=== PATIENT | male | born 1955 | race Caucasian/White ===

== ENCOUNTER 2016-11-27 21:54 | Inpatient (IN) | payer BC, MEDICARE ==
[~2016-11-27] VITALS: Ht 182.9 cm; Wt 96.3 kg
--- NOTE | 2016-11-27 21:45 | NUR ---
ADMIT DIRECT ADMIT TO SURGICAL RM 132 FROM [facility]IA [facility].
[~2016-11-27 21:54] MED LIST: ALBU2.5V7 AEROSOL; ATOR40TA64 PO; BENZ200C36 PO; BUME1TAB17 PO; GLYB5TAB8 PO; INSU100I3 SQ; INSU100V8 SQ; LEVO750T20 PO; METF500T4 PO; METO25TA6 PO; MULT-933 PO; POTA20TA10 PO; PRED10TA PO; SPIR25TA4 PO; TIOT18CA3 ORAL INH; WARF5TAB76 PO
[2016-11-27 21:55] VITALS: RESP 28
--- OUTSIDE RECORDS SUMMARY | 2016-11-27 22:01 | XMS REPORT ---
Author Author Lynne Lanier Organization [employer] Address Unknown Phone Unavailable Care Team Providers Care Memorial Designer Name Role Phone Lynne Lanier CP Unavailable Allergies No Known Allergies Problems Problem Type Condition ICD-9 Code Onset Dates Condition Status Problem Acute venous embolism and thrombosis of unspecified deep vessels of lower extremity 453.40 Active Problem Tobacco abuse V15.82 Active Problem Impotence of organic origin 607.84 Active Problem Coronary atherosclerosis of unspecified type of vessel, [place] or graft 414.00 Active Problem Coronary atherosclerosis of [place] coronary artery 414.01 Active Problem Personal history of venous thrombosis and embolism V12.51 Active Problem Anticoagulation therapy V58.61 Active Problem Congestive heart failure, unspecified 428.0 Active Problem Coronary atherosclerosis of [place] coronary artery 414.01 Active Problem Diabetes Mellitus Type 2, not stated as uncontrolled 250.00 Active Assessment Anticoagulation therapy V58.61 Active Problem Mixed hyperlipidemia 272.2 Active Problem COPD 496 Active Problem Diabetes mellitus without mention of complication, type II or unspecified type, uncontrolled 250.02 Active Medications Medication Code System Code Instructions Start Date End Date Status Dosage Warfarin Sodium [facility] [address]-63 5MG Orally as directed take 1 tablet every day exept Wed take 1.5 tablets for a dose of 7.5mg Results No Known Results Summary Purpose eClinicalWorks Submission
--- OUTSIDE RECORDS SUMMARY | 2016-11-27 22:01 | XMS REPORT ---
Author Lynne Modi [facility] e[employer] Address Unknown Phone Unavailable Care Team Providers Care Pharmacy Grad Intern Name Role Phone Lynne Lanier CP Unavailable Allergies, Adverse Reactions, Alerts Substance Reaction Event Type Penicillin fever Drug Allergy Problems Problem Type Condition ICD-9 Code Onset Dates Condition Status Problem Tobacco abuse V15.82 Active Problem Impotence of organic origin 607.84 Active Problem Congestive heart failure, unspecified 428.0 Active Assessment Cough 786.2 Active Problem Acute venous embolism and thrombosis of unspecified deep vessels of lower extremity 453.40 Active Problem Diabetes mellitus without mention of complication, type II or unspecified type, uncontrolled 250.02 Active Medications Medication Code System Code Instructions Start Date End Date Status Dosage Lasix [facility] [address]-10 20 MG Orally Once a day Oct 11, 2014 1 tablet Ventolin HFA [facility] 2] [address]-52 108 (90 Base) MCG/ACT Inhalation every 4 hrs Oct 23, 2013 2 puffs as needed doxycycline NDC 0 100 mg Orally BID Nov 29, 2014 Dec 06, 2014 1 capsule GlyBURIDE [facility] 2] [address]-91 5MG Orally Once a day TAKE ONE TABLET BY MOUTH ONCE DAILY Viagra [facility] 2] [address]-27 100 MG Orally Once a day Oct 08, 2013 1 tablet as needed Benadryl [facility] [place] 2] [address]-06 25 MG Orally takesp in am 4 ca 1 capsule as needed Lantus SoloStar [facility] [place]NOTE 2] [address]-59 100 UNIT/ML Subcutaneous QHS Nov 19, 2014 20 units Albuterol Sulfate [facility] [place]NOTE 2] [address]-70 1.25 MG/3ML Inhalation qid Oct 12, 2014 3 ml as needed Metformin HCl [facility] [place]NOTE 2] [address]-80 500 MG Orally Twice a day February 18, 2014 1 tablet with meals Warfarin Sodium [facility] [place]NOTE 2] [address]-96 5MG TAKE ONE & ONE-HALF TABLETS BY MOUTH ONCE DAILY Procedures Procedure Coding System Code Date OFFICE VISIT, EST-LOW COMPLEXITY (15 MIN.) CPT-4 94016 Nov 29, 2014 RAPID INFLUENZA, IN HOUSE CPT-4 15341 Nov 29, 2014 Vital Signs Date/Time: Nov 29, 2014 Height 71.5 inches Weight 215.8 lbs Temperature 97.8 F Oximetry 96 % Blood Pressure Diastolic 82 mm Hg Blood Pressure Systolic 112 mm Hg Cardiac Monitoring Heart Rate 80 Beats per Minute Results No Known Results Summary Purpose eClinicalWorks Submission
--- OUTSIDE RECORDS SUMMARY | 2016-11-27 22:01 | XMS REPORT ---
Author Author Lynne Lanier Organization [employer] Address Unknown Phone Unavailable Care Team Providers Care Financial Reporting Manager Name Role Phone Lynne Lanier CP Unavailable Allergies No Known Allergies Problems Problem Type Condition ICD-9 Code Onset Dates Condition Status Problem Tobacco abuse V15.82 Active Problem Impotence of organic origin 607.84 Active Problem Congestive heart failure, unspecified 428.0 Active Problem COPD 496 Active Problem Mixed hyperlipidemia 272.2 Active Problem Acute venous embolism and thrombosis of unspecified deep vessels of lower extremity 453.40 Active Problem Diabetes mellitus without mention of complication, type II or unspecified type, uncontrolled 250.02 Active Medications No Known Medications Results No Known Results Summary Purpose eClinicalWorks Submission
--- OUTSIDE RECORDS SUMMARY | 2016-11-27 22:01 | XMS REPORT ---
Author Author Lynne Lanier Organization [employer] Address Unknown Phone Unavailable Care Team Providers Care Memorial Adviser Name Role Phone Lynne Lanier CP Unavailable Allergies No Known Allergies Problems Problem Type Condition ICD-9 Code Onset Dates Condition Status Problem Tobacco abuse V15.82 Active Problem Impotence of organic origin 607.84 Active Problem Congestive heart failure, unspecified 428.0 Active Problem Acute venous embolism and thrombosis of unspecified deep vessels of lower extremity 453.40 Active Problem Diabetes mellitus without mention of complication, type II or unspecified type, uncontrolled 250.02 Active Medications Medication Code System Code Instructions Start Date End Date Status Dosage Lantus SoloStar [facility] [address]-79 100 UNIT/ML Subcutaneous QHS Nov 19, 2014 Active 20 units Vital Signs Date/Time: Nov 17, 2014 Height 71.5 inches Weight 208.4 lbs Temperature 98.6 F Blood Pressure Diastolic 88 mm Hg Blood Pressure Systolic 118 mm Hg Cardiac Monitoring Heart Rate 90 Beats per Minute BMI 28.66 Index Oximetry 95 % Results No Known Results Summary Purpose eClinicalWorks Submission
--- OUTSIDE RECORDS SUMMARY | 2016-11-27 22:01 | XMS REPORT ---
Author Author Carisa Pastor Organization [employer] Address Unknown Phone Unavailable Care Team Providers Care Farmworker [employer] Name Role Phone Carisa Pastor CP Unavailable Allergies No Known Allergies Problems Problem Type Condition Code Onset Dates Condition Status Problem Tobacco abuse V15.82 Active Problem Anticoagulation therapy V58.61 Active Problem Congestive heart failure, unspecified 428.0 Active Problem Type 2 diabetes mellitus with hyperglycemia E11.65 Active Problem Personal history of venous thrombosis and embolism V12.51 Active Problem Chronic obstructive pulmonary disease with (acute) exacerbation J44.1 Active Problem Coronary atherosclerosis of [place] coronary artery 414.01 Active Problem Diabetes Mellitus Type 2, not stated as uncontrolled 250.00 Active Problem Coronary atherosclerosis of unspecified type of vessel, [place] or graft 414.00 Active Problem Coronary atherosclerosis of [place] coronary artery 414.01 Active Problem COPD 496 Active Problem Diabetes mellitus without mention of complication, type II or unspecified type, uncontrolled 250.02 Active Problem Acute thromboembolism of deep veins of lower extremity I82.409 Active Problem Mixed hyperlipidemia E78.2 Active Problem Impotence of organic origin 607.84 Active Medications Medication Code System Code Instructions Start Date End Date Status Dosage Metoprolol Tartrate [facility] [address]-84 50 MG Orally Twice a day Aug 08, 2016 1 tablet Results No Known Results Summary Purpose eClinicalWorks Submission
--- OUTSIDE RECORDS SUMMARY | 2016-11-27 22:01 | XMS REPORT ---
Author Author Lynne Lanier Organization [employer] Address Unknown Phone Unavailable Care Team Providers Care Business Continuity Management Director Name Role Phone Lynne Lanier CP Unavailable Allergies No Known Allergies Problems Problem Type Condition ICD-9 Code Onset Dates Condition Status Problem Diabetes mellitus without mention of complication, type II or unspecified type, uncontrolled 250.02 Active Problem Impotence of organic origin 607.84 Active Problem Acute venous embolism and thrombosis of unspecified deep vessels of lower extremity 453.40 Active Problem Mixed hyperlipidemia 272.2 Active Problem COPD 496 Active Problem Coronary atherosclerosis of unspecified type of vessel, [place] or graft 414.00 Active Problem Coronary atherosclerosis of [place] coronary artery 414.01 Active Problem Personal history of venous thrombosis and embolism V12.51 Active Problem Congestive heart failure, unspecified 428.0 Active Problem Tobacco abuse V15.82 Active Problem Diabetes Mellitus Type 2, not stated as uncontrolled 250.00 Active Problem Anticoagulation therapy V58.61 Active Medications Medication Code System Code Instructions Start Date End Date Status Dosage Metformin HCl [facility] [address]-70 500 MG Orally Twice a day February 18, 2014 1 tablet with meals Results No Known Results Summary Purpose eClinicalWorks Submission
--- OUTSIDE RECORDS SUMMARY | 2016-11-27 22:02 | XMS REPORT ---
Author Moreno Dugan Organization [employer] Address Unknown Phone Unavailable Care Team Providers Care Integrated Logistics Programs Director Name Role Phone Moreno León CP Unavailable Allergies, Adverse Reactions, Alerts Substance Reaction Event Type Penicillin fever Drug Allergy Percocet vomiting Drug Allergy Problems Problem Type Condition Code Onset Dates Condition Status Problem Acute venous embolism and thrombosis of unspecified deep vessels of lower extremity 453.40 Active Problem Tobacco abuse V15.82 Active Problem Impotence of organic origin 607.84 Active Problem Coronary atherosclerosis of unspecified type of vessel, [place] or graft 414.00 Active Problem Coronary atherosclerosis of [place] coronary artery 414.01 Active Problem Personal history of venous thrombosis and embolism V12.51 Active Problem Anticoagulation therapy V58.61 Active Problem Congestive heart failure, unspecified 428.0 Active Problem Coronary atherosclerosis of [place] coronary artery 414.01 Active Problem Diabetes Mellitus Type 2, not stated as uncontrolled 250.00 Active Assessment halfway (current) use of anticoagulants Z79.01 Active Assessment Other specified diabetes mellitus without complications E13.9 Active Problem Mixed hyperlipidemia 272.2 Active Assessment Acute kidney failure, unspecified N17.9 Active Problem COPD 496 Active Assessment Abnormal results of liver function studies R94.5 Active Problem Diabetes mellitus without mention of complication, type II or unspecified type, uncontrolled 250.02 Active Medications Medication Code System Code Instructions Start Date End Date Status Dosage Potassium Bicarb-Citric Acid [facility] [place] [address]-87 20 MEQ Orally Once a day 1 tablet ProAir HFA [facility] [place]NOTE 2] [address]-73 108 (90 Base) MCG/ACT Inhalation every 4 hrs February 11, 2015 2 puffs as needed Albuterol Sulfate [facility] [place] 2[facility] [address]-87 1.25 MG/3ML Inhalation qid Oct 12, 2014 3 ml as needed Warfarin Sodium [facility] [place] 2[place] [address]-37 5MG Orally as directed take 1 tablet daily except saturday, saturday, saturday take 1.5 tablets Budesonide [facility] [place] 2] [address]-13 Inhalation Twice a day not defined Metformin HCl [facility] [place] 2] [address]-70 500 MG Orally Twice a day February 18, 2014 1 tablet with meals Lantus SoloStar [facility] [place] 2] [address]-09 100 UNIT/ML Subcutaneous Once a day Nov 19, 2014 15 units Ventolin HFA [facility] [place]NOTE 2] [address]-21 108 (90 Base) MCG/ACT Inhalation every 4 hrs Oct 23, 2013 2 puffs as needed Atorvastatin Calcium [facility] [place] 2] [address]-80 40 MG Orally Once a day 1 tablet Metoprolol Tartrate [facility] [place] 2] [address]-24 25 MG Orally Twice a day 1 tablet GlyBURIDE [facility] [place] 2] [address]-81 10 mg Orally Once a day TAKE ONE TABLET BY MOUTH ONCE DAILY Procedures Procedure Coding System Code Date COMPREHENSIVE METABOLIC PANEL CPT-4 10842 Aug 18, 2015 PROTIME INR, IN HOUSE CPT-4 10642 Aug 18, 2015 OFFICE VISIT, EST-MOD. COMPLEXITY (25 MIN) CPT-4 69812 Aug 18, 2015 Vital Signs Date/Time: Aug 18, 2015 Height 71.5 in Weight 209.0 lbs Temperature 98.0 F Blood Pressure Diastolic 62 mm Hg Blood Pressure Systolic 124 mm Hg Cardiac Monitoring Heart Rate 67 /min BMI 28.74 Index Respiratory Rate 18 /min Results No Known Results Summary Purpose eClinicalWorks Submission
--- OUTSIDE RECORDS SUMMARY | 2016-11-27 22:02 | XMS REPORT ---
Author Author Moreno León Organization e[employer]Works Address Unknown Phone Unavailable Care Team Providers Care Aerophysics Engineer Name Role Phone Moreno León CP Unavailable Allergies, Adverse Reactions, Alerts Substance Reaction Event Type Penicillin fever Drug Allergy Percocet vomiting Drug Allergy Problems Problem Type Condition ICD-9 Code Onset Dates Condition Status Problem Acute venous embolism and thrombosis of unspecified deep vessels of lower extremity 453.40 Active Problem Tobacco abuse V15.82 Active Problem Impotence of organic origin 607.84 Active Problem Coronary atherosclerosis of unspecified type of vessel, [place] or graft 414.00 Active Problem Coronary atherosclerosis of [place] coronary artery 414.01 Active Problem Personal history of venous thrombosis and embolism V12.51 Active Problem Anticoagulation therapy V58.61 Active Problem Congestive heart failure, unspecified 428.0 Active Problem Coronary atherosclerosis of [place] coronary artery 414.01 Active Problem Diabetes Mellitus Type 2, not stated as uncontrolled 250.00 Active Assessment Anticoagulation therapy V58.61 Active Assessment Personal history of venous thrombosis and embolism V12.51 Active Assessment Congestive heart failure, unspecified 428.0 Active Problem Mixed hyperlipidemia 272.2 Active Assessment Coronary atherosclerosis of [place] coronary artery 414.01 Active Problem COPD 496 Active Assessment Sinoatrial node dysfunction 427.81 Active Problem Diabetes mellitus without mention of complication, type II or unspecified type, uncontrolled 250.02 Active Medications Medication Code System Code Instructions Start Date End Date Status Dosage Metoprolol Tartrate [facility] [address]-42 25 MG Orally Twice a day 1 tablet Atorvastatin Calcium [facility] [address]-77 40 MG Orally Once a day 1 tablet GlyBURIDE [facility] [address]-81 10 mg Orally Once a day TAKE ONE TABLET BY MOUTH ONCE DAILY ProAir HFA [facility] [address]-11 108 (90 Base) MCG/ACT Inhalation every 4 hrs February 11, 2015 2 puffs as needed Lantus SoloStar [facility] [address]-36 100 UNIT/ML Subcutaneous Once a day Nov 19, 2014 15 units Potassium Bicarb-Citric Acid [facility] [address]-27 20 MEQ Orally Once a day 1 tablet Warfarin Sodium [facility] [address]-80 5MG Orally as directed take 1 tablet every day exept Wed take 1.5 tablets for a dose of 7.5mg [place] [facility] [address]-19 5-325 MG Orally every 6 hrs as needed for pain. take no other tylenol products or pain medicines while on this. May 12, 2015 May 26, 2015 1 tablet as needed Ventolin HFA [facility] [address]-82 108 (90 Base) MCG/ACT Inhalation every 4 hrs Oct 23, 2013 2 puffs as needed Albuterol Sulfate [facility] [address]-08 1.25 MG/3ML Inhalation qid Oct 12, 2014 3 ml as needed Budesonide [facility] [address]-91 Inhalation Twice a day not defined Metformin HCl [facility] [address]-69 500 MG Orally Twice a day February 18, 2014 1 tablet with meals Procedures Procedure Coding System Code Date PROTIME INR, IN HOUSE CPT-4 57868 May 12, 2015 OFFICE VISIT, EST-MOD. COMPLEXITY (25 MIN) CPT-4 45173 May 12, 2015 COMPLETE CBC W/AUTO DIFF WBC CPT-4 48919 May 12, 2015 IH CMP CPT-4 77547 May 12, 2015 Vital Signs Date/Time: May 12, 2015 Height 71.5 in Weight 207.4 lbs Temperature 98.5 F Blood Pressure Diastolic 62 mm Hg Blood Pressure Systolic 98 mm Hg Cardiac Monitoring Heart Rate 81 /min BMI 28.52 Index Oximetry 96 % Respiratory Rate 18 /min Results Name Result Date Reference Range Unit Abnormality Flag In House Protime INR Summary Purpose eClinicalWorks Submission
--- OUTSIDE RECORDS SUMMARY | 2016-11-27 22:02 | XMS REPORT | Continuity of Care Document ---
Author Author [facility] Organization [facility] Address Unknown Phone Unavailable Support Name Relationship Address Phone JESUАЛЕКСАНДР Carver Salma HUDSON Caregiver [facility] Unknown [phone] KEN SIFUENTES MD Caregiver [address] [place] [address] [place] [phone] TAQUERIASTEPHEN NEAL Next Of Kin [address] [place] [address] CP Insurance Providers Payer Name Policy Number Subscriber Name Relationship Self Pay Young Silva 17 Self Advance Directives Directive Response Recorded Date/Time Advanced Directives Type None 11/30/14 11:57pm Problems Medical Problems Problem Onset Date Status Deep venous thrombosis of lower extremity Unknown Active Acute Bronchitis Unknown Active COPD EXacerbation Unknown Active Elevated troponin Unknown Active COPD exacerbation Unknown Active Acute CHF (congestive heart failure) Unknown Active Pleural effusion due to CHF (congestive heart failure) Unknown Active Diabetes Unknown Active Hypertension Unknown Active Hypercholesterolemia Unknown Active Tobacco dependence Unknown Active History of pulmonary embolus (PE) Unknown Active Elevated troponin Unknown Active Lung consolidation Unknown Active Hemoptysis Unknown Active CHF (congestive heart failure) Unknown Active COPD exacerbation Unknown Active Elevated INR (international normalized ratio) due to prior anticoagulant medication ingestion Unknown Active Elevated INR (international normalized ratio) due to prior anticoagulant medication ingestion Unknown Active VTE (venous thromboembolism) 11/25/2014 Active Medications Medication Dose Route Sig Days/Qty Instructions Order Date Discontinued Date Status Insulin Lispro 7 U SQ BEFORE MEALS 09/19/13 08/30/14 Discontinued Warfarin Sodium 7.5 Mg PO DAILY 09/20/13 Active [Insulin] 20 Unit BEDTIME 12/04/13 08/30/14 Discontinued [Metformin] 500 Mg TWICE A DAY 08/30/14 Active [Glyburide] 25 DAILY 08/30/14 Active Furosemide 20 Mg PO DAILY 30 Qty 09/01/14 10/09/14 Discontinued Albuterol Sulfate 2.5 Mg AEROSOL FOUR TIMES DAILY For COPD 1 Qty 10/09/14 Discontinued Multivitamin DAILY 09/15/14 Active Albuterol Sulfate 1 Puff INH EVERY 4 HOURS PRN DYSPNEA 09/15/1404/17 Discontinued Furosemide 20 Mg PO DAILY 30 Qty 10/09/14 Active Albuterol Sulfate 2.5 Mg AEROSOL FOUR TIMES DAILY For COPD 1 Qty Active Albuterol Sulfate 1 Puff INH EVERY 4 HOURS PRN DYSPNEA 1 Qty 10/09/14 Active Prednisone 20 Mg PO DIRECTED 18 Qty Take 3 pills for 3 days THEN, Active Social History Social History Problem Response Recorded Date/Time Hx Substance Use No 12/01/2014 12:11am Hx Alcohol Use No 12/01/2014 12:11am Has the pt used tobacco in the last 12 months Yes 08/30/2014 10:36am Tobacco Usage none 08/30/2014 9:49am Query Response Start Date Stop Date Smoking Status Former smoker Hospital Discharge Instructions No hospital discharge instructions. Plan of Care No plan of care. Functional Status Query Response Date Recorded Physical Hygiene Self December 01, 2014 12:11am Disabilities Visual December 01, 2014 12:11am Devices Used Dentures Glasses December 01, 2014 12:11am Dressing Self December 01, 2014 12:11am Ambulation Self December 01, 2014 12:11am Diet Self December 01, 2014 12:11am Mental Status Alert Oriented December 01, 2014 12:11am Disabilities Visual December 01, 2014 12:11am Devices Used Dentures Glasses December 01, 2014 12:11am Physical Hygiene Self December 01, 2014 12:11am Dressing Self December 01, 2014 12:11am Ambulation Self December 01, 2014 12:11am Diet Self December 01, 2014 12:11am Allergies, Adverse Reactions, Alerts Allergen Type Severity Reaction Status Last Updated Penicillin Adverse Reaction Unknown GET SICK Active 11/30/14 "MYCINS" Allergy Unknown Active 09/19/13 Immunizations Name Given Type Hx Influenza Vaccination Y AUG 2014 Historical Hx Pneumococcal Vaccination Y 09/2014 Historical Hx Tetanus, Diptheria, Pertussis Yes Historical Hx Influenza Vaccination Y AUG 2014 Historical Hx Tetanus, Diptheria, Pertussis Yes Historical Vital Signs Acute Vital Signs Vital Response Date/Time Temperature (Fahrenheit) 98.2 deg F (96.8 - 99.1) Temperature (Calculated Celsius) 36.46439 degrees C (36.0 - 37.3) Pulse Rate (adult) 88 bpm (60 - 100) Respiratory Rate 22 breaths/min (10 - 20) O2 Sat by Pulse Oximetry 95 % (90 - 100) Blood Pressure 133/89 mm Hg Height 6 ft 0 in Weight 216 lb Body Mass Index 29.0 kg/m^2 Results Test Source Date Result Interp. Ref. Range Comments Activated Partial Thromboplast Time October 09, 2014 8:47pm 39.8 SEC H 24-36 Ordering r/o VTE Yes Alanine Aminotransferase (ALT/SGPT) December 01, 2014 12:13am 50 U/L N 21 -72 Albumin December 01, 2014 12:13am 3.7 G/DL N 3.5-5.0 Albumin/Globulin Ratio December 01, 2014 12:13am 1.3 RATIO N 1.1-2.2 Alkaline Phosphatase December 01, 2014 12:13am 47 U/L N 38-126 Anion Gap December 01, 2014 12:13am 10 MEQ/L N 5-15 Aspartate Amino Transf (AST/SGOT) December 01, 2014 12:13am 31 U/L N 17- 59 BUN/Creatinine Ratio December 01, 2014 12:13am 20 RATIO N 6-26 Band Neutrophils # August 31, 2014 4:56am 0.1 T/MM3 - Band Neutrophils % August 31, 2014 4:56am 1.0 % N 0-6 Basophils # (Auto) December 01, 2014 12:13am 0.0 T/MM3 N 0-0.2 Basophils (%) (Auto) December 01, 2014 12:13am 0.3 % N 0-2 Blood Urea Nitrogen December 01, 2014 12:13am 16.0 MG/DL N 9-20 Calcium Level December 01, 2014 12:13am 9.0 MG/DL N 8.4-10.2 Calculated Osmolality December 01, 2014 12:13am 269 MOSM/KG N 261-280 Carbon Dioxide Level December 01, 2014 12:13am 27 MEQ/L N 22-30 Chemistry Specimen Hemolysis December 01, 2014 12:13am < 15 0-25 0-25 : No Hemolysis.26-70: Slight Hemolysis - can falsely elevate K and Urine Protein. 71-285: Moderate Hemolysis - can falsely elevate K, Troponin I, CA 19-9, PTH, CSF GLucose, and Urine Protein, and can falsely decrease Phenytoin. 286-999: Gross Hemolysis - can falsely elevate K, Troponin I, CA 19-9, PTH, CSF Glucose, and Urine Protine, and can falsely decrease Phenytoin. Recommend specimen recollection. Chloride Level December 01, 2014 12:13am 101 MEQ/L N 98-107 Cholesterol Level December 31, 2011 1:45pm 260 MG/DL H 132-199 Cholesterol/HDL Ratio December 31, 2011 1:45pm 7.0 RATIO H 0-5.0 Creatinine December 01, 2014 12:13am 0.8 MG/DL N 0.8-1.5 D-Dimer October 09, 2014 8:47pm 186 NG/ML N 0-230 <230 NG/ML D-DU= PRESUMPTIVE NEGATIVE FOR PE OR DVT>230 NG/ML D-DU=ADDITIONAL EVAL FOR PE OR DVT RECOMMENDED Eosinophils # (Auto) December 01, 2014 12:13am 0.1 T/MM3 N 0-0.5 Eosinophils (%) (Auto) December 01, 2014 12:13am 0.9 % N 0-4 Globulin December 01, 2014 12:13am 2.9 G/DL N 2.4-3.6 Glomerular Filtration Rate Calc December 01, 2014 12:13am 99 - Glucometer September 01, 2014 10:08am 350 mg/dL H 75-110 Glucose Level December 01, 2014 12:13am 137 MG/DL H 75-110 HDL Cholesterol Direct December 31, 2011 1:45pm 37 MG/DL L 40-60 Hematocrit December 01, 2014 12:13am 40.7 % L 41-53 Hemoglobin December 01, 2014 12:13am 13.6 GM/DL N 13.5-17.5 Hemoglobin A1c August 31, 2014 4:56am 7.7 % H 6-7 <6.0 NON-DIABETIC RANGE6.0-7.0 ADA THERAPEUTIC RANGE >7.0 ACTION SUGGESTED Icterus Index December 01, 2014 12:13am < 2 0-7 Immature Granulocyte # (Auto) December 01, 2014 12:13am 0.01 T/MM3 N 0.00 -0.03 Immature Granulocyte % (Auto) December 01, 2014 12:13am 0.2 % N 0.0-0.5 Influenza Type A Antigen December 01, 2014 12:13am Negative - Negative for Flu A protein antigen. Assay sensitivity is90%. Influenza Type B Antigen December 01, 2014 12:13am Negative - Negative for Flu B protein antigen. Assay sensitivity is90%. LDL Cholesterol, Calculated December 31, 2011 1:45pm 179.4 H 66-159 Lab Scanned Report January 02, 2012 8:27am REFERENCE LAB [id number] - Lymphocytes # (Auto) December 01, 2014 12:13am 1.3 T/MM3 N 1-4.8 Lymphocytes # (Manual) September 01, 2014 5:13am 1.2 T/MM3 N 1-4.8 Lymphocytes % (Manual) September 01, 2014 5:13am 12.0 % L 23-45 Lymphocytes (%) (Auto) December 01, 2014 12:13am 21.9 % L 23-45 Mean Corpuscular Hemoglobin December 01, 2014 12:13am 30.0 UUG N 26-34 Mean Corpuscular Hemoglobin Concent December 01, 2014 12:13am 33.4 GM/DL N 31-37 Mean Corpuscular Volume December 01, 2014 12:13am 89.6 UM3 N 80-100 Mean Platelet Volume December 01, 2014 12:13am 9.9 UM3 N 9.4-12.4 Monocytes # (Auto) December 01, 2014 12:13am 0.7 T/MM3 N 0-0.8 Monocytes # (Manual) September 01, 2014 5:13am 0.1 T/MM3 N 0-0.8 Monocytes % (Manual) September 01, 2014 5:13am 1.0 % N 0-9.0 Monocytes (%) (Auto) December 01, 2014 12:13am 11.4 % H 0-9.0 GH-Foa-Z-Type Natriuretic Peptide December 01, 2014 12:13am 06178 PG/ML H 0-175 Rule in cut points: <50 years old=450; 50-75 years old=900; >75 years old=1800; When utilizing ProBNP rule-in cut points, adjustment for impaired renal function is typically not required. Neutrophils # (Auto) December 01, 2014 12:13am 3.8 T/MM3 N 1.8-7.7 Neutrophils # (Manual) September 01, 2014 5:13am 9.0 T/MM3 H 1.8-7.7 Neutrophils % (Manual) September 01, 2014 5:13am 87.0 % H 33-66 Neutrophils (%) (Auto) December 01, 2014 12:13am 65.3 % N 33-66 Platelet Count December 01, 2014 12:13am 147 T/MM3 N 130-400 Potassium Level December 01, 2014 12:13am 4.5 MEQ/L N 3.6-5 Prealbumin August 30, 2014 6:30am 18.5 MG/DL N 17.6-36.0 COMMENT blood in lab Prostate Specific Antigen Screen August 15, 2009 9:15am 0.53 NG/ML N 0- 4.0 Prothromb Time International Ratio October 09, 2014 8:47pm 3.78 H 0.81- 1.09 THERAPUTIC RANGE=2.00-3.00 FOR ANTI-THROMBOSIS THERAPUTIC RANGE=2.50- 3.50 FOR IMPLANTED VALVE RDW Standard Deviation December 01, 2014 12:13am 46.0 FL N 36.9-50.2 Red Blood Count December 01, 2014 12:13am 4.54 M/MM3 N 4.50-5.90 Sodium Level December 01, 2014 12:13am 138 MEQ/L N 134-144 Tests Not Done March 09, 2009 8:42pm Not done - Has specimen been collected/obtained? Y Thyroid Stimulating Hormone (TSH) August 30, 2014 6:30am 2.09 MIU/L N 0.47-4.68 COMMENT blood in lab Total Bilirubin December 01, 2014 12:13am 0.70 MG/DL N 0.20-1.30 Total Protein December 01, 2014 12:13am 6.6 G/DL N 6.3-8.2 Triglycerides Level December 31, 2011 1:45pm 218 MG/DL H 40-160 Troponin I December 01, 2014 12:13am 0.088 ng/ml N 0-0.12 Turbidity December 01, 2014 12:13am < 20 0-20 Urinalysis Comment August 30, 2014 11:00am Microscopic not ind. - Has specimen been collected/obtained? Y Urine Bilirubin August 30, 2014 11:00am Negative - Has specimen been collected/obtained? Y Urine Blood August 30, 2014 11:00am Trace-lysed H - Has specimen been collected/obtained? Y Urine Collection Type August 30, 2014 11:00am Voided-not cc-midstr - Has specimen been collected/obtained? Y Urine Color August 30, 2014 11:00am Yellow - Has specimen been collected/obtained? Y Urine Glucose (UA) August 30, 2014 11:00am Negative - Has specimen been collected/obtained? Y Urine Ketones August 30, 2014 11:00am Negative - Has specimen been collected/obtained? Y Urine Leukocyte Esterase August 30, 2014 11:00am Negative - Has specimen been collected/obtained? Y Urine Microalbumin April 24, 2010 3:10pm 83.0 MG/L H 0-17 Urine Nitrite August 30, 2014 11:00am Negative - Has specimen been collected/obtained? Y Urine Protein August 30, 2014 11:00am Negative - Has specimen been collected/obtained? Y Urine Random Microalbumin December 31, 2011 1:45pm Ref lab rpt scanned - --- 01/02/12 0824 ---UMALBR previously reported as: SEND OUT Urine Specific [place] August 30, 2014 11:00am 1.010 L - Has specimen been collected/obtained? Y Urine Turbidity August 30, 2014 11:00am Clear - Has specimen been collected/obtained? Y Urine Urobilinogen August 30, 2014 11:00am 0.2 EU/DL - Has specimen been collected/obtained? Y Urine pH August 30, 2014 11:00am 5.5 - Has specimen been collected/ obtained? Y VLDL Cholesterol December 31, 2011 1:45pm 43.6 MG/DL H 0-28 Venous Blood Lactate August 30, 2014 7:14am 0.9 MMOL/L N 0.6-2.2 Vitamin B12 Level August 30, 2014 6:30am 563 PG/ML N 239-931 COMMENT blood in lab White Blood Count December 01, 2014 12:13am 5.8 T/MM3 N 4.5-11.0 Blood Culture Blood August 30, 2014 7:14am NO GROWTH AFTER 5 DAYS Gram Stain Sputum-Induced Sputum March 08, 2008 3:14pm Name: YOUNG SILVA Unit #: [id number] : 1955 Sex: M Loc / Sv: [facility] DOS: 10/14/14 Signed Report #: [id number] DIAGNOSTIC IMAGING REPORT TYPE OF EXAM: US VENOUS DUPLEX, LOWER EXT LT Dictated By: VIRAJ STILES MD INDICATION: ITS.REASON: 453.40 ACUTE VENOUS EMBOLISM US VENOUS DUPLEX, LOWER EXT LT: Comparison: September 19, 2013 Findings: Note that the images on PACS are mislabeled right instead of the left lower extremity which was actually scanned. Grayscale and color Doppler duplex imaging of the lower extremity shows a small amount of peripheral nonocclusive deep vein thrombosis seen primarily within the superficial femoral vein through the popliteal vein. The overall amount of clot is significantly decreased from the comparison study. Clot also extends into the posterior tibial vein, and greater saphenous vein. There is a trace amount in the common femoral vein as well. Impression: Interval decrease in the deep vein thrombosis within the left lower extremity with a small amount of chronic appearing residual clot as above. These results were called to the ordering clinical service by the electroencephalogram technologist at the time of the exam. . Procedures Procedure Status Date Provider(s) CHEST X-RAY 2VW FRONTAL&LATL completed 10/09/14 COMPREHEN METABOLIC PANEL completed 10/09/14 ASSAY OF NATRIURETIC PEPTIDE completed 10/09/14 ASSAY OF TROPONIN QUANT completed 10/09/14 COMPLETE CBC W/AUTO DIFF WBC completed 10/09/14 FIBRIN DEGRADATION QUANT completed 10/09/14 PROTHROMBIN TIME completed 10/09/14 THROMBOPLASTIN TIME PARTIAL completed 10/09/14 ELECTROCARDIOGRAM TRACING completed 10/09/14 AIRWAY INHALATION TREATMENT completed 10/09/14 AIRWAY INHALATION TREATMENT completed 10/09/14 EVALUATE PT USE OF INHALER completed 10/09/14 THER/PROPH/DIAG INJ IV PUSH completed 10/09/14 EMERGENCY DEPT VISIT completed 10/09/14 [id number]"INJECTION, FUROSEMIDE, UP TO 20 MG" completed 10/09/14 EXTREMITY STUDY completed 10/14/14 Encounters Encounter Location Date/Time Departed Emergency Room [facility] 11/30/14 10:47pm Registered Clinic [facility] 10/14/14 1:39pm Departed Emergency Room [facility] 10/09/14 8:16pm Departed Emergency Room [facility] 09/15/14 6:00pm Recent Diagnosis
--- OUTSIDE RECORDS SUMMARY | 2016-11-27 22:02 | XMS REPORT ---
Author Author Moreno León Organization [employer] Address Unknown Phone Unavailable Care Team Providers Care Heel Builder Name Role Phone Moreno León CP Unavailable Allergies No Known Allergies Problems Problem Type Condition Code Onset Dates Condition Status Problem Acute venous embolism and thrombosis of unspecified deep vessels of lower extremity 453.40 Active Problem Tobacco abuse V15.82 Active Problem Impotence of organic origin 607.84 Active Problem Coronary atherosclerosis of unspecified type of vessel, [place] or graft 414.00 Active Problem Coronary atherosclerosis of [place] coronary artery 414.01 Active Problem Personal history of venous thrombosis and embolism V12.51 Active Problem Anticoagulation therapy V58.61 Active Problem Congestive heart failure, unspecified 428.0 Active Problem Coronary atherosclerosis of [place] coronary artery 414.01 Active Problem Diabetes Mellitus Type 2, not stated as uncontrolled 250.00 Active Problem Mixed hyperlipidemia 272.2 Active Problem COPD 496 Active Problem Diabetes mellitus without mention of complication, type II or unspecified type, uncontrolled 250.02 Active Medications Medication Code System Code Instructions Start Date End Date Status Dosage GlyBURIDE [facility] [address]-99 5 MG Orally Once a day TAKE 2 TABLET BY MOUTH ONCE DAILY Results No Known Results Summary Purpose [employer] Submission
--- OUTSIDE RECORDS SUMMARY | 2016-11-27 22:02 | XMS REPORT ---
Author Author Moreno León Organization [employer] Address Unknown Phone Unavailable Care Team Providers Care Contracts Intern Name Role Phone Moreno León CP Unavailable Allergies No Known Allergies Problems Problem Type Condition Code Onset Dates Condition Status Problem Acute venous embolism and thrombosis of unspecified deep vessels of lower extremity 453.40 Active Problem Tobacco abuse V15.82 Active Problem Impotence of organic origin 607.84 Active Problem Coronary atherosclerosis of unspecified type of vessel, [place] or graft 414.00 Active Problem Coronary atherosclerosis of [place] coronary artery 414.01 Active Problem Personal history of venous thrombosis and embolism V12.51 Active Problem Anticoagulation therapy V58.61 Active Problem Congestive heart failure, unspecified 428.0 Active Problem Coronary atherosclerosis of [place] coronary artery 414.01 Active Problem Diabetes Mellitus Type 2, not stated as uncontrolled 250.00 Active Problem Mixed hyperlipidemia 272.2 Active Problem COPD 496 Active Problem Diabetes mellitus without mention of complication, type II or unspecified type, uncontrolled 250.02 Active Medications No Known Medications Results No Known Results Summary Purpose [employer] Submission
--- OUTSIDE RECORDS SUMMARY | 2016-11-27 22:02 | XMS REPORT ---
Author Author Lynne Lanier Organization [employer] Address Unknown Phone Unavailable Care Team Providers Care County Surveyor Name Role Phone Lynne Lanier CP Unavailable [...] Start Date End Date Status Dosage Lasix [facility] [address]-33 20 MG Orally Once a day Oct 11, 2014 Active 1 tablet Vital Signs Date/Time: Oct 14, 2014 Height 71.5 inches Weight 220.5 lbs Temperature 97.8 F Blood Pressure Diastolic 90 mm Hg Blood Pressure Systolic 130 mm Hg Cardiac Monitoring Heart Rate 80 Beats per Minute BMI 30.32 Index Respiratory Rate 18 per Minute Results No Known Results Summary Purpose [employer] Submission
--- OUTSIDE RECORDS SUMMARY | 2016-11-27 22:02 | XMS REPORT | Continuity of Care Document ---
Author Author [facility] Organization [facility] Address Unknown Phone Unavailable Support Name Relationship Address Phone KRISTY WOOD MD Caregiver [address] [place] [address] [place] [phone] PORFIRIO GEORGE MD Caregiver [address] [place] [address] [place] [id number] HELGA KITCHEN MD Caregiver [address] [place] [address] STEPHEN MENG Next Of Kin [address] [place], [place] [address] CP Insurance Providers Payer Name Policy Number Subscriber Name Relationship Self Pay Young Silva 17 Self Advance Directives Directive Response Recorded Date/Time Advanced Directives Type Unable to Obtain 08/30/14 8:16am Ordered Resuscitation Status Full Code 08/31/14 5:28pm Resuscitation Documents on File No 08/30/14 10:35am Chief Complaint and Reason for Visit Chief Complaint CHF, COPD EXACERBATION Reason for Visit COPD EXacerbation Elevated troponin COPD exacerbation Acute CHF (congestive heart failure) Pleural effusion due to CHF (congestive heart failure) Diabetes Hypertension Hypercholesterolemia Tobacco dependence History of pulmonary embolus (PE) Elevated troponin Problems Medical Problems Problem Onset Date Status [...] (PE) Unknown Active Elevated troponin Unknown Active Medications Medication Dose Route Sig Days/Qty Instructions Order Date Discontinued Date Status Insulin Lispro 7 U SQ BEFORE MEALS 09/19/13 08/30/14 Discontinued Warfarin Sodium 7.5 Mg PO DAILY 09/20/13 Active [Insulin] 20 Unit BEDTIME 12/04/13 08/30/14 Discontinued [Metformin] 08/30/14 Active [Glyburide] 10/27/14 Active Furosemide 20 Mg PO DAILY 30 Qty 09/01/14 Active Guaifenesin/Dextromethorphan 1 Tab PO EVERY 12 HOURS 30 Days 09/01/14 Active Lisinopril 5 Mg PO BEDTIME For HYPERTENSION 30 Qty 09/01/14 Active Ciprofloxacin/Ciprofloxa HCl 1 Tab PO TWICE A DAY For COPD 10 Qty 09/01 Active Albuterol Sulfate 2.5 Mg AEROSOL FOUR TIMES DAILY For COPD 1 Qty Active Prednisone 20 Mg PO GIVE WITH BREAKFAST For COPD 5 Qty Take 1 tablet, by mouth, daily with breakfast. 09/01/14 Active Social History Social History Problem Response Recorded Date/Time Smoking Status Former smoker 08/30/2014 10:36am Hx Substance Use No 08/30/2014 7:06am Hx Alcohol Use No 08/30/2014 7:06am Has the pt used tobacco in the last 12 months Yes 08/30/2014 10:36am Query Response Start Date Stop Date Smoking Status Current some day smoker Hospital Discharge Instructions Instructions: Care Instructions: Reason for Hospitalization: COPD exastebation I was in the hospital because (patient own words): Short of Breath Discharge Diet: 2000 KCAL ADA, low sodium Discharge Activity: As tolerated, return to work on 09/02/14 Follow Up Appointments: [facility] week [phone] 09/08 8:45 Recommend check BMP due to MICHAEL use Dr Hassan in 2-3 weeks for cardiac evaluation [phone] 09/15 1:00 Patient Instructions: Please avoid Tobacco products Condition at time of discharge: Good 1.Take your anticoagulant (Aspirin, Coumadin, Lovenox,etc) as directed Driving 1.May drive in 4 weeks if you had your LEFT extremity operated on. 2.May drive in 6 weeks if you had your RIGHT extremity operated on. Wound/Incision Care: Tegaderm 1.Clear dressing is to remain in place for 2 weeks. 2.Do not pick at it or scrub it while showering. 3.If the dressing begins to pull up, secure it with 4x4 gauze pad and tape. 4.You may shower; however, do not submerge yourself in water until the incision is completely healed. Mepilex 1.Dressing to remain in place until your follow up appointment. 2.If this dressing starts peeling up slightly, it may be reinforced, if it peels excessively, notify your surgeon's office. 3.You may shower with the dressing in place, but do not submerge in water 4.Do not allow water to seep under the dressing, if it should seep under, remove the dressing and notify your surgeon. Notify Physician If: Call your Surgeon if you have: 1.Chest pain, difficulty breathing, fever>100.5 degrees, chills, heart rate >100, confusion, or persistent nausea/vomitting. 2.Severe pain, swelling, redness, or warmth in either of your legs. 3.During office hours, call [phone] 4. After hours, please call [facility] at [phone], and have the draw bench operator page your Surgeon IN THE EVENT OF AN EMERGENCY, seek medical care at the nearest Emergency Room Condition at time of discharge: Good Plan of Care Discharge Date 09/01/14 12:50pm Disposition 01 DISCHARGED HOME, SELF-CARE Instructions/[place] [facility] [place] Prescriptions See Medications Section Functional Status Query Response Date Recorded Physical Hygiene Self September 01, 2014 11:56am Disabilities Visual September 01, 2014 11:56am Devices Used Glasses September 01, 2014 11:56am Dressing Self September 01, 2014 11:56am Ambulation Self September 01, 2014 11:56am Diet Self September 01, 2014 11:56am Mental Status Alert Oriented September 01, 2014 11:56am Disabilities Visual September 01, 2014 11:56am Devices Used Glasses September 01, 2014 11:56am Physical Hygiene Self September 01, 2014 11:56am Dressing Self September 01, 2014 11:56am Ambulation Self September 01, 2014 11:56am Diet Self September 01, 2014 11:56am Allergies, Adverse Reactions, Alerts Allergen Type Severity Reaction Status Last Updated Penicillin Adverse Reaction Unknown GET SICK Active 08/30/14 "MYCINS" Allergy Unknown Active 09/19/13 Immunizations Name Given Type Hx Influenza Vaccination Y AUG 2014 Historical Hx Pneumococcal Vaccination Y 09/10 Historical Hx Influenza Vaccination Y AUG 2014 Historical Vital Signs Acute Vital Signs Vital Response Date/Time Temperature (Fahrenheit) 96.3 deg F (96.8 - 99.1) Temperature (Calculated Celsius) 35.64642 degrees C (36.0 - 37.3) Temperature Source Oral Pulse Rate (adult) 85 bpm (60 - 100) Respiratory Rate 16 breaths/min (10 - 20) O2 Sat by Pulse Oximetry 96 % (90 - 100) Height 6 ft 0 in Weight 213 lb Body Mass Index 28.0 kg/m^2 Results Test Source Date Result Interp. Ref. Range Comments Activated Partial Thromboplast Time December 04, 2013 6:30pm 42.9 SEC H 24-36 Alanine Aminotransferase (ALT/SGPT) August 30, 2014 6:30am 43 U/L N 21- 72 Albumin August 30, 2014 6:30am 3.8 G/DL N 3.5-5.0 Albumin/Globulin Ratio August 30, 2014 6:30am 1.2 RATIO N 1.1-2.2 Alkaline Phosphatase August 30, 2014 6:30am 48 U/L N 38-126 Anion Gap September 01, 2014 5:13am 9 MEQ/L N 5-15 Aspartate Amino Transf (AST/SGOT) August 30, 2014 6:30am 28 U/L N 17- 59 BUN/Creatinine Ratio September 01, 2014 5:13am 28 RATIO H 6-26 Band Neutrophils # August 31, 2014 4:56am 0.1 T/MM3 - Band Neutrophils % August 31, 2014 4:56am 1.0 % N 0-6 Basophils # (Auto) August 30, 2014 6:30am 0.1 T/MM3 N 0-0.2 Basophils (%) (Auto) August 30, 2014 6:30am 0.9 % N 0-2 Blood Urea Nitrogen September 01, 2014 5:13am 25.0 MG/DL H 9-20 Calcium Level September 01, 2014 5:13am 9.1 MG/DL N 8.4-10.2 Calculated Osmolality September 01, 2014 5:13am 280 MOSM/KG N 261-280 Carbon Dioxide Level September 01, 2014 5:13am 31 MEQ/L H 22-30 Chemistry Specimen Hemolysis September 01, 2014 5:13am < 15 0-25 0-25: No Hemolysis.26-70: Slight Hemolysis - can falsely elevate K and Urine Protein. 71-285: Moderate Hemolysis - can falsely elevate K, Troponin I, CA 19-9, PTH, CSF GLucose, and Urine Protein, and can falsely decrease Phenytoin. 286-999: Gross Hemolysis - can falsely elevate K, Troponin I, CA 19-9, PTH, CSF Glucose, and Urine Protine, and can falsely decrease Phenytoin. Recommend specimen recollection. Chloride Level September 01, 2014 5:13am 99 MEQ/L N 98-107 Cholesterol Level December 31, 2011 1:45pm 260 MG/DL H 132-199 Cholesterol/HDL Ratio December 31, 2011 1:45pm 7.0 RATIO H 0-5.0 Creatinine September 01, 2014 5:13am 0.9 MG/DL N 0.8-1.5 Eosinophils # (Auto) August 30, 2014 6:30am 0.1 T/MM3 N 0-0.5 Eosinophils (%) (Auto) August 30, 2014 6:30am 1.3 % N 0-4 Globulin August 30, 2014 6:30am 3.1 G/DL N 2.4-3.6 Glomerular Filtration Rate Calc September 01, 2014 5:13am 86 - Glucometer September 01, 2014 10:08am 350 mg/dL H 75-110 Glucose Level September 01, 2014 5:13am 251 MG/DL H 75-110 HDL Cholesterol Direct December 31, 2011 1:45pm 37 MG/DL L 40-60 Hematocrit September 01, 2014 5:13am 40.5 % L 41-53 Hemoglobin September 01, 2014 5:13am 13.3 GM/DL L 13.5-17.5 Hemoglobin A1c August 31, 2014 4:56am 7.7 % H 6-7 <6.0 NON-DIABETIC RANGE6.0-7.0 ADA THERAPEUTIC RANGE >7.0 ACTION SUGGESTED Icterus Index September 01, 2014 5:13am < 2 0-7 Immature Granulocyte # (Auto) August 30, 2014 6:30am 0.00 T/MM3 N 0.00- 0.03 Immature Granulocyte % (Auto) August 30, 2014 6:30am 0.0 % N 0.0-0.5 Influenza Type A Antigen August 30, 2014 8:20am Negative - Negative for Flu A protein antigen. Assay sensitivity is90%. Influenza Type B Antigen August 30, 2014 8:20am Negative - Negative for Flu B protein antigen. Assay sensitivity is90%. LDL Cholesterol, Calculated December 31, 2011 1:45pm 179.4 H 66-159 Lab Scanned Report January 02, 2012 8:27am REFERENCE LAB [id number] - Lymphocytes # (Auto) August 30, 2014 6:30am 2.0 T/MM3 N 1-4.8 Lymphocytes # (Manual) September 01, 2014 5:13am 1.2 T/MM3 N 1-4.8 Lymphocytes % (Manual) September 01, 2014 5:13am 12.0 % L 23-45 Lymphocytes (%) (Auto) August 30, 2014 6:30am 36.3 % N 23-45 Mean Corpuscular Hemoglobin September 01, 2014 5:13am 30.4 UUG N 26-34 Mean Corpuscular Hemoglobin Concent September 01, 2014 5:13am 32.8 GM/DL N 31-37 Mean Corpuscular Volume September 01, 2014 5:13am 92.5 UM3 N 80-100 Mean Platelet Volume September 01, 2014 5:13am 9.9 UM3 N 9.4-12.4 Monocytes # (Auto) August 30, 2014 6:30am 0.6 T/MM3 N 0-0.8 Monocytes # (Manual) September 01, 2014 5:13am 0.1 T/MM3 N 0-0.8 Monocytes % (Manual) September 01, 2014 5:13am 1.0 % N 0-9.0 Monocytes (%) (Auto) August 30, 2014 6:30am 11.3 % H 0-9.0 SX-Rgw-P-Type Natriuretic Peptide August 30, 2014 6:30am 81008 PG/ML H 0-175 Rule in cut points: <50 years old=450; 50-75 years old=900; >75 years old=1800; When utilizing ProBNP rule-in cut points, adjustment for impaired renal function is typically not required. Neutrophils # (Auto) August 30, 2014 6:30am 2.7 T/MM3 N 1.8-7.7 Neutrophils # (Manual) September 01, 2014 5:13am 9.0 T/MM3 H 1.8-7.7 Neutrophils % (Manual) September 01, 2014 5:13am 87.0 % H 33-66 Neutrophils (%) (Auto) August 30, 2014 6:30am 50.2 % N 33-66 Platelet Count September 01, 2014 5:13am 215 T/MM3 N 130-400 Potassium Level September 01, 2014 5:13am 4.7 MEQ/L N 3.6-5 Prealbumin August 30, 2014 6:30am 18.5 MG/DL N 17.6-36.0 COMMENT blood in lab Prostate Specific Antigen Screen August 15, 2009 9:15am 0.53 NG/ML N 0- 4.0 Prothromb Time International Ratio September 01, 2014 5:13am 2.57 H 0.81- 1.09 THERAPUTIC RANGE=2.00-3.00 FOR ANTI-THROMBOSIS THERAPUTIC RANGE=2.50- 3.50 FOR IMPLANTED VALVE RDW Standard Deviation September 01, 2014 5:13am 48.4 FL N 36.9-50.2 Red Blood Count September 01, 2014 5:13am 4.38 M/MM3 L 4.50-5.90 Sodium Level September 01, 2014 5:13am 139 MEQ/L N 134-144 Tests Not Done March 09, 2009 8:42pm Not done - Has specimen been collected/obtained? Y Thyroid Stimulating Hormone (TSH) August 30, 2014 6:30am 2.09 MIU/L N 0.47-4.68 COMMENT blood in lab Total Bilirubin August 30, 2014 6:30am 0.40 MG/DL N 0.20-1.30 Total Protein August 30, 2014 6:30am 6.9 G/DL N 6.3-8.2 Triglycerides Level December 31, 2011 1:45pm 218 MG/DL H 40-160 Troponin I August 30, 2014 7:07pm 0.154 ng/ml PH 0-0.12 Turbidity September 01, 2014 5:13am < 20 0-20 Urinalysis Comment August 30, [...] lab rpt scanned - --- 01/02/12 0824 ---UMAL previously reported as: SEND OUT Urine Specific [place] August 30, 2014 11:00am 1.010 L - [...] COMMENT blood in lab White Blood Count September 01, 2014 5:13am 10.3 T/MM3 N 4.5-11.0 Blood Culture Blood August 30, 2014 7:14am NO GROWTH AFTER 48 HOURS Gram Stain Sputum-Induced Sputum March 08, 2008 3:14pm Name: YOUNG SILVA Unit #: [id number] : [id number] Sex: M Loc / Svc: ED DOS: 08/30/14 Signed Report #: [id number] DIAGNOSTIC IMAGING REPORT TYPE OF EXAM: CHEST, PA & LATERAL Dictated By: VIRAJ STILES MD INDICATION: ITS.REASON: dyspnea CHEST 2-VIEWS UPRIGHT (PA & LAT): COMPARISON: December 04, 2013 FINDINGS: Patchy air space disease in both lungs. No pneumothorax. Some areas of scarring and pleural thickening from prior bilateral old rib fractures. Small bilateral effusions Cardiac silhouette is mildly enlarged. Mediastinal contours are stable. Impression: Probable mild pulmonary edema. Some underlying atypical pneumonia or viral illness cannot be entirely excluded. . Procedures No known history of procedures. Encounters Encounter Location Date/Time Admitted Inpatient [facility] 08/30/14 8:13am Recent Diagnosis COPD EXacerbation Elevated troponin COPD exacerbation Acute CHF (congestive heart failure) Pleural effusion due to CHF (congestive heart failure) Diabetes Hypertension Hypercholesterolemia Tobacco dependence History of pulmonary embolus (PE) Elevated troponin
--- OUTSIDE RECORDS SUMMARY | 2016-11-27 22:03 | XMS REPORT ---
Author Author Carisa Pastor Organization [employer] Address Unknown Phone Unavailable Care Team Providers Care Fine Hairer Name Role Phone Carisa Pastor CP Unavailable [...] exacerbation J44.1 Active Problem Coronary atherosclerosis of [place] coronary artery 414.01 Active Problem Diabetes Mellitus Type 2, not stated as uncontrolled 250.00 Active Problem Coronary atherosclerosis of unspecified type of vessel, [place] or graft 414.00 Active Problem Coronary atherosclerosis of [place] coronary artery 414.01 Active Problem COPD 496 Active Problem Diabetes mellitus without mention of complication, type II or unspecified type, uncontrolled 250.02 Active Problem Acute venous embolism and thrombosis of unspecified deep vessels of lower extremity 453.40 Active Problem Mixed hyperlipidemia 272.2 Active Problem Impotence of organic origin 607.84 Active Medications No Known Medications Results No Known Results Summary Purpose [employer] Submission
--- OUTSIDE RECORDS SUMMARY | 2016-11-27 22:03 | XMS REPORT ---
Author Author Lynne Lanier Organization [employer] Address Unknown Phone Unavailable Care Team Providers Care Back Maker Name Role Phone Lynne Lanier CP Unavailable [...] Date End Date Status Dosage Metformin HCl [facility] [address]-75 500 MG Orally Twice a day February 18, 2014 Active 1 tablet with meals GlyBURIDE [facility] [address]-86 5MG Orally Once a day Active TAKE ONE TABLET BY MOUTH ONCE DAILY Vital Signs Date/Time: Nov 17, 2014 Height 71.5 inches Weight 208.4 lbs Temperature 98.6 F Blood Pressure Diastolic 88 mm Hg Blood Pressure Systolic 118 mm Hg Cardiac Monitoring Heart Rate 90 Beats per Minute BMI 28.66 Index Oximetry 95 % Results No Known Results Summary Purpose [employer] Submission
--- OUTSIDE RECORDS SUMMARY | 2016-11-27 22:03 | XMS REPORT ---
Author Angelica Mitchell [facility] [employer] Address Unknown Phone Unavailable Care Team Providers Care Hand Splitter Name Role Phone Angelica Ledesma CP Unavailable Allergies, Adverse Reactions, Alerts Substance Reaction Event Type Penicillin Info Not Available Drug Allergy Problems Problem Type Condition ICD-9 Code Onset Dates Condition Status Problem Impotence of organic origin 607.84 Active Problem Acute venous embolism and thrombosis of unspecified deep vessels of lower extremity 453.40 Active Problem Tobacco abuse V15.82 Active Assessment Acute venous embolism and thrombosis of unspecified deep vessels of lower extremity 453.40 Active Problem Diabetes mellitus without mention of complication, type II or unspecified type, uncontrolled 250.02 Active Assessment Acute upper respiratory infections of unspecified site 465.9 Active Medications Medication Code System Code Instructions Start Date End Date Status Dosage Benadryl [facility] [address]-93 25 MG Orally takesp in am 4 ca Active 1 capsule as needed Advair Diskus [facility] [address]-16 250-50 MCG/DOSE Inhalation Twice a day May 25, 2014 Active 1 puff Warfarin Sodium [facility] [address]-24 10mg/7.5mg Orally every day Active Take 10 M-W-F/7.5 all other days Viagra [facility] [address]-69 100 MG Orally Once a day Oct 08, 2013 Active 1 tablet as needed Metformin HCl [facility] [address]-70 500 MG Orally Twice a day February 18, 2014 Active 1 tablet with meals Ventolin HFA [facility] [address]-72 108 (90 Base) MCG/ACT Inhalation every 4 hrs Oct 23, 2013 Active 2 puffs as needed Warfarin Sodium [facility] [address]-85 7.5 MG Orally every day Active take 10 m-w-f/7.5 all other days Azithromycin [facility] [address]-70 250 MG Orally Once a day Sep 17, 2014 Sep 22, 2014 Active 2 tablet on the first day, then 1 tablet daily for 4 days GlyBURIDE [facility] [address]-81 5MG Orally Once a day Active TAKE ONE TABLET BY MOUTH ONCE DAILY Procedures Procedure Coding System Code Date OFFICE VISIT, EST-LOW COMPLEXITY (15 MIN.) CPT-4 88693 Sep 17, 2014 PROTIME INR, IN HOUSE CPT-4 83925 Sep 17, 2014 Vital Signs Date/Time: Sep 17, 2014 Height 71.5 inches Weight 215.8 lbs Temperature 97.6 F Blood Pressure Diastolic 78 mm Hg Blood Pressure Systolic 128 mm Hg Cardiac Monitoring Heart Rate 96 Beats per Minute BMI 29.68 Index Respiratory Rate 20 per Minute Results Name Result Date Reference Range Unit In House Protime INR Summary Purpose [employer] Submission
--- OUTSIDE RECORDS SUMMARY | 2016-11-27 22:03 | XMS REPORT ---
Author Author Moreno León Organization [employer] Address Unknown Phone Unavailable Care Team Providers Care Tissue Technologist Name Role Phone Moreno León CP Unavailable Allergies No Known Allergies Problems Problem Type Condition Code Onset Dates Condition Status Problem Diabetes [...] Active Problem Anticoagulation therapy V58.61 Active Medications No Known Medications Results No Known Results Summary Purpose [employer] Submission
--- OUTSIDE RECORDS SUMMARY | 2016-11-27 22:03 | XMS REPORT ---
Author Author Lynne Lanier Organization [employer] Address Unknown Phone Unavailable Care Team Providers Care Equipment Cleaner Name Role Phone Lynne Lanier CP Unavailable Allergies No Known Allergies Problems Problem Type Condition Code Onset Dates Condition Status Problem Acute venous embolism and thrombosis of unspecified deep vessels of lower extremity 453.40 Active Problem Tobacco abuse V15.82 Active Problem Impotence of organic origin 607.84 Active Problem Coronary atherosclerosis of unspecified type of vessel, [place] or graft 414.00 Active Problem Coronary atherosclerosis of [place] coronary artery 414.01 Active Problem Personal history of venous thrombosis and embolism V12.51 Active Problem Anticoagulation therapy V58.61 Active Problem Congestive heart failure, unspecified 428.0 Active Problem Coronary atherosclerosis of [place] coronary artery 414.01 Active Problem Diabetes Mellitus Type 2, not stated as uncontrolled 250.00 Active Problem Mixed hyperlipidemia 272.2 Active Problem COPD 496 Active Problem Diabetes mellitus without mention of complication, type II or unspecified type, uncontrolled 250.02 Active Medications No Known Medications Results No Known Results Summary Purpose [employer] Submission
--- OUTSIDE RECORDS SUMMARY | 2016-11-27 22:03 | XMS REPORT ---
Author Author Lynne Lanier Organization [employer] Address Unknown Phone Unavailable Care Team Providers Care Cashier Checker Name Role Phone Lynne Lanier CP Unavailable Allergies No Known Allergies Problems Problem Type Condition Code Onset Dates Condition Status Problem Acute venous embolism and thrombosis of unspecified deep vessels of lower extremity 453.40 Active Problem Tobacco abuse V15.82 Active Problem Impotence of organic origin 607.84 Active Problem Coronary atherosclerosis of unspecified type of vessel, [place] or graft 414.00 Active Problem Coronary atherosclerosis of [place] coronary artery 414.01 Active Problem Personal history of venous thrombosis and embolism V12.51 Active Problem Anticoagulation therapy V58.61 Active Problem Congestive heart failure, unspecified 428.0 Active Problem Coronary atherosclerosis of [place] coronary artery 414.01 Active Problem Diabetes Mellitus Type 2, not stated as uncontrolled 250.00 Active Assessment COPD 496 Active Problem Mixed hyperlipidemia 272.2 Active Problem COPD 496 Active Problem Diabetes mellitus without mention of complication, type II or unspecified type, uncontrolled 250.02 Active Medications Medication Code System Code Instructions Start Date End Date Status Dosage Bumetanide [facility] [address]-15 1 MG Orally Twice every day Aug 23, 2015 1 tablet Results No Known Results Summary Purpose [employer] Submission
--- OUTSIDE RECORDS SUMMARY | 2016-11-27 22:03 | XMS REPORT ---
Author Author Carisa Pastor Organization [employer] Address Unknown Phone Unavailable Care Team Providers Care Oil Well Pumper Name Role Phone Carisa Pastor CP Unavailable [...] exacerbation J44.1 Active Problem Coronary atherosclerosis of [place] coronary artery 414.01 Active Problem Diabetes Mellitus Type 2, not stated as uncontrolled 250.00 Active Problem Coronary atherosclerosis of unspecified type of vessel, [place] or graft 414.00 Active Problem Coronary atherosclerosis of [place] coronary artery 414.01 Active Problem COPD 496 Active Problem Diabetes mellitus without mention of complication, type II or unspecified type, uncontrolled 250.02 Active Assessment COPD 496 Active Problem Acute thromboembolism of deep veins of lower extremity I82.409 Active Problem Mixed hyperlipidemia E78.2 Active Problem Impotence of organic origin 607.84 Active Medications Medication Code System Code Instructions Start Date End Date Status Dosage [facility] [address]-69 5 MG Orally Once a day May 22, 2016 1 tablet Results No Known Results Summary Purpose [employer] Submission
--- OUTSIDE RECORDS SUMMARY | 2016-11-27 22:03 | XMS REPORT | Continuity of Care Document ---
Author Author [facility] Organization [facility] Address Unknown Phone Unavailable Support Name Relationship Address Phone АЛЕКСАНДР MORAN APRN Caregiver [facility] Unknown [phone] KWESI WILSON DO Caregiver [address] [place] [phone] FADIA MORRIS MD Caregiver [address] [place] [address] [place] [phone] STEPHEN MENG Next Of Kin Unknown [phone] CP Insurance Providers Payer Name Policy Number Subscriber Name Relationship [facility] [id number] Young Silva 17 Self Advance Directives Directive Response Recorded Date/Time Advanced Directives Type None 01/09/15 10:35pm Ordered Resuscitation Status Full Code 01/10/15 12:47am Resuscitation Documents on File No 01/09/15 11:03pm Chief Complaint and Reason for Visit Chief Complaint EXACERBATION OF CHFCOPD,ELEVATED TROPONIN Reason for Visit Diabetes Hypertension Hypercholesterolemia Dyspnea Elevated troponin COPD exacerbation CHF exacerbation Pneumonia Problems Medical Problems Problem Onset Date Status [...] Unknown Active VTE (venous thromboembolism) 11/25/2014 Active COPD exacerbation Unknown Active Dyspnea Unknown Active Elevated troponin Unknown Active COPD exacerbation Unknown Active CHF exacerbation Unknown Active Pneumonia Unknown Active Medications Medication Dose Route Sig Days/Qty Instructions Order Date Discontinued Date Status Insulin Lispro 7 U SQ BEFORE MEALS 09/19/13 08/30/14 Discontinued [Insulin] 20 Unit BEDTIME 12/04/13 08/30/14 Discontinued [...] HOURS PRN DYSPNEA 1 Qty 10/09/14 Active Furosemide 1 Tab PO TWICE A DAY 01/09/15 Active Warfarin Sodium 5 Mg PO m s Take 1 tablet, by mouth, 1 time a day (at 5 pm). 01/09/15 Active Warfarin Sodium 10 Mg PO sat. only 01/09/15 Active Social History Social History Problem Response Recorded Date/Time Chewing Tobacco Status Yes 01/09/2015 7:50pm Hx Substance Use No 01/09/2015 7:50pm Hx Alcohol Use No 01/09/2015 7:50pm Has the pt used tobacco in the last 12 months Yes 01/09/2015 11:06pm Tobacco Usage none 01/10/2015 12:05pm Query Response Start Date Stop Date Smoking Status Former smoker Hospital Discharge Instructions Instructions: Care Instructions: Reason for Hospitalization: Exacerbation of COPD and CHF I was in the hospital because (patient own words): "my enzymes for my heart are a little high." Discharge Diet: Cardiac Diet no caffeine General Information: Patient is being transferred to acute care [facility] Condition at time of discharge: Good 7-[address] Dyer. FOLLOW UP APPOINTMENT WITH IS ON Saturday01-07-15 AT 10:45AM. IF NEED TO RESCHEDULE PLEASE CALL THE OFFICE AT [phone]. Patient Instructions: n/a Wound/Incision Care: n/a Durable Medical Equipment: n/a Notify Physician If: fever > 101, worsening SOA or hemoptysis General Information: n/a Condition at time of discharge: Fair Plan of Care Discharge Date 01/10/15 11:10pm Disposition 02 TO [facility] Instructions/Education Provided [facility] Congestive Heart Failure DI for Chronic Obstructive Pulmonary Disease Prescriptions See Medications Section Functional Status Query Response Date Recorded Physical Hygiene Self January 10, 2015 11:41pm Disabilities Visual January 10, 2015 11:41pm Devices Used Dentures Glasses January 10, 2015 11:41pm Dressing Self January 10, 2015 11:41pm Ambulation Self January 10, 2015 11:41pm Diet Self January 10, 2015 11:41pm Mental Status Alert Oriented January 10, 2015 11:41pm Disabilities Visual January 10, 2015 11:41pm Devices Used Dentures Glasses January 10, 2015 11:41pm Physical Hygiene Self January 10, 2015 11:41pm Dressing Self January 10, 2015 11:41pm Ambulation Self January 10, 2015 11:41pm Diet Self January 10, 2015 11:41pm Allergies, Adverse Reactions, Alerts Allergen Type Severity Reaction Status Last Updated Penicillin Adverse Reaction Unknown GET SICK Active 01/09/15 "MYCINS" Allergy Unknown Active 09/19/13 Immunizations Name Given Type Hx Influenza Vaccination Y AUG 2014 Historical Hx Pneumococcal Vaccination Y AUG 2014 Historical Hx Tetanus, Diptheria, Pertussis Yes Historical Hx Influenza Vaccination Y AUG 2014 Historical Hx Tetanus, Diptheria, Pertussis Yes Historical Vital Signs Acute Vital Signs Vital Response Date/Time Temperature (Fahrenheit) 97.0 deg F (96.8 - 99.1) Temperature (Calculated Celsius) 36.14374 degrees C (36.0 - 37.3) Temperature Source Oral Pulse Rate (adult) 92 bpm (60 - 100) Respiratory Rate 18 breaths/min (10 - 20) O2 Sat by Pulse Oximetry 93 % (90 - 100) Oxygen Delivery Method Nasal Cannula Oxygen Flow Rate 2.00 L/min Height 6 ft 0 in Weight 234 lb Body Mass Index 31.0 kg/m^2 Results Test Source Date Result Interp. Ref. Range Comments Activated Partial Thromboplast Time January 10, 2015 5:54am 33.1 SEC N 24- 36 Alanine Aminotransferase (ALT/SGPT) January 10, 2015 5:54am 59 U/L N 21- 72 Albumin January 10, 2015 5:54am 3.6 G/DL N 3.5-5.0 Albumin/Globulin Ratio January 10, 2015 5:54am 1.3 RATIO N 1.1-2.2 Alkaline Phosphatase January 10, 2015 5:54am 49 U/L N 38-126 Anion Gap January 10, 2015 5:54am 14 MEQ/L N 5-15 Anisocytosis January 10, 2015 5:54am 1+ - Aspartate Amino Transf (AST/SGOT) January 10, 2015 5:54am 38 U/L N 17-59 BUN/Creatinine Ratio January 10, 2015 5:54am 22 RATIO N 6-26 Band Neutrophils # January 10, 2015 5:54am 0.3 T/MM3 - Band Neutrophils % January 10, 2015 5:54am 4.0 % N 0-6 Basophils # (Auto) January 09, 2015 8:03pm 0.0 T/MM3 N 0-0.2 Basophils (%) (Auto) January 09, 2015 8:03pm 0.2 % N 0-2 Blood Urea Nitrogen January 10, 2015 5:54am 22.0 MG/DL H 9-20 Calcium Level January 10, 2015 5:54am 8.5 MG/DL N 8.4-10.2 Calculated Osmolality January 10, 2015 5:54am 288 MOSM/KG H 261-280 Carbon Dioxide Level January 10, 2015 5:54am 29 MEQ/L N 22-30 Chemistry Specimen Hemolysis January 10, 2015 4:51pm < 15 0-25 0-25: No Hemolysis.26-70: Slight [...] decrease Phenytoin. Recommend specimen recollection. Chloride Level January 10, 2015 5:54am 96 MEQ/L L 98-107 Cholesterol Level January 10, 2015 5:54am 131 MG/DL L 132-199 COMMENT FASTING Cholesterol/HDL Ratio January 10, 2015 5:54am 3.9 RATIO N 0-5.0 COMMENT FASTING Creatinine January 10, 2015 5:54am 1.0 MG/DL N 0.8-1.5 D-Dimer October 09, 2014 8:47pm 186 NG/ML N 0-230 <230 NG/ML D-DU= PRESUMPTIVE NEGATIVE FOR PE OR DVT>230 NG/ML D-DU=ADDITIONAL EVAL FOR PE OR DVT RECOMMENDED Eosinophils # (Auto) January 09, 2015 8:03pm 0.0 T/MM3 N 0-0.5 Eosinophils (%) (Auto) January 09, 2015 8:03pm 0.2 % N 0-4 Globulin January 10, 2015 5:54am 2.8 G/DL N 2.4-3.6 Glomerular Filtration Rate Calc January 10, 2015 5:54am 76 - Glucometer January 10, 2015 9:12pm 351 mg/dL H 75-110 Glucose Level January 10, 2015 5:54am 408 MG/DL H 75-110 HDL Cholesterol Direct January 10, 2015 5:54am 34 MG/DL L 40-60 COMMENT FASTING Hematocrit January 10, 2015 5:54am 43.3 % N 41-53 Hemoglobin January 10, 2015 5:54am 13.7 GM/DL N 13.5-17.5 Hemoglobin A1c January 10, 2015 5:54am 10.5 % DH 6-7 <6.0 NON-DIABETIC RANGE6.0-7.0 ADA THERAPEUTIC RANGE >7.0 ACTION SUGGESTED Icterus Index January 10, 2015 5:54am < 2 0-7 Immature Granulocyte # (Auto) January 09, 2015 8:03pm 0.02 T/MM3 N 0.00- 0.03 Immature Granulocyte % (Auto) January 09, 2015 8:03pm 0.2 % N 0.0-0.5 Influenza Type A Antigen January 10, 2015 2:40am Negative - Negative for Flu A protein antigen. Assay sensitivity is90%. Influenza Type B Antigen January 10, 2015 2:40am Negative - Negative for Flu B protein antigen. Assay sensitivity is90%. LDL Cholesterol, Calculated January 10, 2015 5:54am 90.4 N 66-159 COMMENT FASTING Lab Scanned Report January 02, 2012 8:27am REFERENCE LAB [id number] - Lymphocytes # (Auto) January 09, 2015 8:03pm 1.1 T/MM3 N 1-4.8 Lymphocytes # (Manual) January 10, 2015 5:54am 0.1 T/MM3 L 1-4.8 Lymphocytes % (Manual) January 10, 2015 5:54am 1.0 % L 23-45 Lymphocytes (%) (Auto) January 09, 2015 8:03pm 11.1 % L 23-45 Magnesium Level January 10, 2015 5:54am 1.9 MG/DL N 1.6-2.3 Mean Corpuscular Hemoglobin January 10, 2015 5:54am 29.4 UUG N 26-34 Mean Corpuscular Hemoglobin Concent January 10, 2015 5:54am 31.6 GM/DL N 31-37 Mean Corpuscular Volume January 10, 2015 5:54am 92.9 UM3 N 80-100 Mean Platelet Volume January 10, 2015 5:54am 10.5 UM3 N 9.4-12.4 Monocytes # (Auto) January 09, 2015 8:03pm 0.9 T/MM3 H 0-0.8 Monocytes # (Manual) January 10, 2015 5:54am 0.3 T/MM3 N 0-0.8 Monocytes % (Manual) January 10, 2015 5:54am 4.0 % N 0-9.0 Monocytes (%) (Auto) January 09, 2015 8:03pm 8.9 % N 0-9.0 RQ-Kce-A-Type Natriuretic Peptide January 09, 2015 8:03pm 65384 PG/ML H 0- 175 Rule in cut points: <50 years old=450; 50-75 years old=900; >75 years old=1800; When utilizing ProBNP rule-in cut points, adjustment for impaired renal function is typically not required. Neutrophils # (Auto) January 09, 2015 8:03pm 7.9 T/MM3 H 1.8-7.7 Neutrophils # (Manual) January 10, 2015 5:54am 7.0 T/MM3 N 1.8-7.7 Neutrophils % (Manual) January 10, 2015 5:54am 91.0 % H 33-66 Neutrophils (%) (Auto) January 09, 2015 8:03pm 79.4 % H 33-66 Ovalocytes January 10, 2015 5:54am 1+ - Phosphorus Level January 10, 2015 5:54am 4.3 MG/DL N 2.5-4.5 Platelet Count January 10, 2015 5:54am 135 T/MM3 N 130-400 Potassium Level January 10, 2015 5:54am 4.5 MEQ/L N 3.6-5 Prealbumin August 30, 2014 6:30am 18.5 MG/DL N 17.6-36.0 COMMENT blood in lab Procalcitonin December 27, 2014 9:42am < 0.05 NG/ML - PCT </=0.5 ng/ mL - sepsis not likely;PCT >0.5 and </=2 ng/mL - sepsis possible; PCT >2 ng/mL - sepsis likely; PCT >/=10 ng/mL - systemic inflammatory response - sepsis or septic shock highly indicated. Prostate Specific Antigen Screen August 15, 2009 9:15am 0.53 NG/ML N 0- 4.0 Prothromb Time International Ratio January 10, 2015 5:54am 2.23 H 0.81- 1.09 THERAPUTIC RANGE=2.00-3.00 FOR ANTI-THROMBOSIS THERAPUTIC RANGE=2.50- 3.50 FOR IMPLANTED VALVE RDW Standard Deviation January 10, 2015 5:54am 54.7 FL H 36.9-50.2 Red Blood Count January 10, 2015 5:54am 4.66 M/MM3 N 4.50-5.90 Red Cell Morphology Comment January 10, 2015 5:54am Abnormal - Sodium Level January 10, 2015 5:54am 139 MEQ/L N 134-144 Tear Drop Cells January 10, 2015 5:54am 1+ - Tests Not Done March 09, 2009 8:42pm Not done - Has specimen been collected/obtained? Y Thyroid Stimulating Hormone (TSH) January 10, 2015 5:54am 0.36 MIU/L DL 0.47-4.68 Total Bilirubin January 10, 2015 5:54am 1.20 MG/DL N 0.20-1.30 Total Protein January 10, 2015 5:54am 6.4 G/DL N 6.3-8.2 Triglycerides Level January 10, 2015 5:54am 33 MG/DL L 40-160 COMMENT FASTING Troponin I January 10, 2015 4:51pm 0.308 ng/ml PH 0-0.12 COMMENT Q6H. CALL MD IF TROPONIN TRENDS UP AT ALL. [phone] Turbidity January 10, 2015 5:54am < 20 0-20 Urinalysis Comment January 09, 2015 9:55pm Microscopic not ind. - Has specimen been collected/obtained? Y Urine Bilirubin January 09, 2015 9:55pm Negative - Has specimen been collected/obtained? Y Urine Blood January 09, 2015 9:55pm Negative - Has specimen been collected/obtained? Y Urine Collection Type January 09, 2015 9:55pm Cleancatch-midstream - Has specimen been collected/obtained? Y Urine Color January 09, 2015 9:55pm Yellow - Has specimen been collected/obtained? Y Urine Glucose (UA) January 09, 2015 9:55pm 2+ H - Has specimen been collected/obtained? Y Urine Ketones January 09, 2015 9:55pm Negative - Has specimen been collected/obtained? Y Urine Leukocyte Esterase January 09, 2015 9:55pm Negative - Has specimen been collected/obtained? Y Urine Microalbumin April 24, 2010 3:10pm 83.0 MG/L H 0-17 Urine Nitrite January 09, 2015 9:55pm Negative - Has specimen been collected/obtained? Y Urine Protein January 09, 2015 9:55pm Trace H - Has specimen been collected/obtained? Y Urine Random Microalbumin December 31, 2011 1:45pm Ref lab rpt scanned - --- 01/02/12 0824 ---UMALBR previously reported as: SEND OUT Urine Specific [place] January 09, 2015 9:55pm 1.015 - Has specimen been collected/obtained? Y Urine Turbidity January 09, 2015 9:55pm Clear - Has specimen been collected/obtained? Y Urine Urobilinogen January 09, 2015 9:55pm 1.0 EU/DL - Has specimen been collected/obtained? Y Urine pH January 09, 2015 9:55pm 7.0 - Has specimen been collected/ obtained? Y VLDL Cholesterol January 10, 2015 5:54am 6.6 MG/DL N 0-28 COMMENT FASTING Venous Blood Lactate January 09, 2015 8:03pm 1.4 MMOL/L N 0.6-2.2 Vitamin B12 Level August 30, 2014 6:30am 563 PG/ML N 239-931 COMMENT blood in lab White Blood Count January 10, 2015 5:54am 7.7 T/MM3 N 4.5-11.0 Blood Culture Peripheral Blood January 09, 2015 8:03pm NO GROWTH AFTER 24 HOURS Gram Stain Sputum-Induced Sputum March 08, 2008 3:14pm Name: YOUNG SILVA Unit #: [id number] : [id number] Sex: M Loc / Svc: MED DOS: 01/09/15 Signed Report #: [id number] DIAGNOSTIC IMAGING REPORT TYPE OF EXAM: US ARTERIAL EXTREMITY LOWER BI Dictated By: VIRAJ STILES MD Indication: Technique: Grayscale color and duplex Doppler imaging was performed of the arterial tree of both legs. Findings: RIGHT LEG (cm/sec) Common Femoral 104 Superficial Femoral Proximal 284 Mid 85.9 Distal 65.3 Popliteal 74.8 ELSIE-dist 39.2 METHODS STUDY ANALYST-dist 58.4 LEFT LEG (cm/sec) Common Femoral 109 Superficial Femoral Proximal 101 Mid 92.8 Distal 78.9 Popliteal 87.4 ELSIE-prox 70.9 METHODS STUDY ANALYST-prox 68.2 ELSIE-dist 46.9 METHODS STUDY ANALYST-dist 66.6 Scattered atherosclerotic plaque in the right common femoral artery. Elevated velocities in the right profunda femoris and proximal superficial femoral artery. Dampened waveforms in the mid to distal superficial femoral artery and popliteal artery. There are also dampened waveforms throughout the more distal right calf vasculature. No evidence of vascular occlusion. The dorsalis pedis arteries are patent with flow. Left lower extremity also shows increased velocities in the proximal profunda femoris artery, however there are no elevated velocities in the common or superficial femoral arteries. Slightly dampened waveforms in the left calf arteries but no occlusions. IMPRESSION:50-75% stenosis in the right proximal superficial femoral artery and right profunda femoris artery. . Procedures Procedure Status Date Provider(s) EXTREMITY STUDY completed 10/14/14 ROUTINE VENIPUNCTURE completed 11/30/14 CHEST X-RAY 2VW FRONTAL&LATL completed 11/30/14 COMPREHEN METABOLIC PANEL completed 11/30/14 ASSAY OF NATRIURETIC PEPTIDE completed 11/30/14 ASSAY OF TROPONIN QUANT completed 11/30/14 COMPLETE CBC W/AUTO DIFF WBC completed 11/30/14 INFLUENZA A/B AG EIA completed 11/30/14 AIRWAY INHALATION TREATMENT completed 11/30/14 AIRWAY INHALATION TREATMENT completed 11/30/14 AIRWAY INHALATION TREATMENT completed 11/30/14 THER/PROPH/DIAG INJ IV PUSH completed 11/30/14 EMERGENCY DEPT VISIT completed 11/30/14 [id number]"INJECTION, METHYLPREDNISOLONE SODIUM SUCCINATE, UP TO completed CHEST X-RAY 2VW FRONTAL&LATL completed 12/27/14 COMPREHEN METABOLIC PANEL completed 12/27/14 ASSAY OF LACTIC ACID completed 12/27/14 ASSAY OF NATRIURETIC PEPTIDE completed 12/27/14 PROCALCITONIN (PCT) completed 12/27/14 ASSAY OF TROPONIN QUANT completed 12/27/14 COMPLETE CBC W/AUTO DIFF WBC completed 12/27/14 PROTHROMBIN TIME completed 12/27/14 BLOOD CULTURE FOR BACTERIA completed 12/27/14 BLOOD CULTURE FOR BACTERIA completed 12/27/14 INFLUENZA A/B AG EIA completed 12/27/14 ELECTROCARDIOGRAM TRACING completed 12/27/14 AIRWAY INHALATION TREATMENT completed 12/27/14 CBT 1ST HOUR completed 12/27/14 HYDRATE IV INFUSION ADD-ON completed 12/27/14 HYDRATE IV INFUSION ADD-ON completed 12/27/14 HYDRATE IV INFUSION ADD-ON completed 12/27/14 THER/PROPH/DIAG INJ IV PUSH completed 12/27/14 EMERGENCY DEPT VISIT completed 12/27/14 [id number]"INJECTION, METHYLPREDNISOLONE SODIUM SUCCINATE, UP TO completed [id number]"INFUSION, NORMAL SALINE SOLUTION , 1000 CC" completed 12/27/14 EXTREMITY STUDY completed 12/31/14 Encounters Encounter Location Date/Time Discharged Inpatient [facility] 01/09/15 10:30pm Registered [facility] 12/31/14 11:23am Departed Emergency Room [facility] 12/27/14 9:15am Departed Emergency Room [facility] 11/30/14 10:47pm Registered [facility] 10/14/14 1:39pm Recent Diagnosis Diabetes Hypertension Hypercholesterolemia Dyspnea Elevated troponin COPD exacerbation CHF exacerbation Pneumonia
--- OUTSIDE RECORDS SUMMARY | 2016-11-27 22:03 | XMS REPORT | Continuity of Care Document ---
Author Author [facility] Organization [facility] Address Unknown Phone Unavailable Support Name Relationship Address Phone YOLANDA MATHEWS MD Caregiver [facility] [address] [place] [address] Unavailable HELGA KITCHEN [place] [address] TAQUERIA STEPHEN Next Of Kin [address] [place], [place] [id number] CP Insurance Providers Payer Name Policy Number Subscriber Name Relationship Self Pay Young Silva 17 Self Advance Directives Directive Response Recorded Date/Time Advanced Directives Type None 09/15/14 6:23pm Chief Complaint and Reason for Visit Chief Complaint Dyspnea/Respdistress Reason for Visit [id number] Problems Medical Problems Problem Onset Date Status [...] Lung consolidation Unknown Active Hemoptysis Unknown Active Medications Medication Dose Route Sig Days/Qty Instructions Order Date Discontinued Date Status Insulin Lispro 7 U SQ BEFORE MEALS 09/19/13 08/30/14 Discontinued Warfarin Sodium 7.5 Mg PO DAILY 09/20/13 Active [Insulin] 20 Unit BEDTIME 12/04/13 08/30/14 Discontinued [Metformin] 500 Mg TWICE A DAY 08/30/14 Active [Glyburide] 25 DAILY 08/30/14 Active Furosemide 20 Mg PO DAILY 30 Qty 09/01/14 Active Lisinopril 5 Mg PO BEDTIME For HYPERTENSION 30 Qty 09/01/14 Active Albuterol Sulfate 2.5 Mg AEROSOL FOUR TIMES DAILY For COPD 1 Qty Active Multivitamin DAILY 09/15/14 Active Albuterol Sulfate 1 Puff INH EVERY 4 HOURS PRN DYSPNEA 09/15/14 Active Social History Social History Problem Response Recorded Date/Time Smoking Status Former smoker 09/15/2014 6:23pm When did patient STOP smoking? APPROX ONE MONTH AGO 09/15/2014 6:23pm Hx Substance Use No 09/15/2014 6:23pm Hx Alcohol Use No 09/15/2014 6:23pm Has the pt used tobacco in the [...] Up [facility] [phone] 09/08 8:45 Recommend check BMP due to MICHAEL use Dr Hassan in 2-3 weeks for cardiac evaluation [phone] 09/15 1:00 Patient Instructions: Please avoid Tobacco products Condition at time of discharge: Good Good Worsening fatigue, shortness of breath General Information: n/a Condition at time of discharge: Good Plan of Care Discharge Date 09/01/14 12:50pm Disposition 02 [facility] Condition at Discharge Stable Instructions/Education Provided [facility]est[facility] Prescriptions See Medications Section Referrals HELGA KITCHEN MD Functional Status Query Response Date Recorded Physical Hygiene Self September 15, 2014 6:23pm Disabilities None September 15, 2014 6:23pm Devices Used Glasses September 15, 2014 6:23pm Dressing Self September 15, 2014 6:23pm Ambulation Self September 15, 2014 6:23pm Diet Self September 15, 2014 6:23pm Mental Status Alert September 15, 2014 7:15pm Disabilities None September 15, 2014 6:23pm Devices Used Glasses September 15, 2014 6:23pm Physical Hygiene Self September 15, 2014 6:23pm Dressing Self September 15, 2014 6:23pm Ambulation Self September 15, 2014 6:23pm Diet Self September 15, 2014 6:23pm Allergies, Adverse Reactions, Alerts Allergen Type Severity Reaction Status Last Updated Penicillin Adverse Reaction Unknown GET SICK Active 08/30/14 "MYCINS" Allergy Unknown Active 09/19/13 Immunizations Name Given Type Hx Influenza Vaccination Y AUG 2014 Historical Hx Pneumococcal Vaccination Y 09/10 Historical Hx Influenza Vaccination Y AUG 2014 Historical Vital Signs Acute Vital Signs Vital Response Date/Time Temperature (Fahrenheit) 98.4 deg F (96.8 - 99.1) Temperature (Calculated Celsius) 36.60599 degrees C (36.0 - 37.3) Pulse Rate (adult) 100 bpm (60 - 100) Respiratory Rate 20 breaths/min (10 - 20) O2 Sat by Pulse Oximetry 91 % (90 - 100) Oxygen Flow Rate 0.5 L/min Blood Pressure 148/96 mm Hg Height 6 ft 0 in Weight 213 [...] 01, 2014 5:13am 31 MEQ/L H 22-30 Chloride Level September 01, 2014 5:13am 99 [...] 30, 2014 6:30am 3.1 G/DL N 2.4-3.6 Glucose Level September 01, 2014 5:13am 251 MG/DL H 75-110 Hematocrit September 01, 2014 5:13am 40.5 % L 41-53 Hemoglobin September 01, 2014 5:13am 13.3 GM/DL L 13.5-17.5 Hemoglobin A1c August 31, 2014 4:56am 7.7 % H 6-7 <6.0 NON-DIABETIC RANGE6.0-7.0 ADA THERAPEUTIC RANGE >7.0 ACTION SUGGESTED Influenza Type A Antigen August 30, 2014 8:20am Negative - Negative for Flu A protein antigen. Assay sensitivity is90%. Influenza Type B Antigen August 30, 2014 8:20am Negative - Negative for Flu B protein antigen. Assay sensitivity is90%. LDL Cholesterol, Calculated December 31, 2011 1:45pm 179.4 H 66-159 Lymphocytes # (Auto) August 30, 2014 6:30am [...] 30, 2014 6:30am 11.3 % H 0-9.0 Neutrophils # (Auto) August 30, 2014 6:30am [...] 0- 4.0 Prothromb Time International Ratio September 15, 2014 6:43pm 3.36 H 0.81- 1.09 THERAPUTIC RANGE=2.00-3.00 FOR ANTI-THROMBOSIS [...] 30, 2014 7:07pm 0.154 ng/ml PH 0-0.12 Urine Bilirubin August 30, 2014 11:00am Negative [...] lab rpt scanned - --- 01/02/12 0824 ---AL previously reported as: SEND OUT Urine Specific [place] August 30, 2014 11:00am 1.010 L - Has specimen been collected/obtained? Y Urine Turbidity August 30, 2014 11:00am Clear - Has specimen been collected/obtained? Y Urine Urobilinogen August 30, 2014 11:00am 0.2 EU/DL - Has specimen been collected/obtained? Y Urine pH August 30, 2014 11:00am 5.5 - Has specimen been collected/ obtained? Y VLDL Cholesterol December 31, 2011 1:45pm 43.6 MG/DL H 0-28 Vitamin B12 Level August 30, 2014 6:30am 563 PG/ML N 239-931 COMMENT blood in lab White Blood Count September 01, 2014 5:13am 10.3 T/MM3 N 4.5-11.0 Chemistry Specimen Hemolysis September 01, 2014 5:13am [...] can falsely decrease Phenytoin. Recommend specimen recollection. Urinalysis Comment August 30, 2014 11:00am Microscopic not ind. - Has specimen been collected/obtained? Y Glucometer September 01, 2014 10:08am 350 mg/dL H 75-110 Lab Scanned Report January 02, 2012 8:27am REFERENCE LAB [id number] - HDL Cholesterol Direct December 31, 2011 1:45pm 37 MG/DL L 40-60 Turbidity September 01, 2014 5:13am < 20 0-20 Glomerular Filtration Rate Calc September 01, 2014 5:13am 86 - Immature Granulocyte # (Auto) August 30, 2014 6:30am 0.00 T/MM3 N 0.00- 0.03 Immature Granulocyte % (Auto) August 30, 2014 6:30am 0.0 % N 0.0-0.5 Venous Blood Lactate August 30, 2014 7:14am 0.9 MMOL/L N 0.6-2.2 Icterus Index September 01, 2014 5:13am < 2 0-7 DV-Csw-S-Type Natriuretic Peptide August 30, 2014 6:30am 52099 PG/ML H 0-175 Rule in cut points: <50 years old=450; 50-75 years old=900; >75 years old=1800; When utilizing ProBNP rule-in cut points, adjustment for impaired renal function is typically not required. Blood Culture Blood August 30, 2014 7:14am NO GROWTH AFTER 5 DAYS Gram Stain Sputum-Induced Sputum March 08, 2008 3:14pm Name: YOUNG SILVA Unit #: [id number] : 1955 Sex: M Loc / Svc: ED DOS: 08/30/14 Signed Report #: [id number] DIAGNOSTIC IMAGING REPORT TYPE OF EXAM: CHEST, [...] history of procedures. Encounters Encounter Location Date/Time Departed Emergency Room [facility] 09/15/14 6:00pm Discharged Inpatient [facility] 08/30/14 8:13am Recent Diagnosis
--- OUTSIDE RECORDS SUMMARY | 2016-11-27 22:03 | XMS REPORT ---
Author Author Lynne Lanier Organization [employer] Address Unknown Phone Unavailable Care Team Providers Care Formulation Technician Name Role Phone Lynne Lanier CP Unavailable [...] uncontrolled 250.02 Active Medications No Known Medications Vital Signs Date/Time: Oct 14, 2014 Height 71.5 inches Weight 220.5 lbs Temperature 97.8 F Blood Pressure Diastolic 90 mm Hg Blood Pressure Systolic 130 mm Hg Cardiac Monitoring Heart Rate 80 Beats per Minute BMI 30.32 Index Respiratory Rate 18 per Minute Results No Known Results Summary Purpose [employer]ClinicalWorks Submission
--- OUTSIDE RECORDS SUMMARY | 2016-11-27 22:03 | XMS REPORT ---
Author Author Moreno León Organization [employer] Address Unknown Phone Unavailable Care Team Providers Care Store Lead Name Role Phone Moreno León CP Unavailable Allergies No Known Allergies Problems Problem Type Condition Code Onset Dates Condition Status Problem Diabetes mellitus without mention of complication, type II or unspecified type, uncontrolled 250.02 Active Problem Impotence of organic origin 607.84 Active Problem Acute venous embolism and thrombosis of unspecified deep vessels of lower extremity 453.40 Active Problem Coronary atherosclerosis of unspecified type of vessel, [place] or graft 414.00 Active Problem Coronary atherosclerosis of [place] coronary artery 414.01 Active Problem Personal history of venous thrombosis and embolism V12.51 Active Problem Congestive heart failure, unspecified 428.0 Active Problem Tobacco abuse V15.82 Active Problem Diabetes Mellitus Type 2, not stated as uncontrolled 250.00 Active Problem Anticoagulation therapy V58.61 Active Assessment Anticoagulation therapy V58.61 Active Problem Mixed hyperlipidemia 272.2 Active Problem COPD 496 Active Medications Medication Code System Code Instructions Start Date End Date Status Dosage Warfarin Sodium [facility] [address]-19 5MG Orally as directed take 1 tablet saturday/saturday/saturday/. take one and one half tablet saturday/ saturday/saturday Results No Known Results Summary Purpose [employer]ClinicalWorks Submission
--- OUTSIDE RECORDS SUMMARY | 2016-11-27 22:03 | XMS REPORT ---
Author Moreno Dugan Organization [employer] Address Unknown Phone Unavailable Care Team Providers Care Army Officer Name Role Phone Moreno León CP Unavailable Allergies, Adverse Reactions, Alerts Substance Reaction Event Type Penicillin fever Drug Allergy Problems Problem Type Condition Code Onset Dates Condition Status Problem Diabetes mellitus without mention of complication, type II or unspecified type, uncontrolled 250.02 Active Problem Impotence of organic origin 607.84 Active Problem Acute venous embolism and thrombosis of unspecified deep vessels of lower extremity 453.40 Active Problem Coronary atherosclerosis of unspecified type of vessel, [place] or graft 414.00 Active Problem Coronary atherosclerosis of [place] coronary artery 414.01 Active Problem Personal history of venous thrombosis and embolism V12.51 Active Problem Congestive heart failure, unspecified 428.0 Active Problem Tobacco abuse V15.82 Active Problem Diabetes Mellitus Type 2, not stated as uncontrolled 250.00 Active Problem Anticoagulation therapy V58.61 Active Assessment Personal history of venous thrombosis and embolism V12.51 Active Assessment Anticoagulation therapy V58.61 Active Problem Mixed hyperlipidemia 272.2 Active Assessment Coronary atherosclerosis of unspecified type of vessel, [place] or graft 414.00 Active Problem COPD 496 Active Medications Medication Code System Code Instructions Start Date End Date Status Dosage Lantus SoloStar [facility] [address]-52 100 UNIT/ML Subcutaneous Once a day Nov 19, 2014 15 units Furosemide [facility] [address]-71 40 MG Orally Twice a day 1 tablet Metformin HCl [facility] [address]-24 500 MG Orally Twice a day February 18, 2014 2 tablet with meals Metoprolol Tartrate [facility] [address]-28 25 MG Orally Twice a day 1 tablet Potassium Bicarb-Citric Acid [facility] [address]-82 20 MEQ Orally Once a day 1 tablet Warfarin Sodium [facility] [address]-22 5MG Orally as directed take 1 tablet saturday/saturday/saturday/. take one and one half tablet saturday/ saturday/saturday Benadryl [facility] [address]-42 25 MG Orally takesp in am 4 ca 1 capsule as needed Ventolin HFA [facility] [address]-63 108 (90 Base) MCG/ACT Inhalation every 4 hrs Oct 23, 2013 2 puffs as needed Atorvastatin Calcium [facility] [address]-28 40 MG Orally Once a day 1 tablet Lisinopril [facility] [address]-81 2.5 MG Orally Once a day 1 tablet GlyBURIDE [facility] [address]-31 10 mg Orally Once a day TAKE ONE TABLET BY MOUTH ONCE DAILY Albuterol Sulfate [facility] [address]-29 1.25 MG/3ML Inhalation qid Oct 12, 2014 3 ml as needed Budesonide [facility] [address]-56 Inhalation Twice a day not defined Procedures Procedure Coding System Code Date OFFICE VISIT, EST-MOD. COMPLEXITY (25 MIN) CPT-4 70694 February 10, 2015 PROTIME INR, IN HOUSE CPT-4 70791 February 10, 2015 Vital Signs Date/Time: February 10, 2015 Height 71.5 in Weight 205.8 lbs Temperature 97.8 F Blood Pressure Diastolic 70 mm Hg Blood Pressure Systolic 90 mm Hg Cardiac Monitoring Heart Rate 72 /min BMI 28.30 Index Respiratory Rate 24 /min Results No Known Results Summary Purpose [employer]ClinicalWorks Submission
--- OUTSIDE RECORDS SUMMARY | 2016-11-27 22:03 | XMS REPORT ---
Author Moreno Dugan Organization [employer] Address Unknown Phone Unavailable Care Team Providers Care Regional Extension Service Specialist Name Role Phone Moreno León CP Unavailable Allergies No Known Allergies Problems Problem Type Condition ICD-9 Code Onset Dates Condition Status Problem Acute venous embolism and thrombosis of unspecified deep vessels of lower extremity 453.40 Active Problem Tobacco abuse V15.82 Active Problem Impotence of organic origin 607.84 Active Problem Coronary atherosclerosis of unspecified type of vessel, [place] or graft 414.00 Active Problem Coronary atherosclerosis of [place] coronary artery 414.01 Active Problem Personal history of venous thrombosis and embolism V12.51 Active Problem Anticoagulation therapy V58.61 Active Problem Congestive heart failure, unspecified 428.0 Active Problem Coronary atherosclerosis of [place] coronary artery 414.01 Active Problem Diabetes Mellitus Type 2, not stated as uncontrolled 250.00 Active Assessment Need for prophylactic vaccination and inoculation, Influenza V04.81 Active Problem Mixed hyperlipidemia 272.2 Active Problem COPD 496 Active Problem Diabetes mellitus without mention of complication, type II or unspecified type, uncontrolled 250.02 Active Medications Medication Code System Code Instructions Start Date End Date Status Dosage Metoprolol Tartrate [facility] [address]-66 25 MG Orally Twice a day 1 tablet Potassium Bicarb-Citric Acid [facility] [address]-22 20 MEQ Orally Once a day 1 tablet Lantus SoloStar [facility] [address]-35 100 UNIT/ML Subcutaneous Once a day Nov 19, 2014 15 units Budesonide [facility] [address]-04 Inhalation Twice a day not defined Metformin HCl [facility] [address]-12 500 MG Orally Twice a day February 18, 2014 1 tablet with meals ProAir HFA [facility] [address]-93 108 (90 Base) MCG/ACT Inhalation every 4 hrs February 11, 2015 2 puffs as needed Warfarin Sodium [facility] [address]-09 5MG Orally as directed take 1 tablet every day exept Wed take 1.5 tablets for a dose of 7.5mg GlyBURIDE [facility] [address]-10 10 mg Orally Once a day TAKE ONE TABLET BY MOUTH ONCE DAILY Atorvastatin Calcium [facility] [address]-98 40 MG Orally Once a day 1 tablet Albuterol Sulfate [facility] [address]-45 1.25 MG/3ML Inhalation qid Oct 12, 2014 3 ml as needed Ventolin HFA [facility] [address]-51 108 (90 Base) MCG/ACT Inhalation every 4 hrs Oct 23, 2013 2 puffs as needed Procedures Procedure Coding System Code Date ADMINISTRATION, 1ST IMMUNIZATION CPT-4 06441 Jul 27, 2015 DUMMY CODE FOR NURSE VISIT CPT-4 DUMMY Jul 27, 2015 FLU VACCINE NO PRESERV 3 & > CPT-4 82055 Jul 27, 2015 Results No Known Results Immunizations Vaccine Administration Date Influenza shot 3 y.o. and older Jul 27, 2015 Summary Purpose eClinicalWorks Submission
--- OUTSIDE RECORDS SUMMARY | 2016-11-27 22:03 | XMS REPORT ---
Author Author Lynne Lanier Organization [employer] Address Unknown Phone Unavailable Care Team Providers Care Semiconductor Testing Group Leader Name Role Phone Lynne Lanier CP Unavailable [...] Coronary atherosclerosis of unspecified type of vessel, [place] or graft 414.00 Active Problem Coronary atherosclerosis of [place] coronary artery 414.01 Active Problem Personal history of venous thrombosis and embolism V12.51 Active Problem Congestive heart failure, unspecified 428.0 Active Problem Tobacco abuse V15.82 Active Problem Diabetes Mellitus Type 2, not stated as uncontrolled 250.00 Active Problem Anticoagulation therapy V58.61 Active Medications No Known Medications Results No Known Results Summary Purpose [employer]ClinicalWorks Submission
--- OUTSIDE RECORDS SUMMARY | 2016-11-27 22:03 | XMS REPORT ---
Author Author Lynne Lanier Organization [employer] Address Unknown Phone Unavailable Care Team Providers Care Salvage Inspector [employer] Name Role Phone Lynne Lanier CP Unavailable Allergies No Known Allergies Problems Problem Type Condition ICD-9 Code Onset Dates Condition Status Problem Acute venous embolism and thrombosis of unspecified deep vessels of lower extremity 453.40 Active Problem Tobacco abuse V15.82 Active Problem Impotence of organic origin 607.84 Active Problem Coronary atherosclerosis of unspecified type of vessel, [place] or graft 414.00 Active Problem Coronary atherosclerosis of [place] coronary artery 414.01 Active Problem Personal history of venous thrombosis and embolism V12.51 Active Problem Anticoagulation therapy V58.61 Active Problem Congestive heart failure, unspecified 428.0 Active Problem Coronary atherosclerosis of [place] coronary artery 414.01 Active Problem Diabetes Mellitus Type 2, not stated as uncontrolled 250.00 Active Problem Mixed hyperlipidemia 272.2 Active Problem COPD 496 Active Problem Diabetes mellitus without mention of complication, type II or unspecified type, uncontrolled 250.02 Active Medications No Known Medications Results No Known Results Summary Purpose [employer] Submission
--- OUTSIDE RECORDS SUMMARY | 2016-11-27 22:03 | XMS REPORT ---
Author Author Lynne Lanier Organization [employer] Address Unknown Phone Unavailable Care Team Providers Care Title Insurance Sales Representative Name Role Phone Lynne Lanier CP Unavailable Allergies No Known Allergies Problems Problem Type Condition ICD-9 Code Onset Dates Condition Status Problem Acute venous embolism and thrombosis of unspecified deep vessels of lower extremity 453.40 Active Problem Tobacco abuse V15.82 Active Problem Impotence of organic origin 607.84 Active Problem Coronary atherosclerosis of unspecified type of vessel, [place] or graft 414.00 Active Problem Coronary atherosclerosis of [place] coronary artery 414.01 Active Problem Personal history of venous thrombosis and embolism V12.51 Active Problem Anticoagulation therapy V58.61 Active Problem Congestive heart failure, unspecified 428.0 Active Problem Coronary atherosclerosis of [place] coronary artery 414.01 Active Problem Diabetes Mellitus Type 2, not stated as uncontrolled 250.00 Active Assessment Diabetes Mellitus Type 2, not stated as uncontrolled 250.00 Active Problem Mixed hyperlipidemia 272.2 Active Problem COPD 496 Active Problem Diabetes mellitus without mention of complication, type II or unspecified type, uncontrolled 250.02 Active Medications Medication Code System Code Instructions Start Date End Date Status Dosage GlyBURIDE [facility] [place] [address]-03 10 mg Orally Once a day TAKE ONE TABLET BY MOUTH ONCE DAILY Results No Known Results Summary Purpose [employer]ClinicalWorks Submission
[2016-11-27 22:04] VITALS: BP 130/96; PULSE 109; RESP 28; TEMP 99.8; O2SAT 95
--- OUTSIDE RECORDS SUMMARY | 2016-11-27 22:04 | XMS REPORT ---
Author Author Carisa Pastor [facility] eClinicalWorks Address Unknown Phone Unavailable Care Team Providers Care Director Nicu Name Role Phone Carisa Pastor CP Unavailable Allergies, Adverse Reactions, Alerts Substance Reaction Event Type Penicillin fever Drug Allergy Percocet vomiting Drug Allergy Problems Problem Type Condition Code Onset Dates Condition Status Problem Impotence of organic origin 607.84 Active Problem Congestive heart failure, unspecified 428.0 Active Problem Tobacco abuse V15.82 Active Problem Personal history of venous thrombosis and embolism V12.51 Active Problem Coronary atherosclerosis of unspecified type of vessel, [place] or graft 414.00 Active Problem Type 2 diabetes mellitus with hyperglycemia E11.65 Active Problem Diabetes Mellitus Type 2, not stated as uncontrolled 250.00 Active Problem Anticoagulation therapy V58.61 Active Problem Coronary atherosclerosis of [place] coronary artery 414.01 Active Problem Coronary atherosclerosis of [place] coronary artery 414.01 Active Problem Mixed hyperlipidemia 272.2 Active Problem COPD 496 Active Problem Diabetes mellitus without mention of complication, type II or unspecified type, uncontrolled 250.02 Active Assessment Type 2 diabetes mellitus with hyperglycemia E11.65 Active Problem Acute venous embolism and thrombosis of unspecified deep vessels of lower extremity 453.40 Active Medications Medication Code System Code Instructions Start Date End Date Status Dosage Ventolin HFA [facility] [address]-80 108 (90 Base) MCG/ACT Inhalation every 4 hrs Oct 23, 2013 2 puffs as needed ProAir HFA [facility] [address]-63 108 (90 Base) MCG/ACT Inhalation every 4 hrs February 11, 2015 2 puffs as needed Metoprolol Tartrate [facility] [address]-96 25 MG Orally Twice a day 1 tablet Humalog KwikPen [facility] [address]-38 200 UNIT/ML Subcutaneous 3x per day Nov 16, 2015 5 units with meals 3x/day Bumetanide [facility] [address]-38 1 MG Orally Twice every day Aug 23, 2015 1 tablet Budesonide [facility] [address]-63 Inhalation Twice a day not defined Atorvastatin Calcium [facility] [address]-82 40 MG Orally Once a day 1 tablet GlyBURIDE [facility] 95317097264 5 MG Orally Once a day TAKE 2 TABLET BY MOUTH ONCE DAILY Metformin HCl [facility] [address]-21 500 MG Orally Twice a day February 18, 2014 2 tablets with meals Warfarin Sodium [facility] [address]-64 5MG Orally as directed take 1 tablet daily except saturday, saturday, saturday take 1.5 tablets Albuterol Sulfate [facility] [address]-57 1.25 MG/3ML Inhalation qid Oct 12, 2014 3 ml as needed Lantus SoloStar [facility] [address]-17 100 UNIT/ML Subcutaneous Once a day Nov 19, 2014 20 units Potassium Bicarb-Citric Acid [facility] [address]-64 20 MEQ Orally Once a day 1 tablet Procedures Procedure Coding System Code Date OFFICE VISIT, EST-LOW COMPLEXITY (15 MIN.) CPT-4 35446 Nov 16, 2015 Vital Signs Date/Time: Nov 16, 2015 Height 71.5 in Weight 204.8 lbs Temperature 98.2 F Blood Pressure Diastolic 65 mm Hg Blood Pressure Systolic 102 mm Hg Cardiac Monitoring Heart Rate 50 /min BMI 28.16 Index Respiratory Rate 16 /min Results No Known Results Summary Purpose [employer]ClinicalWorks Submission
--- OUTSIDE RECORDS SUMMARY | 2016-11-27 22:04 | XMS REPORT ---
Author Author Lynne Lanier Organization [employer] Address Unknown Phone Unavailable Care Team Providers Care Switch Foreman Name Role Phone Lynne Lanier CP Unavailable Allergies No Known Allergies Problems Problem Type Condition ICD-9 Code Onset Dates Condition Status Problem Acute venous embolism and thrombosis of unspecified deep vessels of lower extremity 453.40 Active Problem Tobacco abuse V15.82 Active Problem Impotence of organic origin 607.84 Active Problem Coronary atherosclerosis of unspecified type of vessel, [place] or graft 414.00 Active Problem Coronary atherosclerosis of [place] coronary artery 414.01 Active Problem Personal history of venous thrombosis and embolism V12.51 Active Problem Anticoagulation therapy V58.61 Active Problem Congestive heart failure, unspecified 428.0 Active Problem Coronary atherosclerosis of [place] coronary artery 414.01 Active Problem Diabetes Mellitus Type 2, not stated as uncontrolled 250.00 Active Assessment Acute venous embolism and thrombosis of unspecified deep vessels of lower extremity 453.40 Active Problem Mixed hyperlipidemia 272.2 Active Problem COPD 496 Active Problem Diabetes mellitus without mention of complication, type II or unspecified type, uncontrolled 250.02 Active Medications Medication Code System Code Instructions Start Date End Date Status Dosage Budesonide [facility] [address]-99 Inhalation Twice a day not defined Ventolin HFA [facility] [address]-88 108 (90 Base) MCG/ACT Inhalation every 4 hrs Oct 23, 2013 2 puffs as needed Atorvastatin Calcium [facility] [address]-33 40 MG Orally Once a day 1 tablet Lantus SoloStar [facility] [address]-24 100 UNIT/ML Subcutaneous Once a day Nov 19, 2014 15 units ProAir HFA [facility] [address]-85 108 (90 Base) MCG/ACT Inhalation every 4 hrs February 11, 2015 2 puffs as needed Metoprolol Tartrate [facility] [address]-22 25 MG Orally Twice a day 1 tablet Metformin HCl [facility] [address]-24 500 MG Orally Twice a day February 18, 2014 1 tablet with meals Warfarin Sodium [facility] [address]-14 5MG Orally as directed take 1 tablet every day exept Wed take 1.5 tablets for a dose of 7.5mg GlyBURIDE [facility] [address]-65 10 mg Orally Once a day TAKE ONE TABLET BY MOUTH ONCE DAILY Potassium Bicarb-Citric Acid [facility] [address]-73 20 MEQ Orally Once a day 1 tablet Albuterol Sulfate [facility] [address]-76 1.25 MG/3ML Inhalation qid Oct 12, 2014 3 ml as needed Procedures Procedure Coding System Code Date PROTIME INR, IN HOUSE CPT-4 19637 Jul 27, 2015 Results No Known Results Summary Purpose [employer]ClinicalWorks Submission
--- OUTSIDE RECORDS SUMMARY | 2016-11-27 22:04 | XMS REPORT ---
Author Author Moreno León Organization [employer]ClinicalWorks Address Unknown Phone Unavailable Care Team Providers Care School Occupational Therapist Name Role Phone Moreno León CP Unavailable Allergies No Known Allergies Problems Problem Type Condition Code Onset Dates Condition Status Problem Acute venous embolism and thrombosis of unspecified deep vessels of lower extremity 453.40 Active Problem Tobacco abuse V15.82 Active Problem Impotence of organic origin 607.84 Active Problem Coronary atherosclerosis of unspecified type of vessel, [place] or graft 414.00 Active Problem Coronary atherosclerosis of [place] coronary artery 414.01 Active Problem Personal history of venous thrombosis and embolism V12.51 Active Problem Anticoagulation therapy V58.61 Active Problem Congestive heart failure, unspecified 428.0 Active Problem Coronary atherosclerosis of [place] coronary artery 414.01 Active Problem Diabetes Mellitus Type 2, not stated as uncontrolled 250.00 Active Problem Mixed hyperlipidemia 272.2 Active Problem COPD 496 Active Problem Diabetes mellitus without mention of complication, type II or unspecified type, uncontrolled 250.02 Active Medications Medication Code System Code Instructions Start Date End Date Status Dosage Metformin HCl [facility] [address]-46 500 MG Orally Twice a day February 18, 2014 1 tablet with meals Results No Known Results Summary Purpose eClinicalWorks Submission
--- OUTSIDE RECORDS SUMMARY | 2016-11-27 22:04 | XMS REPORT ---
Author Author Lynne Lanier Organization [employer] Address Unknown Phone Unavailable Care Team Providers Care Tire Beader Maker Name Role Phone Lynne Lanier CP Unavailable Allergies No Known Allergies Problems Problem Type Condition ICD-9 Code Onset Dates Condition Status Problem Mixed hyperlipidemia 272.2 Active Problem Congestive heart failure, unspecified 428.0 Active Problem Tobacco abuse V15.82 Active Problem Anticoagulation therapy V58.61 Active Problem Diabetes mellitus without mention of complication, type II or unspecified type, uncontrolled 250.02 Active Problem COPD 496 Active Problem Impotence of organic origin 607.84 Active Problem Acute venous embolism and thrombosis of unspecified deep vessels of lower extremity 453.40 Active Medications No Known Medications Results No Known Results Summary Purpose [employer] Submission
--- OUTSIDE RECORDS SUMMARY | 2016-11-27 22:04 | XMS REPORT ---
Author Author Lynne Lanier Organization [employer] Address Unknown Phone Unavailable Care Team Providers Care Environmental Science Technician Name Role Phone Lynne Lanier CP [...] Start Date End Date Status Dosage Lasix [facility] [address]-30 20 MG Orally Once a day Oct [...]
--- OUTSIDE RECORDS SUMMARY | 2016-11-27 22:04 | XMS REPORT ---
Author Author Carisa Pastor Organization [employer] Address Unknown Phone Unavailable Care Team Providers Care Merchandise Coordinator Name Role Phone Carisa Pastor CP Unavailable Allergies No Known Allergies Problems Problem Type Condition Code Onset Dates Condition Status Problem Acute venous embolism and thrombosis of unspecified deep vessels of lower extremity 453.40 Active Problem Tobacco abuse V15.82 Active Problem Impotence of organic origin 607.84 Active Problem Coronary atherosclerosis of unspecified type of vessel, [place] or graft 414.00 Active Problem Coronary atherosclerosis of [place] coronary artery 414.01 Active Problem Personal history of venous thrombosis and embolism V12.51 Active Problem Anticoagulation therapy V58.61 Active Problem Congestive heart failure, unspecified 428.0 Active Problem Coronary atherosclerosis of [place] coronary artery 414.01 Active Problem Diabetes Mellitus Type 2, not stated as uncontrolled 250.00 Active Problem Mixed hyperlipidemia 272.2 Active Problem COPD 496 Active Problem Diabetes mellitus without mention of complication, type II or unspecified type, uncontrolled 250.02 Active Medications No Known Medications Results No Known Results Summary Purpose [employer] Submission
--- OUTSIDE RECORDS SUMMARY | 2016-11-27 22:04 | XMS REPORT ---
Author Author Carisa Pastor [facility] eClinicalWorks Address Unknown Phone Unavailable Care Team Providers Care Science Analyst Name Role Phone Carisa Pastor CP Unavailable [...] exacerbation J44.1 Active Problem Coronary atherosclerosis of [place] coronary artery 414.01 Active Problem Diabetes Mellitus Type 2, not stated as uncontrolled 250.00 Active Problem Coronary atherosclerosis of unspecified type of vessel, [place] or graft 414.00 Active Problem Coronary atherosclerosis of [place] coronary artery 414.01 Active Assessment Mixed hyperlipidemia E78.2 Active Assessment Acute thromboembolism of deep veins of lower extremity I82.409 Active Problem COPD 496 Active Problem Diabetes mellitus without mention of complication, type II or unspecified type, uncontrolled 250.02 Active Assessment Type 2 diabetes mellitus with hyperglycemia E11.65 Active Problem Acute thromboembolism of deep veins of lower extremity I82.409 Active Problem Mixed hyperlipidemia E78.2 Active Problem Impotence of organic origin 607.84 Active Medications Medication Code System Code Instructions Start Date End Date Status Dosage GlyBURIDE [facility] 85493596118 5 MG Orally Once a day TAKE 2 TABLET BY MOUTH ONCE DAILY ProAir HFA [facility] [address]-48 108 (90 Base) MCG/ACT Inhalation every 4 hrs May 22, 2016 2 puffs as needed Dulera [facility] [address]-85 100-5 MCG/ACT Inhalation May 22, 2016 as directed pravastatin [facility] [address]-36 20 mg oral 1 per day May 22, 2016 as directed Metformin HCl [facility] 14527905749 500 MG Orally Twice a day 2 tablets with meals; needs appt before next refill. Albuterol Sulfate [facility] [address]-19 1.25 MG/3ML Inhalation qid Oct 12, 2014 3 ml as needed Warfarin Sodium [facility] [address]-49 5MG Orally as directed take 1 tablet daily except saturday, saturday, saturday take 1.5 tablets Bumetanide [facility] [address]-32 1 MG Orally Twice every day Aug 23, 2015 1 tablet Bystolic [facility] [address]-80 5 MG Orally Once a day May 22, 2016 1 tablet Procedures Procedure Coding System Code Date PTT- PT/PTT CPT-4 22091 May 22, 2016 PT- PT/PTT CPT-4 68670 May 22, 2016 COMPLETE CBC W/AUTO DIFF WBC CPT-4 30445 May 22, 2016 PROTIME INR, IN HOUSE CPT-4 98116 May 22, 2016 IH LIPID PANEL CPT-4 68272 May 22, 2016 IH CMP CPT-4 61067 May 22, 2016 Results Name Result Date Reference Range Unit Abnormality Flag In House Lipid Panel ----Triglycerides 108 [id number] ----nHDLc 154 28888281 ----Chol/HDL Ratio 4.3 20160523 ----LDL 132 86498752 ----VLDL 22 58167057 ----Cholesterol 199 88434933 ----HDL 46 13951297 In [place] CMP ----Total Protein 7.0 28979367 6.4 - 8.1 G/DL ----EGFR >60 20160522 ----Alkaline Phosphatase 38* 20160522 53 - 128 u/L ----Creatinine 1.0 59305134 0.6 - 1.2 mg/DL ----BUN 18 20160522 7 - 22 mg/DL ----Calcium 9.3 62774750 8.0 - 10.3 mg/DL ----Glucose 258* 18619683 73 - 118 mg/DL ----AST 26 85248558 11 - 38 u/L ----ALT 32 20160522 10 - 47 u/L ----Albumin 3.8 68763337 3.3 - 5.5 g/DL ----Total Bilirubin 0.9 69308787 0.2 - 1.6 mg/DL ----Sodium 145* 76574520 128 - 145 mmol/L ----Potassium 4.9 10494957 3.6 - 5.1 mmol/L ----CO2 27 44969534 18 - 33 mmol/L ----Chloride 107 32245037 98 - 108 mmol/L CBC With Platelet and Differential ----MCHC 33.9 88499597 32.0-36.0 g/dL ----MCH 30.9 36305616 27.0-32.0 pg ----MPV 10.2 55826135 8.8-14.8 fL ----RDW 14.6 24550507 11.5-14.5 % H ----Eosinophils 2 21658894 0-4 % ----Basophils 0 41370422 0-2 % ----Immature Granulocytes 0.4 40945127 0.0-1.0 % ----Absolute Neutrophils 2.72 58953985 1.90-7.00 10*3 ----Platelet Count 146 89743515 150-400 K/uL L ----Absolute Eosinophils 0.10 83103505 0.00-0.50 10*3 ----HCT 40.7 60019364 42.0-52.0 % L ----Absolute Basophils 0.02 04706073 0.00-0.20 10*3 ----MCV 91.3 88208263 82.0-99.0 fL ----RBC 4.46 98253251 4.60-6.20 10*6/uL L ----Absolute Lymphocytes 1.29 87459296 0.80-3.30 10*3 ----Absolute Monocytes 0.74 84470995 0.30-1.00 10*3 ----HGB 13.8 55712934 14.0-18.0 g/dL L ----Monocytes 15 69108389 4-11 % H ----WBC 4.9 32305464 4.8-10.8 K/uL ----Neutrophils 56 26505269 51-75 % ----Lymphocytes 26 69187689 20-46 % Summary Purpose eClinicalWorks Submission
--- OUTSIDE RECORDS SUMMARY | 2016-11-27 22:04 | XMS REPORT | Referral Summary ---
Author Author [facility] Organization [facility] Address Unknown Phone Unavailable Care Team Providers Care Black Powder Glazing Operator Name Role Phone Salma Lanier Primary Care Physician [phone] Encounter [facility] [id number] Date(s): 05/05/15 - 05/09/15 [facility] [address] [place] [address] [phone] Final: Hypertensive heart and chronic kidney disease, unspecified, with heart failure and with chronic kidney disease stage I through stage IV, or unspecified Final: ACUTE ON CHRONIC SYSTOLIC HEART FAILURE Final: Acute Kidney Failure, Unspecified Final: PERSONAL HISTORY OF NONCOMPLIANCE WITH MEDICAL TREATMENT, PRESENTING HAZARDS TO HEALTH Final: ACUTE MYOCARDIAL INFARCTION, UNSPECIFIED SITE, INITIAL EPISODE OF CARE Final: CONGESTIVE HEART FAILURE, UNSPECIFIED Final: CORONARY ATHEROSCLEROSIS OF UNSPECIFIED TYPE OF VESSEL, MESA GRANDE OR GRAFT Final: RETENTION OF URINE, UNSPECIFIED Final: HYPOPOTASSEMIA Final: Diabetes mellitus without mention of complication, type II or unspecified type, not stated as uncontrolled Final: OTHER AND UNSPECIFIED HYPERLIPIDEMIA Final: Chronic kidney disease, unspecified Final: Unspecified viral hepatitis C without hepatic coma Final: POSTSURGICAL AORTOCORONARY BYPASS STATUS Final: AUTOMATIC IMPLANTABLE CARDIAC DEFIBRILLATOR IN SITU Discharge Disposition: 01-Home or Self Care Attending Physician: Navarro Conn MD Admitting Physician: Navarro Conn MD Vital Signs Most recent to 1 oldest [Reference Range]: Temperature Axillary 35.9 degC [35.2-36.7 degC] (05/08/15 8:53 PM) Temperature Oral 36.5 degC [35.8-37.3 degC] (05/09/15 8:00 AM) Peripheral Pulse 100 bpm Rate [60-100 bpm] (05/09/15 10:22 AM) Respiratory Rate 18 br/min [14-20 br/min] (05/09/15 8:00 AM) Blood Pressure 121/88 mmHg [90-140/60-90 mmHg] (05/09/15 10:22 AM) SpO2 90 % (05/09/15 8:00 AM) Problem List Condition Effective Dates Status Health Status Informant Acute Active pain(Confirmed) At risk for Active injury(Confirmed)1 At risk for unstable Active blood glucose level(Confirmed)2 At risk of pressure Active sore(Confirmed) Cardiac Active disorder(Confirmed)3 Fluid Active imbalance(Confirmed) 4 Impaired gas Active exchange(Confirmed)5 Impaired skin Active integrity(Confirmed) 6 Ineffective airway Active clearance(Confirmed) 7 Knowledge Active deficit(Confirmed)8 Methicillin Active resistant Staphylococcus aureus(Confirmed)9 Obesity(Confirmed) Active patient Tissue perfusion Active alteration(Confirmed )10 Urinary Active retention(Confirmed) 11 1Problem added automatically by system based on initiation of Risk for Injury Plan of Care 2Problem added automatically by system based on initiation of At Risk for Unstable Blood Glucose Plan of Care 3Problem added automatically by system based on initiation of Cardiac Output/ Ineffective Cardiac Perfusion Plan of Care 4Problem added automatically by system based on initiation of Fluid Volume Imbalance Plan of Care 5Problem added automatically by system based on initiation of Impaired Gas Exchange Plan of Care 6Problem added automatically by system based on initiation of Impaired Skin Integrity Plan of Care 7Problem added automatically by system based on initiation of Ineffective Airway Clearance Plan of Care 8Problem added automatically by system based on initiation of Knowledge Deficit Plan of Care 9Sputum from NOT FOUND collected 01/12/15 13:36:00 CDT 10Problem added automatically by system based on initiation of Tissue Perfusion Cerebral Plan of Care 11Problem added automatically by system based on initiation of Urinary Retention Plan of Care Allergies, Adverse Reactions, Alerts Substance Reaction Severity Status doxycycline Active oxytetracycline Active penicillin Adverse Reaction Active Medications aspirin 81 mg oral delayed release tablet 81 mg 1 tabs, Oral, Daily, 0 Refill(s) Start Date: 05/09/15 Status: Ordered atorvastatin 40 mg oral tablet 40 mg 1 tabs, Oral, Bedtime (once a day), 0 Refill(s) Start Date: 05/05/15 Status: Ordered bumetanide 1 mg oral tablet 1 mg 1 tabs, Oral, BID, 0 Refill(s) Start Date: 05/05/15 Status: Ordered glyBURIDE 5 mg oral tablet 5 mg 1 tabs, Oral, Daily, 0 Refill(s) Start Date: 05/05/15 Status: Ordered ipratropium-albuterol 0.5 mg-2.5 mg/3 mLinhalation solution 3 mL, Inhalation, QID, 0 Refill(s) Start Date: 05/05/15 Status: Ordered Klor-Con M20 oral tablet, extended release 20 mEq 1 tabs, Oral, Daily, 0 Refill(s) Start Date: 05/05/15 Status: Ordered lisinopril 2.5 mg oral tablet 2.5 mg 1 tabs, Oral, Bedtime (once a day), 0 Refill(s) Start Date: 05/05/15 Status: Ordered metFORMIN 500 mg oral tablet 500 mg 1 tabs, Oral, BIDAC, 0 Refill(s) Start Date: 05/05/15 Status: Ordered Metoprolol Tartrate 25 mg oral tablet 25 mg 1 tabs, Oral, BID, 0 Refill(s) Start Date: 05/05/15 Status: Ordered minocycline 100 mg oral capsule 100 mg 1 caps, Oral, BID, 0 Refill(s) Start Date: 05/05/15 Status: Ordered oxyCODONE-acetaminophen 5 mg-325 mg oral tablet range dose 1 tabs, Oral, q4hr, Pain Mild (1-3), every 4 to 6 hours, 0 Refill(s) Start Date: 05/05/15 Status: Ordered spironolactone 25 mg oral tablet 25 mg 1 tabs, Oral, Daily, 0 Refill(s) Start Date: 05/05/15 Status: Ordered Results Hematology Most recent to 1 oldest [Reference Range]: WBC [4.8-10.8 4.8 10*3/uL 10*3/uL] (05/06/15 8:07 AM) RBC [4.60-6.20 4.40 10*6/uL 10*6/uL] *LOW* (05/06/15 8:07 AM) Hgb [14.0-18.0 12.5 gm/dL gm/dL] *LOW* (05/06/15 8:07 AM) Hct [42.0-52.0 %] 39.4 % *LOW* (05/06/15 8:07 AM) MCV [82.0-99.0 fL] 89.5 fL (05/06/15 8:07 AM) MCH [27.0-32.0 pg] 28.4 pg (05/06/15 8:07 AM) MCHC [32.0-36.0 31.7 gm/dL gm/dL] *LOW* (05/06/15 8:07 AM) RDW [11.5-14.5 %] 17.1 % *HI* (05/06/15 8:07 AM) Platelet [150-400 139 10*3/uL 10*3/uL] *LOW* (05/06/15 8:07 AM) MPV [9.4-12.3 fL] 10.4 fL (05/06/15 8:07 AM) Coagulation Most recent to 1 oldest [Reference Range]: INR [0.9-1.2] 1.8 *HI* (05/06/15 8:07 AM) Chemistry Most recent to 1 oldest [Reference Range]: Sodium Lvl [136-144 142 mEq/L mEq/L] (05/09/15 5:44 AM) Potassium Lvl 3.7 mEq/L [3.6-5.1 mEq/L] (05/09/15 5:44 AM) Chloride [99-109 99 mEq/L mEq/L] (05/09/15 5:44 AM) CO2 [22-32 mEq/L] 37 mEq/L *HI* (05/09/15 5:44 AM) AGAP [3-20] 6 (05/09/15 5:44 AM) BUN [4-20 mg/dL] 29 mg/dL *HI* (05/09/15 5:44 AM) Glucose Lvl [70-100 149 mg/dL mg/dL] *HI* (05/09/15 5:44 AM) Creatinine Lvl 1.06 mg/dL [0.64-1.27 mg/dL] (05/09/15 5:44 AM) eGFR [>60] >60 1 (05/09/15 5:44 AM) Calcium Lvl 8.8 mg/dL [8.6-10.0 mg/dL] (05/09/15 5:44 AM) Albumin Lvl [3.5-4.8 3.4 gm/dL gm/dL] *LOW* (05/05/15 6:59 AM) Total Protein 6.9 gm/dL [6.1-7.9 gm/dL] (05/05/15 6:59 AM) Globulin [1.9-4.3 3.5 gm/dL gm/dL] (05/05/15 6:59 AM) ALT [17-63 U/L] 523 U/L *HI* (05/05/15 6:59 AM) AST [15-41 U/L] 496 U/L *HI* (05/05/15 6:59 AM) Alk Phos [26-104 55 U/L U/L] (05/05/15 6:59 AM) Bili Total [0.2-1.2 2.7 mg/dL 2 mg/dL] *HI* (05/05/15 6:59 AM) GGT [7-50 U/L] 70 U/L *HI* (05/05/15 6:59 AM) Magnesium Lvl 2.1 mg/dL [1.8-2.5 mg/dL] (05/05/15 6:59 AM) BNP [0-99 pg/mL] 2924 pg/mL *HI* (05/05/15 6:59 AM) Troponin [<0.06 0.07 ng/mL 3 ng/mL] *HHI* (05/05/15 6:38 PM) Blood Glucose, 134 mg/dL Capillary [70-100 *HI* mg/dL] (05/09/15 5:44 AM) Hep A IgM Negative (05/05/15 6:59 AM) Hep Bs Ag Negative (05/05/15 6:59 AM) Hep C Ab Positive 4 *ABN* (05/05/15 6:59 AM) Hep B Core IgM Negative (05/05/15 6:59 AM) TSH with Reflex Free 2.40 T4 [0.35-5.50] (05/05/15 6:59 AM) 1Result Comment: Multiply eGFR results by 1.21 for race. 2Result Comment: Naproxen, specifically the metabolite O-desmethylnaproxen, may cause spurious elevation in Total Bilirubin levels. 3Result Comment: Critical value called, and read-back verified. Called to Christin Trevino RN (5SE) 05/05/2015 19:16 4Result Comment: If clinically indicated, Positive HCV EIA results may be confirmed by Hepatitis C RNA PCR. Urinalysis Most recent to 1 oldest [Reference Range]: UA Color Dk Yellow (05/05/15 6:39 AM) UA Appear Clear (05/05/15 6:39 AM) UA pH [5.0-8.0] 5.0 (05/05/15 6:39 AM) UA Leuk Est Negative [Negative] (05/05/15 6:39 AM) UA Nitrite Negative [Negative] (05/05/15 6:39 AM) UA Protein Trace [Negative] *ABN* (05/05/15 6:39 AM) UA Glucose Negative [Negative] (05/05/15 6:39 AM) UA Ketones Trace [Negative] *ABN* (05/05/15 6:39 AM) UA Urobilinogen 1.0 mg/dL [<1.0 mg/dL] (05/05/15 6:39 AM) UA Bili [Negative] Negative (05/05/15 6:39 AM) UA Blood [Negative] Negative (05/05/15 6:39 AM) UA Spec Grav 1.015 [1.003-1.030] (05/05/15 6:39 AM) Type Gan (05/05/15 6:39 AM) Microbiology Reports TEST: Sputum Culture and Smear STATUS: Auth (Verified) BODY SITE: SOURCE: Sputum COLLECTED DATE/TIME: 05/05/15 10:05 PM Sputum Culture and Smear Normal alex isolated, moderate amount TEST: Blood Culture STATUS: Auth (Verified) BODY SITE: SOURCE: Blood COLLECTED DATE/TIME: 05/05/15 7:06 AM Blood Culture No growth after 5 days of incubation. TEST: Blood Culture STATUS: Auth (Verified) BODY SITE: SOURCE: Blood COLLECTED DATE/TIME: 05/05/15 6:59 AM Blood Culture No growth after 5 days of incubation. Immunizations No data available for this section Procedures Procedure Date Related Diagnosis Body Site Bypass Graft Coronary Artery1 01/14/15 [place] Vein Endoscopic (Right)2 01/14/15 Pacemaker 1auto-populated from documented surgical case 2auto-populated from documented surgical case Social History Social History Type Response Smoking Status Former smoker Assessment and Plan No data available for this section
--- OUTSIDE RECORDS SUMMARY | 2016-11-27 22:04 | XMS REPORT ---
Author Author Lynne Lanier Organization e[employer] Address Unknown Phone Unavailable Care Team Providers Care Health And Safety Instructor Name Role Phone Lynne Lanier CP Unavailable Allergies No Known Allergies Problems Problem Type Condition Code Onset Dates Condition Status Problem Mixed hyperlipidemia 272.2 Active Problem Diabetes mellitus without mention of complication, type II or unspecified type, uncontrolled 250.02 Active Problem COPD 496 Active Problem Diabetes Mellitus Type 2, not stated as uncontrolled 250.00 Active Problem Anticoagulation therapy V58.61 Active Problem Coronary atherosclerosis of [place] coronary artery 414.01 Active Problem Impotence of organic origin 607.84 Active Problem Acute venous embolism and thrombosis of unspecified deep vessels of lower extremity 453.40 Active Problem Congestive heart failure, unspecified 428.0 Active Problem Tobacco abuse V15.82 Active Medications No Known Medications Results No Known Results Summary Purpose eClinicalWorks Submission
--- OUTSIDE RECORDS SUMMARY | 2016-11-27 22:04 | XMS REPORT ---
Author Author Lynne Lanier Organization [employer] Address Unknown Phone Unavailable Care Team Providers Care Fruit Packer Name Role Phone Lynne Lanier CP Unavailable [...] Date End Date Status Dosage Warfarin Sodium [facility] [address]-78 5MG Orally Once daily 1 tablet Results No Known Results Summary Purpose eClinicalWorks Submission
--- OUTSIDE RECORDS SUMMARY | 2016-11-27 22:04 | XMS REPORT ---
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 Active Problem Acute venous embolism and thrombosis of unspecified deep vessels of lower extremity 453.40 Active Problem Congestive heart failure, unspecified 428.0 Active Problem Tobacco abuse V15.82 Active Assessment Swelling of limb 729.81 Active Assessment Seroma complicating a procedure 998.13 Active Assessment Personal history of venous thrombosis and embolism V12.51 Active Assessment Anticoagulation therapy V58.61 Active Assessment Mixed hyperlipidemia 272.2 Active Assessment Diabetes Mellitus Type 2, not stated as uncontrolled 250.00 Active Assessment Orthostatic hypotension 458.0 Active Assessment Congestive heart failure, unspecified 428.0 Active Assessment COPD 496 Active Assessment Coronary atherosclerosis of [place] coronary artery 414.01 Active Medications Medication Code System Code Instructions Start Date End Date Status Dosage GlyBURIDE [facility] [address]-93 5MG Orally Once a day TAKE ONE TABLET BY MOUTH ONCE DAILY Warfarin Sodium [facility] [address]-18 5MG Orally Once daily 1 tablet Lasix [facility] [address]-45 20 MG Orally one tab in AM and one-half tablet at noon Oct 11, 2014 1 tablet Metformin HCl [facility] [address]-55 500 MG Orally Twice a day February 18, 2014 1 tablet with meals Albuterol Sulfate [facility] [address]-28 1.25 MG/3ML Inhalation qid Oct 12, 2014 3 ml as needed Ventolin HFA [facility] [address]-99 108 (90 Base) MCG/ACT Inhalation every 4 hrs Oct 23, 2013 2 puffs as needed Lantus SoloStar [facility] [address]-11 100 UNIT/ML Subcutaneous Once a day Nov 19, 2014 15 units Benadryl [facility] [address]-52 25 MG Orally takesp in am 4 ca 1 capsule as needed Levaquin [facility] [address]-72 250 MG Orally Once a day 1 tablet Procedures Procedure Coding System Code Date PROTIME INR, IN HOUSE CPT-4 90383 February 02, 2015 OFFICE VISIT, EST-MOD. COMPLEXITY (25 MIN) CPT-4 67834 February 02, 2015 COMPLETE CBC W/AUTO DIFF WBC CPT-4 31542 February 02, 2015 IH CMP CPT-4 16934 February 02, 2015 Vital Signs Date/Time: February 02, 2015 Height 71.5 in Weight 204.8 lbs Temperature 98.2 F Blood Pressure Diastolic 60 mm Hg Blood Pressure Systolic 94 mm Hg Cardiac Monitoring Heart Rate 84 /min BMI 28.16 Index Respiratory Rate 20 /min Results No Known Results Summary Purpose eClinicalWorks Submission
--- OUTSIDE RECORDS SUMMARY | 2016-11-27 22:04 | XMS REPORT ---
Author Author Lynne Lanier Organization [employer] Address Unknown Phone Unavailable Care Team Providers Care Supplier Engineer Name Role Phone Lynne Lanier CP Unavailable Allergies, Adverse Reactions, Alerts Substance Reaction Event Type Penicillin fever Drug Allergy Problems Problem Type Condition ICD-9 Code Onset Dates Condition Status Assessment Congestive heart failure, unspecified 428.0 Active Problem Mixed hyperlipidemia 272.2 Active Assessment Acute venous embolism and thrombosis of unspecified deep vessels of lower extremity 453.40 Active Assessment Diabetes mellitus without mention of complication, type II or unspecified type, uncontrolled 250.02 Active Assessment COPD 496 Active Problem Congestive heart failure, unspecified 428.0 [...] Date End Date Status Dosage Ventolin HFA [facility] [address]-96 108 (90 Base) MCG/ACT Inhalation every 4 hrs Oct 23, 2013 2 puffs as needed Albuterol Sulfate [facility] [address]-77 1.25 MG/3ML Inhalation qid Oct 12, 2014 3 ml as needed Levaquin [facility] [address]-10 250 MG Orally Once a day 1 tablet Warfarin Sodium [facility] [address]-59 5MG Orally Once daily 1 tablet Benadryl [facility] [address]-89 25 MG Orally takesp in am 4 ca 1 capsule as needed Viagra [facility] [address]-11 100 MG Orally Once a day Oct 08, 2013 1 tablet as needed PredniSONE [facility] [address]-14 20 MG Orally Once a day 1 tablet with food or milk Metformin HCl [facility] [address]-81 500 MG Orally Twice a day February 18, 2014 1 tablet with meals Lasix [facility] [address]-54 20 MG Orally a.m. and noon Oct 11, 2014 1 tablet GlyBURIDE [facility] [address]-72 5MG Orally Once a day TAKE ONE TABLET BY MOUTH ONCE DAILY Procedures Procedure Coding System Code Date B TYPE NATRIURETIC PEPTIDE CPT-4 32966 January 06, 2015 COMPLETE CBC W/AUTO DIFF WBC CPT-4 73619 January 06, 2015 PROTIME INR, IN HOUSE CPT-4 15236 January 06, 2015 -ELECTROCARDIOGRAM, COMPLETE CPT-4 16773 January 06, 2015 IH CMP CPT-4 19489 January 06, 2015 OFFICE VISIT, EST-MOD. COMPLEXITY (25 MIN) CPT-4 42071 January 06, 2015 Vital Signs Date/Time: January 06, 2015 Height 71.5 in Weight 239.8 lbs Temperature 98.0 F Blood Pressure Diastolic 72 mm Hg Blood Pressure Systolic 120 mm Hg Cardiac Monitoring Heart Rate 94 /min BMI 32.98 Index Oximetry 90 % Results No Known Results Summary Purpose eClinicalWorks Submission
--- OUTSIDE RECORDS SUMMARY | 2016-11-27 22:04 | XMS REPORT ---
Author Author Carisa Pastor [facility] eClinicalWorks Address Unknown Phone Unavailable Care Team Providers Care Tail Dogger Name Role Phone Carisa Pastor CP Unavailable [...] exacerbation J44.1 Active Problem Coronary atherosclerosis of [place] coronary artery 414.01 Active Problem Diabetes Mellitus Type 2, not stated as uncontrolled 250.00 Active Problem Coronary atherosclerosis of unspecified type of vessel, [place] or graft 414.00 Active Problem Coronary atherosclerosis of [place] coronary artery 414.01 Active Assessment COPD 496 Active Assessment Acute thromboembolism of deep veins of lower extremity I82.409 Active Assessment Chronic obstructive pulmonary disease, unspecified COPD type J44.9 Active Assessment Mixed hyperlipidemia E78.2 Active Problem COPD 496 Active Problem Diabetes [...] Start Date End Date Status Dosage GlyBURIDE [facility] 09116651262 5 MG Orally Once a day TAKE 2 TABLET BY MOUTH ONCE DAILY Warfarin Sodium [facility] [address]-51 5MG Orally as directed take 1 tablet daily except saturday, saturday, saturday take 1.5 tablets Dulera [facility] [address]-13 100-5 MCG/ACT Inhalation May 22, 2016 as directed ProAir HFA [facility] [address]-67 108 (90 Base) MCG/ACT Inhalation every 4 hrs May 22, 2016 2 puffs as needed Bystolic [facility] [address]-66 5 MG Orally Once a day May 22, 2016 1 tablet Metformin HCl [facility] 34446286710 500 MG Orally Twice a day 2 tablets with meals; needs appt before next refill. Albuterol Sulfate [facility] [address]-07 1.25 MG/3ML Inhalation qid Oct 12, 2014 3 ml as needed Bumetanide [facility] [address]-12 1 MG Orally Twice every day Aug 23, 2015 1 tablet pravastatin [facility] [address]-04 20 mg oral 1 per day May 22, 2016 as directed Procedures Procedure Coding System Code Date OFFICE VISIT, EST-LOW COMPLEXITY (15 MIN.) CPT-4 79988 May 22, 2016 HEMOGLOBIN A1C, IN HOUSE CPT-4 57735 May 22, 2016 Vital Signs Date/Time: May 22, 2016 Temperature 98.6 F Height 71.5 in Weight 213.8 lbs Blood Pressure Diastolic 90 mm Hg Blood Pressure Systolic 140 mm Hg Cardiac Monitoring Heart Rate 80 /min BMI 29.40 Index Respiratory Rate 16 /min Results Name Result Date Reference Range Unit Abnormality Flag In House HB A1c ----Hemoglobin A1c 10.4 [id number] Summary Purpose eClinicalWorks Submission
--- OUTSIDE RECORDS SUMMARY | 2016-11-27 22:04 | XMS REPORT ---
Author Author Lynne Lanier Organization [employer] Address Unknown Phone Unavailable Care Team Providers Care Accounting Intern Name Role Phone Lynne Lanier CP [...] of [place] coronary artery 414.01 Active Problem Personal history of venous thrombosis and embolism V12.51 Active Problem Congestive heart failure, unspecified 428.0 Active Problem Tobacco abuse V15.82 Active Problem Diabetes Mellitus Type 2, not stated as uncontrolled 250.00 Active Problem Anticoagulation therapy V58.61 Active Medications Medication Code System Code Instructions Start Date End Date Status Dosage DuoNeb [facility] [address]-72 0.5-2.5 (3) MG/3ML Inhalation Four times a day March 22, 2015 3 ml Results No Known Results Summary Purpose [employer] Submission
--- OUTSIDE RECORDS SUMMARY | 2016-11-27 22:04 | XMS REPORT ---
Author Author Moreno León Organization [employer] Address Unknown Phone Unavailable Care Team Providers Care Lead Simulation Modeling Engineer Name Role Phone Moreno León CP Unavailable Allergies No Known Allergies Problems Problem Type Condition Code Onset Dates Condition Status Problem Acute venous embolism and thrombosis of unspecified deep vessels of lower extremity 453.40 Active Problem Tobacco abuse V15.82 Active Problem Impotence of organic origin 607.84 Active Problem Coronary atherosclerosis of unspecified type of vessel, [place] or graft 414.00 Active Problem Coronary atherosclerosis of [place] coronary artery 414.01 Active Problem Personal history of venous thrombosis and embolism V12.51 Active Problem Anticoagulation therapy V58.61 Active Problem Congestive heart failure, unspecified 428.0 Active Problem Coronary atherosclerosis of [place] coronary artery 414.01 Active Problem Diabetes Mellitus Type 2, not stated as uncontrolled 250.00 Active Problem Mixed hyperlipidemia 272.2 Active Problem COPD 496 Active Problem Diabetes mellitus without mention of complication, type II or unspecified type, uncontrolled 250.02 Active Medications No Known Medications Results No Known Results Summary Purpose [employer] Submission
--- OUTSIDE RECORDS SUMMARY | 2016-11-27 22:04 | XMS REPORT ---
Author Author Lynne Lanier Organization [employer] Address Unknown Phone Unavailable Care Team Providers Care Steam Oven Operator Name Role Phone Lynne Lanier CP Unavailable [...] Coronary atherosclerosis of unspecified type of vessel, [place] or graft 414.00 Active Problem Coronary atherosclerosis of [place] coronary artery 414.01 Active Problem Personal history of venous thrombosis and embolism V12.51 Active Problem Congestive heart failure, unspecified 428.0 Active Problem Tobacco abuse V15.82 Active Problem Diabetes Mellitus Type 2, not stated as uncontrolled 250.00 Active Problem Anticoagulation therapy V58.61 Active Medications No Known Medications Results No Known Results Summary Purpose [facility] Submission
--- OUTSIDE RECORDS SUMMARY | 2016-11-27 22:04 | XMS REPORT ---
Author Author Lynne Lanier Organization [employer] Address Unknown Phone Unavailable Care Team Providers Care Basin Operator Name Role Phone Lynne Lanier CP [...] Coronary atherosclerosis of unspecified type of vessel, [place] or graft 414.00 Active Problem Coronary atherosclerosis of [place] coronary artery 414.01 Active Problem Personal history of venous thrombosis and embolism V12.51 Active Problem Congestive heart failure, unspecified 428.0 Active Problem Tobacco abuse V15.82 Active Problem Diabetes Mellitus Type 2, not stated as uncontrolled 250.00 Active Problem Anticoagulation therapy V58.61 Active Assessment Anticoagulation therapy V58.61 Active Assessment Acute venous embolism and thrombosis of unspecified deep vessels of lower extremity 453.40 Active Problem Mixed hyperlipidemia 272.2 Active Problem COPD 496 Active Medications Medication Code System Code Instructions Start Date End Date Status Dosage Warfarin Sodium [facility] [address]-26 5MG Orally as directed take 1 tablet every day exept Wed take 1.5 tablets for a dose of 7.5mg Results No Known Results Summary Purpose [employer] Submission
--- OUTSIDE RECORDS SUMMARY | 2016-11-27 22:04 | XMS REPORT ---
Author Author Lynne Lanier Organization [employer] Address Unknown Phone Unavailable Care Team Providers Care Maintenance Equipment Operator Name Role Phone Lynne Lanier CP Unavailable Allergies No Known Allergies Problems Problem Type Condition ICD-9 Code Onset Dates Condition Status Problem Acute venous embolism and thrombosis of unspecified deep vessels of lower extremity 453.40 Active Problem Tobacco abuse V15.82 Active Problem Impotence of organic origin 607.84 Active Problem Coronary atherosclerosis of unspecified type of vessel, [place] or graft 414.00 Active Problem Coronary atherosclerosis of [place] coronary artery 414.01 Active Problem Personal history of venous thrombosis and embolism V12.51 Active Problem Anticoagulation therapy V58.61 Active Problem Congestive heart failure, unspecified 428.0 Active Problem Coronary atherosclerosis of [place] coronary artery 414.01 Active Problem Diabetes Mellitus Type 2, not stated as uncontrolled 250.00 Active Problem Mixed hyperlipidemia 272.2 Active Problem COPD 496 Active Problem Diabetes mellitus without mention of complication, type II or unspecified type, uncontrolled 250.02 Active Medications Medication Code System Code Instructions Start Date End Date Status Dosage GlyBURIDE [facility] [address]-79 10 mg Orally Once a day TAKE ONE TABLET BY MOUTH ONCE DAILY Warfarin Sodium [facility] [address]-70 5MG Orally as directed take 1 tablet every day exept Wed take 1.5 tablets for a dose of 7.5mg Results No Known Results Summary Purpose [employer] Submission
--- OUTSIDE RECORDS SUMMARY | 2016-11-27 22:05 | XMS REPORT ---
Author Author Carisa Pastor Organization [employer] Address Unknown Phone Unavailable Care Team Providers Care Labor Trainer Name Role Phone Carisa Pastor CP Unavailable Allergies No Known Allergies Problems Problem Type Condition Code Onset Dates Condition Status Problem Acute venous embolism and thrombosis of unspecified deep vessels of lower extremity 453.40 Active Problem Tobacco abuse V15.82 Active Problem Impotence of organic origin 607.84 Active Problem Coronary atherosclerosis of unspecified type of vessel, [place] or graft 414.00 Active Problem Coronary atherosclerosis of [place] coronary artery 414.01 Active Problem Personal history of venous thrombosis and embolism V12.51 Active Problem Anticoagulation therapy V58.61 Active Problem Congestive heart failure, unspecified 428.0 Active Problem Coronary atherosclerosis of [place] coronary artery 414.01 Active Problem Diabetes Mellitus Type 2, not stated as uncontrolled 250.00 Active Assessment COPD 496 Active Problem Mixed hyperlipidemia 272.2 Active Problem COPD 496 Active Problem Diabetes mellitus without mention of complication, type II or unspecified type, uncontrolled 250.02 Active Medications Medication Code System Code Instructions Start Date End Date Status Dosage Albuterol Sulfate [facility] [address]-28 1.25 MG/3ML Inhalation qid Oct 12, 2014 3 ml as needed Results No Known Results Summary Purpose [employer] Submission
--- OUTSIDE RECORDS SUMMARY | 2016-11-27 22:05 | XMS REPORT ---
Author Author Lynne Lanier Organization [employer] Address Unknown Phone Unavailable Care Team Providers Care Community Outreach Specialist Name Role Phone Lynne Lanier CP Unavailable Allergies No Known Allergies Problems Problem Type Condition ICD-9 Code Onset Dates Condition Status Problem Acute venous embolism and thrombosis of unspecified deep vessels of lower extremity 453.40 Active Problem Tobacco abuse V15.82 Active Problem Impotence of organic origin 607.84 Active Problem Coronary atherosclerosis of unspecified type of vessel, [place] or graft 414.00 Active Problem Coronary atherosclerosis of [place] coronary artery 414.01 Active Problem Personal history of venous thrombosis and embolism V12.51 Active Problem Anticoagulation therapy V58.61 Active Problem Congestive heart failure, unspecified 428.0 Active Problem Coronary atherosclerosis of [place] coronary artery 414.01 Active Problem Diabetes Mellitus Type 2, not stated as uncontrolled 250.00 Active Problem Mixed hyperlipidemia 272.2 Active Problem COPD 496 Active Problem Diabetes mellitus without mention of complication, type II or unspecified type, uncontrolled 250.02 Active Medications Medication Code System Code Instructions Start Date End Date Status Dosage Warfarin Sodium [facility] [address]-37 5MG Orally as directed take 1 tablet every day exept Wed take 1.5 tablets for a dose of 7.5mg Results No Known Results Summary Purpose [employer] Submission
--- OUTSIDE RECORDS SUMMARY | 2016-11-27 22:05 | XMS REPORT ---
Author Author Moreno León Organization [employer] Address Unknown Phone Unavailable Care Team Providers Care Senior Marketing Associate Name Role Phone Moreno León CP Unavailable [...] Coronary atherosclerosis of unspecified type of vessel, [place] or graft 414.00 Active Problem Coronary atherosclerosis of [place] coronary artery 414.01 Active Problem Personal history of venous thrombosis and embolism V12.51 Active Problem Congestive heart failure, unspecified 428.0 Active Problem Tobacco abuse V15.82 Active Problem Diabetes Mellitus Type 2, not stated as uncontrolled 250.00 Active Problem Anticoagulation therapy V58.61 Active Medications Medication Code System Code Instructions Start Date End Date Status Dosage ProAir HFA [facility][NOTE 3] [address]-28 108 (90 Base) MCG/ACT Inhalation every 4 hrs February 11, 2015 2 puffs as needed Results No Known Results Summary Purpose [employer] Submission
--- OUTSIDE RECORDS SUMMARY | 2016-11-27 22:05 | XMS REPORT ---
Author Author Moreno León Organization [employer] Address Unknown Phone Unavailable Care Team Providers Care Hollow Tile Partition Erector Name Role Phone Moreno León CP Unavailable Allergies No Known Allergies Problems Problem Type Condition Code Onset Dates Condition Status Problem Acute venous embolism and thrombosis of unspecified deep vessels of lower extremity 453.40 Active Problem Tobacco abuse V15.82 Active Problem Impotence of organic origin 607.84 Active Problem Coronary atherosclerosis of unspecified type of vessel, [place] or graft 414.00 Active Problem Coronary atherosclerosis of [place] coronary artery 414.01 Active Problem Personal history of venous thrombosis and embolism V12.51 Active Problem Anticoagulation therapy V58.61 Active Problem Congestive heart failure, unspecified 428.0 Active Problem Coronary atherosclerosis of [place] coronary artery 414.01 Active Problem Diabetes Mellitus Type 2, not stated as uncontrolled 250.00 Active Problem Mixed hyperlipidemia 272.2 Active Problem COPD 496 Active Problem Diabetes mellitus without mention of complication, type II or unspecified type, uncontrolled 250.02 Active Medications No Known Medications Results No Known Results Summary Purpose [employer] Submission
--- OUTSIDE RECORDS SUMMARY | 2016-11-27 22:05 | XMS REPORT ---
Author Author Lynne Lanier Organization [employer] Address Unknown Phone Unavailable Care Team Providers Care Edging Machine Setter Name Role Phone Lynne Lanier CP Unavailable [...] Coronary atherosclerosis of unspecified type of vessel, [place] or graft 414.00 Active Problem Coronary atherosclerosis of [place] coronary artery 414.01 Active Problem Personal history of venous thrombosis and embolism V12.51 Active Problem Congestive heart failure, unspecified 428.0 Active Problem Tobacco abuse V15.82 Active Problem Diabetes Mellitus Type 2, not stated as uncontrolled 250.00 Active Problem Anticoagulation therapy V58.61 Active Assessment COPD 496 Active Assessment Anticoagulation therapy V58.61 Active Assessment Tobacco abuse V15.82 Active Assessment Mixed hyperlipidemia 272.2 Active Assessment Congestive heart failure, unspecified 428.0 Active Assessment Coronary atherosclerosis of [place] coronary artery 414.01 Active Assessment Personal history of venous thrombosis and embolism V12.51 Active Problem Mixed hyperlipidemia 272.2 Active Assessment Diabetes Mellitus Type 2, not stated as uncontrolled 250.00 Active Problem COPD 496 Active Medications Medication Code System Code Instructions Start Date End Date Status Dosage Warfarin Sodium [facility] [address]-99 5MG Orally as directed take 1 tablet every day exept Wed take 1.5 tablets for a dose of 7.5mg Budesonide [facility] [address]-16 Inhalation Twice a day not defined Lantus SoloStar [facility] [address]-96 100 UNIT/ML Subcutaneous Once a day Nov 19, 2014 15 units Benadryl [facility] [address]-79 25 MG Orally takesp in am 4 ca 1 capsule as needed Lisinopril [facility] [address]-46 2.5 MG Orally Once a day 1 tablet Atorvastatin Calcium [facility] [address]-00 40 MG Orally Once a day 1 tablet Furosemide [facility] [address]-57 40 MG Orally Twice a day 1 tablet Metformin HCl [facility] [address]-37 500 MG Orally Twice a day February 18, 2014 2 tablet with meals GlyBURIDE [facility] [address]-57 10 mg Orally Once a day TAKE ONE TABLET BY MOUTH ONCE DAILY Potassium Bicarb-Citric Acid [facility] [address]-32 20 MEQ Orally Once a day 1 tablet ProAir HFA [facility] [address]-41 108 (90 Base) MCG/ACT Inhalation every 4 hrs February 11, 2015 2 puffs as needed Ventolin HFA [facility] [address]-92 108 (90 Base) MCG/ACT Inhalation every 4 hrs Oct 23, 2013 2 puffs as needed Metoprolol Tartrate [facility] [address]-05 25 MG Orally Twice a day 1 tablet Albuterol Sulfate [facility] [address]-23 1.25 MG/3ML Inhalation qid Oct 12, 2014 3 ml as needed Procedures Procedure Coding System Code Date OFFICE VISIT, EST-LOW COMPLEXITY (15 MIN.) CPT-4 [id number] March 10, 2015 Vital Signs Date/Time: March 10, 2015 Height 71.5 in Weight 222.4 lbs Temperature 98.3 F Blood Pressure Diastolic 58 mm Hg Blood Pressure Systolic 115 mm Hg Cardiac Monitoring Heart Rate 88 /min BMI 30.58 Index Oximetry 91 % Results No Known Results Summary Purpose [employer] Submission
--- OUTSIDE RECORDS SUMMARY | 2016-11-27 22:05 | XMS REPORT ---
Author Author Lynne Lanier Organization [employer] Address Unknown Phone Unavailable Care Team Providers Care Housekeeping Coordinator Name Role Phone Lynne Lanier CP Unavailable [...] Coronary atherosclerosis of unspecified type of vessel, [place] or graft 414.00 Active Problem Coronary atherosclerosis of [place] coronary artery 414.01 Active Problem Personal history of venous thrombosis and embolism V12.51 Active Problem Congestive heart failure, unspecified 428.0 Active Problem Tobacco abuse V15.82 Active Problem Diabetes Mellitus Type 2, not stated as uncontrolled 250.00 Active Problem Anticoagulation therapy V58.61 Active Medications Medication Code System Code Instructions Start Date End Date Status Dosage Metformin HCl [facility] [address]-95 500 MG Orally Twice a day February 18, 2014 1 tablet with meals Results No Known Results Summary Purpose [employer] Submission
--- OUTSIDE RECORDS SUMMARY | 2016-11-27 22:05 | XMS REPORT | Referral Summary ---
Author Organization Unknown Address Unknown Phone Unavailable Care Team Providers Care Office Nurse Practitioner Name Role Phone Salma Lanier Primary Care Physician [phone] Encounter VC Date(s): 01/10/15 - 01/24/15 [facility] [address] [place] [address] [phone] Discharge Disposition: Home with Home Health Care Attending Physician: Navarro Conn MD Admitting Physician: Navarro Conn MD Vital Signs Most recent to 1 oldest [Reference Range]: Temperature Axillary 37.3 degC [35.2-36.7 degC] *HI* (01/24/15 9:00 AM) Temperature Oral 36.8 degC [35.8-37.3 degC] (01/24/15 4:36 PM) Temperature Temporal 36.8 degC Artery [36.3-37.8 (01/22/15 8:00 AM) degC] Peripheral Pulse 93 bpm Rate [60-100 bpm] (01/24/15 4:36 PM) Peripheral Pulse 95 bpm Rate with Activity (01/22/15 2:29 PM) Heart Rate Monitored 93 bpm [60-100 bpm] (01/24/15 10:50 AM) Respiratory Rate 20 br/min [14-20 br/min] (01/24/15 4:36 PM) Blood Pressure 95/66 mmHg [90-140/60-90 mmHg] (01/24/15 4:36 PM) Systolic Blood 108 mmHg Pressure with (01/22/15 2:29 PM) Activity Diastolic Blood 74 mmHg Pressure with (01/22/15 2:29 PM) Activity Mean Arterial 95 mmHg Pressure, Cuff (01/22/15 8:00 AM) Blood Pressure 102/81 mmHg Invasive (01/15/15 8:00 PM) [90-140/60-90 mmHg] Mean Arterial 90 mmHg Pressure, Invasive (01/15/15 8:00 PM) Most recent to 1 oldest [Reference Range]: SpO2 91 % (01/24/15 4:36 PM) Problem List Condition Effective Dates Status Health Status Informant Acute Active pain(Confirmed) At risk for Active injury(Confirmed)1 At risk for unstable Active blood glucose level(Confirmed)2 At risk of pressure Active sore(Confirmed) Cardiac Active disorder(Confirmed)3 Fluid Active imbalance(Confirmed) 4 Ineffective airway Active clearance(Confirmed) 5 Knowledge Active deficit(Confirmed)6 Methicillin Active resistant Staphylococcus aureus(Confirmed)7 Tissue perfusion Active alteration(Confirmed )8 1Problem added automatically by system based on [...] of Ineffective Airway Clearance Plan of Care 6Problem added automatically by system based on initiation of Knowledge Deficit Plan of Care 7Sputum from NOT FOUND collected 01/12/15 13:36:00 CDT 8Problem added automatically by system based on initiation of Tissue Perfusion Cerebral Plan of Care Allergies, Adverse Reactions, Alerts Substance Reaction Severity Status doxycycline Active oxytetracycline Active penicillin Adverse Reaction Active Medications atorvastatin 40 mg oral tablet 1 tabs, Oral, Bedtime (once a day), 0 Refill(s) Start Date: 01/24/15 Status: Ordered Bactrim DS 1 tabs, Oral, BID, 0 Refill(s) Start Date: 01/24/15 Status: Ordered budesonide 0.5 mg/2 mL inhalation suspension 2 mL, NEB, BID, 0 Refill(s) Start Date: 01/24/15 Status: Ordered Coumadin 5 mg oral tablet See Instructions, One tablet daily all days of the week except on Saturday take two tablets, 0 Refill(s) Special Instructions: One tablet daily all days of the week except on Saturday take two tablets Start Date: 01/24/15 Status: Ordered DuoNeb 0.5 mg-2.5 mg/3 mL inhalation solution 3 mL, Inhalation, QID, # 60 Each, 0 Refill(s), other reason (Rx) Start Date: 01/24/15 Status: Ordered glyBURIDE 2.5 mg, Oral, Daily, 0 Refill(s) Start Date: 01/11/15 Status: Ordered Lantus 100 units/mL subcutaneous solution 0.2 mL, SubCutaneous, Bedtime (once a day), 0 Refill(s) Start Date: 01/24/15 Status: Ordered Lasix 40 mg oral tablet 1 tabs, Oral, BID, 0 Refill(s) Start Date: 01/24/15 Status: Ordered lisinopril 2.5 mg oral tablet 1 tabs, Oral, Daily, 0 Refill(s) Start Date: 01/24/15 Status: Ordered metFORMIN 500 mg oral tablet 2 tabs, Oral, With BKFT and Dinner, 0 Refill(s) Start Date: 01/24/15 Status: Ordered metoprolol tartrate 25 mg oral tablet 1 tabs, Oral, BID, 0 Refill(s) Start Date: 01/11/15 Status: Ordered Nitrostat 0.4 mg sublingual tablet 1 tabs, SubLingual, q5min, Angina/Chest Pain, 0 Refill(s) Start Date: 01/24/15 Status: Ordered potassium chloride 20 mEq oral tablet, extended release 1 tabs, Oral, Daily, # 30 tabs, 0 Refill(s), other reason (Rx) Start Date: 01/24/15 Status: Ordered ProAir HFA 90 mcg/inh inhalation aerosol 2 puffs, Inhalation, q4hr, Shortness of Breath/Wheezing, # 8.5 g, 0 Refill(s) Start Date: 01/11/15 Status: Ordered Robitussin Mucus + Chest Congestion 100 mg/5 mL oral liquid 5 mL, Oral, q4hr, Cough/ Congestion, 0 Refill(s) Start Date: 01/24/15 Status: Ordered Zovirax 400 mg oral tablet 2 tabs, Oral, 5x/Day, 0 Refill(s) Start Date: 01/24/15 Status: Ordered Results Blood Gases Most recent to 1 oldest [Reference Range]: pH [7.35-7.45] 7.42 (01/20/15 5:55 AM) PCO2 Arterial POC 54 mmHg [35-45 mmHg] *HI* (01/14/15 1:42 PM) pCO2 Art [35-45 48 mmHg mmHg] *HI* (01/20/15 5:55 AM) CO2 Totl Art [23-27 34 mEq/L mEq/L] *HI* (01/14/15 1:42 PM) Arterial PO2 [80-100 77 mmHg mmHg] *LOW* (01/20/15 5:55 AM) Bicarbonate [22-26 30 mEq/L mEq/L] *HI* (01/20/15 5:55 AM) Bicarbonate Arterial 32 mEq/L POC [22-26 mEq/L] *HI* (01/14/15 1:42 PM) Base Excess Arterial 7 POC [0-2] *HI* (01/14/15 1:42 PM) Base Excess Art 5 [0-2] *HI* (01/20/15 5:55 AM) SaO2 Art [90.0-97.0 95.7 % %] (01/20/15 5:55 AM) O2 Saturation 93.0 % Arterial POC (01/14/15 1:42 PM) [90.0-97.0 %] pH Arterial POC 7.38 [7.35-7.45] (01/14/15 1:42 PM) PO2 Arterial POC 71 mmHg [80-100 mmHg] *LOW* (01/14/15 1:42 PM) LPM Art 8.0 L/min (01/20/15 5:55 AM) O2 Panel Nasal Cannula (01/20/15 5:55 AM) Vent Mode AC (01/14/15 3:20 PM) Set Vt 550 mL (01/14/15 3:20 PM) Insp. Pressure 15 (01/18/15 7:45 PM) Set Rate 15 br/min (01/18/15 7:45 PM) FiO2 Art [0-100] 80 (01/18/15 7:45 PM) PEEP 5.0 (01/14/15 3:20 PM) EPAP 7 (01/18/15 7:45 PM) Inspiratory Time Art 0.90 (01/14/15 3:20 PM) Total Rate 14 br/min (01/14/15 3:20 PM) Spec Site Radial-L (01/20/15 5:55 AM) Hematology Most recent to 1 oldest [Reference Range]: WBC [4.8-10.8 K/uL] 8.3 K/uL (01/21/15 3:27 AM) RBC [4.60-6.20 M/uL] 3.98 M/uL *LOW* (01/21/15 3:27 AM) Hgb [14.0-18.0 11.6 gm/dL gm/dL] *LOW* (01/21/15 3:27 AM) Hct [42.0-52.0 %] 35.8 % *LOW* (01/21/15 3: AM) MCV [82.0-99.0 fL] 89.9 fL (01/21/15 3:27 AM) MCH [27.0-32.0 pg] 29.1 pg (01/21/15 3: AM) MCHC [32.0-36.0 32.4 gm/dL gm/dL] (01/21/15 3:27 AM) RDW [11.5-14.5 %] 15.1 % *HI* (01/21/15 3: AM) Platelet [150-400 236 K/uL K/uL] (01/21/15 3:27 AM) MPV [9.4-12.3 fL] 11.1 fL (01/21/15 3:27 AM) Immature 0.3 % Granulocytes (01/15/15 3: AM) [0.0-1.0 %] Neutrophils [51-75 75 % %] (01/15/15 3:20 AM) [place] Man [0-8 %] 4 % (01/13/15 1:40 PM) [place] Man [0-1 %] 1 % (01/13/15 1:40 PM) Lymphocytes [20-46 11 % %] *LOW* (01/15/15 3:20 AM) Monocytes [4-11 %] 13 % *HI* (01/15/15 3:20 AM) Eosinophils [0-4 %] 0 % (01/15/15 3:20 AM) Basophils [0-2 %] 0 % (01/15/15 3:20 AM) Neutro Absolute 7.11 THOUS [1.90-7.00 THOUS] *HI* (01/15/15 3:20 AM) Lymph Absolute 1.06 THOUS [0.80-3.30 THOUS] (01/15/15 3:20 AM) [place] Absolute 1.26 THOUS [0.30-1.00 THOUS] *HI* (01/15/15 3:20 AM) Eos Absolute 0.01 THOUS [0.00-0.50 THOUS] (01/15/15 3:20 AM) Baso Absolute 0.01 THOUS [0.00-0.20 THOUS] (01/15/15 3:20 AM) Nucleated RBC 0.0 /100 WBC Automated [0 /100 (01/15/15 3:20 AM) WBC] Differential Manual *ABN* (01/13/15 1:40 PM) Coagulation Most recent to 1 oldest [Reference Range]: INR [0.9-1.2] 1.9 *HI* (01/24/15 6:19 AM) PTT [25.0-35.0] 26.0 1 (01/14/15 1:40 PM) Fibrinogen Lvl 261 mg/dL [187-520 mg/dL] (01/14/15 1:40 PM) 1Result Comment: Called all results to or#23 01/14/2015 14:04 Chemistry Most recent to 1 oldest [Reference Range]: Sodium Lvl [136-144 132 mEq/L mEq/L] *LOW* (01/22/15 4:10 AM) Potassium Lvl 4.3 mEq/L [3.6-5.1 mEq/L] (01/22/15 4:10 AM) Chloride [99-109 100 mEq/L mEq/L] (01/22/15 4:10 AM) CO2 [22-32 mEq/L] 27 mEq/L (01/22/15 4:10 AM) AGAP [3-20] 5 (01/22/15 4:10 AM) BUN [4-20 mg/dL] 20 mg/dL (01/22/15 4:10 AM) Glucose Lvl [70-100 191 mg/dL mg/dL] *HI* (01/22/15 4:10 AM) Creatinine Lvl 0.82 mg/dL [0.64-1.27 mg/dL] (01/22/15 4:10 AM) eGFR [>60] >60 4 (01/22/15 4:10 AM) Calcium Lvl 8.2 mg/dL [8.6-10.0 mg/dL] *LOW* (01/22/15 4:10 AM) Albumin Lvl [3.5-4.8 2.9 gm/dL gm/dL] *LOW* (01/17/15 4:12 AM) Total Protein 5.4 gm/dL [6.1-7.9 gm/dL] *LOW* (01/17/15 4:12 AM) Globulin [1.9-4.3 2.5 gm/dL gm/dL] (01/17/15 4:12 AM) ALT [17-63 unit/L] 28 unit/L (01/17/15 4:12 AM) AST [15-41 unit/L] 43 unit/L *HI* (01/17/15 4:12 AM) Alk Phos [26-104 26 unit/L unit/L] (01/17/15 4:12 AM) Bili Total [0.2-1.2 1.3 mg/dL 3 mg/dL] *HI* (01/17/15 4:12 AM) Magnesium Lvl 2.0 mg/dL [1.8-2.5 mg/dL] (01/21/15 3:27 AM) Phosphorus [2.4-4.7 4.6 mg/dL 2 mg/dL] (01/13/15 3:19 AM) Calcium Ionized 1.14 mmol/L [1.19-1.41 mmol/L] *LOW* (01/16/15 5:29 AM) Prealbumin [18-38 17 mg/dL mg/dL] *LOW* (01/13/15 1:39 PM) Sodium Arterial NPT 141 mEq/L [136-144 mEq/L] (01/14/15 1:42 PM) Potassium Arterial 2.9 mEq/L 5 NPT [3.6-5.1 mEq/L] *LOW* (01/14/15 1:42 PM) Calcium Ionized 1.13 mmol/L Arterial NPT *LOW* [1.19-1.41 mmol/L] (01/14/15 1:42 PM) HCT Arterial NPT 32.0 % (01/14/15 1:42 PM) HGB Arterial NPT 10.9 gm/dL (01/14/15 1:42 PM) Arterial Glucose NPT 155 mg/dL [70-100 mg/dL] *HI* (01/14/15 1:42 PM) Activated Clotting 116 Time NPT [100-146] (01/14/15 1:41 PM) Blood Glucose, 167 mg/dL Capillary [70-100 *HI* mg/dL] (01/24/15 4:38 PM) Blood Glucose, High 6 Capillary Out of (01/13/15 6:00 AM) Range Chol [0-200 mg/dL] 162 mg/dL (01/11/15 5:09 AM) Trig [0-150 mg/dL] 48 mg/dL (01/11/15 5:09 AM) HDL [>40 mg/dL] 50 mg/dL (01/11/15 5:09 AM) LDL [0-100 mg/dL] 102 mg/dL *HI* (01/11/15 5:09 AM) VLDL Cholesterol 10 mg/dL [0-30 mg/dL] (01/11/15 5:09 AM) Cardiac Risk 3.2 [0.0-5.7] (01/11/15 5:09 AM) Hgb A1c [4.1-5.6 %] 11.0 % *HI* (01/13/15 1:39 PM) eAvg Glucose 269.0 mg/dL (01/13/15 1:09 PM) 2Result Comment: High dosages of liposomal Amphotericin B (AmBisome) therapy or other drug preparations that use a liposomal envelope to facilitate drug delivery may cause falsely elevated results for phosphorus. 3Result Comment: Naproxen, specifically the metabolite O-desmethylnaproxen, may cause spurious elevation in Total Bilirubin levels. 4Result Comment: Multiply eGFR results by 1.21 for race. 5Result Comment: This test was performed on a whole blood specimen. The presence or absence of hemolysis cannot be assessed. Hemolysis can falsely elevate potassium levels. Normals are for venous specimens only. 6Result Comment: insulin per scale Urinalysis Most recent to 1 oldest [Reference Range]: UA Color Yellow (01/13/15 8:07 PM) UA Appear Clear (01/13/15 8:07 PM) UA pH [5.0-8.0] 7.0 (01/13/15 8:07 PM) UA Leuk Est Negative [Negative] (01/13/15 8:07 PM) UA Nitrite Negative [Negative] (01/13/15 8:07 PM) UA Protein Negative [Negative] (01/13/15 8:07 PM) UA Glucose Pos 1+ [Negative] *ABN* (01/13/15 8:07 PM) UA Ketones Negative [Negative] (01/13/15 8:07 PM) UA Urobilinogen 1.0 mg/dL [<1.0 mg/dL] (01/13/15 8:07 PM) UA Bili [Negative] Negative (01/13/15 8:07 PM) UA Blood [Negative] Negative (01/13/15 8:07 PM) UA Spec Grav 1.010 [1.003-1.030] (01/13/15 8:07 PM) Type Clean Catch (01/13/15 8:07 PM) Blood Bank Results Most recent to 1 oldest [Reference Range]: ABO/Rh A POS (01/13/15 1:39 PM) Antibody Screen Tube NEG (01/13/15 1:39 PM) Microbiology Reports PROCEDURE: Sputum Culture and Smear STATUS: Auth (Verified) BODY SITE: SOURCE: Sputum COLLECTED DATE/TIME: 01/19/15 2:20 PM ORGANISM:Methicillin-Resistant Staphylococcus aureus ORGANISM:Gram Negative Rods PROCEDURE: MRSA Screen Culture STATUS: Auth (Verified) BODY SITE: SOURCE: Nares COLLECTED DATE/TIME: 01/13/15 4:11 PM Immunizations No data available for this section Procedures Procedure Date Related Diagnosis Body Site Replacement, complete, of a peripherally 01/24/15 inserted central venous catheter (PICC), without subcutaneous port or pump, through same venous access Arterial puncture, withdrawal of blood for 01/20/15 diagnosis Arterial puncture, withdrawal of blood for 01/18/15 diagnosis Arterial puncture, withdrawal of blood for 01/18/15 diagnosis Bypass Graft Coronary Artery1 01/14/15 [place] Vein Endoscopic (Right)2 01/14/15 1auto-populated from documented surgical case 2auto-populated from documented surgical case Social History No data available for this section Assessment and Plan No data available for this section
--- OUTSIDE RECORDS SUMMARY | 2016-11-27 22:05 | XMS REPORT ---
Author Author Lynne Lanier Organization [employer] Address Unknown Phone Unavailable Care Team Providers Care Bricklayer Apprentice Name Role Phone Lynne Lanier CP Unavailable Allergies No Known Allergies Problems Problem Type Condition Code Onset Dates Condition Status Problem Acute venous embolism and thrombosis of unspecified deep vessels of lower extremity 453.40 Active Problem Tobacco abuse V15.82 Active Problem Impotence of organic origin 607.84 Active Problem Coronary atherosclerosis of unspecified type of vessel, [place] or graft 414.00 Active Problem Coronary atherosclerosis of [place] coronary artery 414.01 Active Problem Personal history of venous thrombosis and embolism V12.51 Active Problem Anticoagulation therapy V58.61 Active Problem Congestive heart failure, unspecified 428.0 Active Problem Coronary atherosclerosis of [place] coronary artery 414.01 Active Problem Diabetes Mellitus Type 2, not stated as uncontrolled 250.00 Active Problem Mixed hyperlipidemia 272.2 Active Problem COPD 496 Active Problem Diabetes mellitus without mention of complication, type II or unspecified type, uncontrolled 250.02 Active Medications No Known Medications Results No Known Results Summary Purpose [employer] Submission
--- OUTSIDE RECORDS SUMMARY | 2016-11-27 22:05 | XMS REPORT ---
Author Author Carisa Pastor Organization [employer] Address Unknown Phone Unavailable Care Team Providers Care Home Energy Auditor Name Role Phone Carisa Pastor CP Unavailable [...] exacerbation J44.1 Active Problem Coronary atherosclerosis of [place] coronary artery 414.01 Active Problem Diabetes Mellitus Type 2, not stated as uncontrolled 250.00 Active Problem Coronary atherosclerosis of unspecified type of vessel, [place] or graft 414.00 Active Problem Coronary atherosclerosis of [place] coronary artery 414.01 Active Problem COPD 496 Active Problem Diabetes mellitus without mention of complication, type II or unspecified type, uncontrolled 250.02 Active Problem Acute thromboembolism of deep veins of lower extremity I82.409 Active Problem Mixed hyperlipidemia E78.2 Active Problem Impotence of organic origin 607.84 Active Medications Medication Code System Code Instructions Start Date End Date Status Dosage Viagra [facility] [address]-19 100 MG Orally Once a day Oct 08, 2013 1 tablet as needed Results No Known Results Summary Purpose [employer] Submission
--- OUTSIDE RECORDS SUMMARY | 2016-11-27 22:05 | XMS REPORT ---
Author Author Lynne Lanier Organization [employer] Address Unknown Phone Unavailable Care Team Providers Care Director Child Name Role Phone Lynne Lanier CP Unavailable Allergies No Known Allergies Problems Problem Type Condition Code Onset Dates Condition Status Problem Acute venous embolism and thrombosis of unspecified deep vessels of lower extremity 453.40 Active Problem Tobacco abuse V15.82 Active Problem Impotence of organic origin 607.84 Active Problem Coronary atherosclerosis of unspecified type of vessel, [place] or graft 414.00 Active Problem Coronary atherosclerosis of [place] coronary artery 414.01 Active Problem Personal history of venous thrombosis and embolism V12.51 Active Problem Anticoagulation therapy V58.61 Active Problem Congestive heart failure, unspecified 428.0 Active Problem Coronary atherosclerosis of [place] coronary artery 414.01 Active Problem Diabetes Mellitus Type 2, not stated as uncontrolled 250.00 Active Problem Mixed hyperlipidemia 272.2 Active Problem COPD 496 Active Problem Diabetes mellitus without mention of complication, type II or unspecified type, uncontrolled 250.02 Active Medications No Known Medications Results No Known Results Summary Purpose [employer] Submission
--- OUTSIDE RECORDS SUMMARY | 2016-11-27 22:05 | XMS REPORT ---
Author Author Lynne Lanier Organization [employer] Address Unknown Phone Unavailable Care Team Providers Care Health Safety Coordinator Name Role Phone Lynne Lanier CP [...]
--- OUTSIDE RECORDS SUMMARY | 2016-11-27 22:05 | XMS REPORT ---
Author Author Lynne Lanier Organization [employer] Address Unknown Phone Unavailable Care Team Providers Care Citrix Lead Name Role Phone Lynne Lanier CP Unavailable Allergies No Known Allergies Problems Problem Type Condition ICD-9 Code Onset Dates Condition Status Problem Acute venous embolism and thrombosis of unspecified deep vessels of lower extremity 453.40 Active Problem Tobacco abuse V15.82 Active Problem Impotence of organic origin 607.84 Active Problem Coronary atherosclerosis of unspecified type of vessel, [place] or graft 414.00 Active Problem Coronary atherosclerosis of [place] coronary artery 414.01 Active Problem Personal history of venous thrombosis and embolism V12.51 Active Problem Anticoagulation therapy V58.61 Active Problem Congestive heart failure, unspecified 428.0 Active Problem Coronary atherosclerosis of [place] coronary artery 414.01 Active Problem Diabetes Mellitus [...] Instructions Start Date End Date Status Dosage Atorvastatin Calcium [facility] [address]-51 40 MG Orally Once a day 1 tablet Warfarin Sodium [facility] [address]-20 5MG Orally as directed take 1 tablet every day exept Wed take 1.5 tablets for a dose of 7.5mg Potassium Bicarb-Citric Acid [facility] [address]-95 20 MEQ Orally Once a day 1 tablet Budesonide [facility] [address]-55 Inhalation Twice a day not defined Lantus SoloStar [facility] [address]-44 100 UNIT/ML Subcutaneous Once a day Nov 19, 2014 15 units Metoprolol Tartrate [facility] [address]-59 25 MG Orally Twice a day 1 tablet ProAir HFA [facility] [address]-87 108 (90 Base) MCG/ACT Inhalation every 4 hrs February 11, 2015 2 puffs as needed Metformin HCl [facility] [address]-59 500 MG Orally Twice a day February 18, 2014 1 tablet with meals Albuterol Sulfate [facility] [address]-74 1.25 MG/3ML Inhalation qid Oct 12, 2014 3 ml as needed Ventolin HFA [facility] [address]-71 108 (90 Base) MCG/ACT Inhalation every 4 hrs Oct 23, 2013 2 puffs as needed GlyBURIDE [facility] [address]-75 10 mg Orally Once a day TAKE ONE TABLET BY MOUTH ONCE DAILY Procedures Procedure Coding System Code Date PROTIME INR, IN HOUSE CPT-4 99452 May 27, 2015 Results No Known Results Summary Purpose [employer] Submission
--- OUTSIDE RECORDS SUMMARY | 2016-11-27 22:05 | XMS REPORT ---
Author Author Carisa Pastor [facility] [employer] Address Unknown Phone Unavailable Care Team Providers Care Wool Handler Name Role Phone Carisa Pastor CP Unavailable [...] Coronary atherosclerosis of unspecified type of vessel, [place] or graft 414.00 Active Problem Coronary atherosclerosis of [place] coronary artery 414.01 Active Problem Personal history of venous thrombosis and embolism V12.51 Active Problem Anticoagulation therapy V58.61 Active Problem Congestive heart failure, unspecified 428.0 Active Problem Coronary atherosclerosis of [place] coronary artery 414.01 Active Problem Diabetes Mellitus Type 2, not stated as uncontrolled 250.00 Active Assessment Localized edema R60.0 Active Assessment Heart failure, unspecified I50.9 Active Assessment Other specified peripheral vascular diseases I73.89 Active Assessment Personal history of other venous thrombosis and embolism Z86.718 Active Assessment Mixed hyperlipidemia E78.2 Active Problem Mixed hyperlipidemia 272.2 Active Assessment Type 2 diabetes mellitus with hyperglycemia E11.65 Active Problem COPD 496 Active Assessment care home (current) use of anticoagulants Z79.01 Active Problem Diabetes mellitus without mention of complication, type II or unspecified type, uncontrolled 250.02 Active Medications Medication Code System Code Instructions Start Date End Date Status Dosage Albuterol Sulfate [facility] [address]-54 1.25 MG/3ML Inhalation qid Oct 12, 2014 3 ml as needed GlyBURIDE [facility] [address]-87 5 MG Orally Once a day TAKE 2 TABLET BY MOUTH ONCE DAILY Lantus SoloStar [facility] [address]-55 100 UNIT/ML Subcutaneous Once a day Nov 19, 2014 15 units ProAir HFA [facility] [address]-59 108 (90 Base) MCG/ACT Inhalation every 4 hrs February 11, 2015 2 puffs as needed Potassium Bicarb-Citric Acid [facility] [address]-29 20 MEQ Orally Once a day 1 tablet Warfarin Sodium [facility] [address]-74 5MG Orally as directed take 1 tablet daily except saturday, saturday, saturday take 1.5 tablets Metoprolol Tartrate [facility] [address]-47 25 MG Orally Twice a day 1 tablet Budesonide [facility] [address]-34 Inhalation Twice a day not defined Bumetanide [facility] [address]-43 1 MG Orally Twice every day Aug 23, 2015 1 tablet Ventolin HFA [facility] [address]-06 108 (90 Base) MCG/ACT Inhalation every 4 hrs Oct 23, 2013 2 puffs as needed Atorvastatin Calcium [facility] [address]-00 40 MG Orally Once a day 1 tablet Metformin HCl [facility] [address]-66 500 MG Orally Twice a day February 18, 2014 1 tablet with meals Procedures Procedure Coding System Code Date OFFICE VISIT, EST-LOW COMPLEXITY (15 MIN.) CPT-4 18129 Oct 20, 2015 Vital Signs Date/Time: Oct 20, 2015 Height 71.5 in Weight 209.12 lbs Temperature 97.6 F Blood Pressure Diastolic 74 mm Hg Blood Pressure Systolic 114 mm Hg Cardiac Monitoring Heart Rate 64 /min BMI 28.76 Index Respiratory Rate 16 /min Results No Known Results Summary Purpose [employer] Submission
--- OUTSIDE RECORDS SUMMARY | 2016-11-27 22:05 | XMS REPORT ---
Author Author Lynne Lanier Organization [employer] Address Unknown Phone Unavailable Care Team Providers Care Lightning Rod Installer Name Role Phone Lynne Lanier CP Unavailable Allergies No Known Allergies Problems Problem Type Condition Code Onset Dates Condition Status Problem Acute venous embolism and thrombosis of unspecified deep vessels of lower extremity 453.40 Active Problem Tobacco abuse V15.82 Active Problem Impotence of organic origin 607.84 Active Problem Coronary atherosclerosis of unspecified type of vessel, [place] or graft 414.00 Active Problem Coronary atherosclerosis of [place] coronary artery 414.01 Active Problem Personal history of venous thrombosis and embolism V12.51 Active Problem Anticoagulation therapy V58.61 Active Problem Congestive heart failure, unspecified 428.0 Active Problem Coronary atherosclerosis of [place] coronary artery 414.01 Active Problem Diabetes Mellitus Type 2, not stated as uncontrolled 250.00 Active Problem Mixed hyperlipidemia 272.2 Active Problem COPD 496 Active Problem Diabetes mellitus without mention of complication, type II or unspecified type, uncontrolled 250.02 Active Medications No Known Medications Results No Known Results Summary Purpose [employer] Submission
--- OUTSIDE RECORDS SUMMARY | 2016-11-27 22:05 | XMS REPORT | Continuity of Care Document ---
Author Author [facility] Organization [facility] Address Unknown Phone Unavailable Support Name Relationship Address Phone HELGA KITCHEN MD Caregiver [address] [place] [address] АЛЕКСАНДР MORAN APRN Caregiver [facility] Unknown [phone] KEN SIFUENTES MD Caregiver [address] [place] [address] [place] [id number] STEPHEN MENG Next Of Kin [address] [id number] CP Insurance Providers Payer Name Policy Number Subscriber Name Relationship Self Pay Young Silva 17 Self Chief Complaint and Reason for Visit Chief Complaint Dyspnea/Respdistress Reason for Visit [id number] Problems Medical Problems Problem Onset Date Status [...] to prior anticoagulant medication ingestion Unknown Active Medications Medication Dose Route Sig Days/Qty Instructions Order Date Discontinued Date Status Insulin Lispro 7 U SQ BEFORE MEALS 09/19/13 08/30/14 Discontinued Warfarin Sodium 7.5 Mg PO DAILY 09/20/13 Active [Insulin] 20 Unit BEDTIME 12/04/13 08/30/14 Discontinued [Metformin] 500 Mg TWICE A DAY 08/30/14 Active [Glyburide] 25 DAILY 08/30/14 Active Furosemide 20 Mg PO DAILY 30 Qty 09/01/14 10/09/14 Discontinued Lisinopril 5 Mg PO BEDTIME For HYPERTENSION [...] HOURS PRN DYSPNEA 1 Qty 10/09/14 Active Social History Social History Problem Response Recorded Date/Time Hx Substance Use No 10/09/2014 8:45pm Hx Alcohol Use No 10/09/2014 8:45pm Has the pt used tobacco in the [...] Up App[facility]ments[facility] week [phone] 09/08 8:45 Recommend check BMP due to MICHAEL use Dr Hassan in 2-3 weeks for cardiac evaluation [phone] 09/15 1:00 Patient Instructions: Please avoid Tobacco products Condition at time of discharge: Good Plan of Care Discharge Date 09/01/14 12:50pm Disposition 02 TO [facility] Condition at Discharge Stable Instructions/Education Provided [facility] Congestive Heart Failure Prescriptions See Medications Section Referrals HELGA KITCHEN MD Functional Status Query Response Date Recorded Physical Hygiene Self October 09, 2014 8:45pm Disabilities Visual October 09, 2014 8:45pm Devices Used Glasses October 09, 2014 8:45pm Dressing Self October 09, 2014 8:45pm Ambulation Self October 09, 2014 8:45pm Diet Self October 09, 2014 8:45pm Mental Status Alert October 09, 2014 10:28pm Disabilities Visual October 09, 2014 8:45pm Devices Used Glasses October 09, 2014 8:45pm Physical Hygiene Self October 09, 2014 8:45pm Dressing Self October 09, 2014 8:45pm Ambulation Self October 09, 2014 8:45pm Diet Self October 09, 2014 8:45pm Allergies, Adverse Reactions, Alerts Allergen Type Severity Reaction Status Last Updated Penicillin Adverse Reaction Unknown GET SICK Active 10/09/14 "MYCINS" Allergy Unknown Active 09/19/13 Immunizations Name Given Type Hx Influenza Vaccination Y AUG 2014 Historical Hx Pneumococcal Vaccination Y 09/2014 Historical Hx Tetanus, Diptheria, Pertussis Yes Historical Hx Influenza Vaccination Y AUG 2014 Historical Hx Tetanus, Diptheria, Pertussis Yes Historical Vital Signs Acute Vital Signs Vital Response Date/Time Temperature (Fahrenheit) 97.6 deg F (96.8 - 99.1) Temperature (Calculated Celsius) 36.91808 degrees C (36.0 - 37.3) Pulse Rate (adult) 89 bpm (60 - 100) Respiratory Rate 24 breaths/min (10 - 20) O2 Sat by Pulse Oximetry 91 % (90 - 100) Oxygen Flow Rate 0.5 L/min Blood Pressure 158/96 mm Hg Height 6 ft 0 in Weight 219 lb Body Mass Index 29.0 kg/m^2 Results Test Source Date Result Interp. Ref. Range Comments Activated Partial Thromboplast Time October 09, 2014 8:47pm 39.8 SEC H 24-36 Ordering r/o VTE Yes Alanine Aminotransferase (ALT/SGPT) October 09, 2014 8:48pm 78 U/L H 21 -72 Albumin October 09, 2014 8:48pm 3.9 G/DL N 3.5-5.0 Albumin/Globulin Ratio October 09, 2014 8:48pm 1.4 RATIO N 1.1-2.2 Alkaline Phosphatase October 09, 2014 8:48pm 51 U/L N 38-126 Anion Gap October 09, 2014 8:48pm 10 MEQ/L N 5-15 Aspartate Amino Transf (AST/SGOT) October 09, 2014 8:48pm 42 U/L N 17- 59 BUN/Creatinine Ratio October 09, 2014 8:48pm 21 RATIO N 6-26 Band Neutrophils # August 31, 2014 4:56am 0.1 T/MM3 - Band Neutrophils % August 31, 2014 4:56am 1.0 % N 0-6 Basophils # (Auto) October 09, 2014 8:48pm 0.0 T/MM3 N 0-0.2 Basophils (%) (Auto) October 09, 2014 8:48pm 0.7 % N 0-2 Blood Urea Nitrogen October 09, 2014 8:48pm 17.0 MG/DL N 9-20 Calcium Level October 09, 2014 8:48pm 8.9 MG/DL N 8.4-10.2 Calculated Osmolality October 09, 2014 8:48pm 287 MOSM/KG H 261-280 Carbon Dioxide Level October 09, 2014 8:48pm 29 MEQ/L N 22-30 Chloride Level October 09, 2014 8:48pm 107 MEQ/L N 98-107 Cholesterol Level December 31, 2011 1:45pm 260 MG/DL H 132-199 Cholesterol/HDL Ratio December 31, 2011 1:45pm 7.0 RATIO H 0-5.0 Creatinine October 09, 2014 8:48pm 0.8 MG/DL N 0.8-1.5 D-Dimer October 09, 2014 8:47pm 186 NG/ML N 0-230 <230 NG/ML D-DU= PRESUMPTIVE NEGATIVE FOR PE OR DVT>230 NG/ML D-DU=ADDITIONAL EVAL FOR PE OR DVT RECOMMENDED Eosinophils # (Auto) October 09, 2014 8:48pm 0.1 T/MM3 N 0-0.5 Eosinophils (%) (Auto) October 09, 2014 8:48pm 1.1 % N 0-4 Globulin October 09, 2014 8:48pm 2.7 G/DL N 2.4-3.6 Glucose Level October 09, 2014 8:48pm 172 MG/DL H 75-110 Hematocrit October 09, 2014 8:48pm 41.3 % N 41-53 Hemoglobin October 09, 2014 8:48pm 13.2 GM/DL L 13.5-17.5 Hemoglobin A1c August 31, [...] 1:45pm 179.4 H 66-159 Lymphocytes # (Auto) October 09, 2014 8:48pm 1.4 T/MM3 N 1-4.8 Lymphocytes # (Manual) September 01, 2014 5:13am 1.2 T/MM3 N 1-4.8 Lymphocytes % (Manual) September 01, 2014 5:13am 12.0 % L 23-45 Lymphocytes (%) (Auto) October 09, 2014 8:48pm 31.3 % N 23-45 Mean Corpuscular Hemoglobin October 09, 2014 8:48pm 30.1 UUG N 26-34 Mean Corpuscular Hemoglobin Concent October 09, 2014 8:48pm 32.0 GM/DL N 31-37 Mean Corpuscular Volume October 09, 2014 8:48pm 94.3 UM3 N 80-100 Mean Platelet Volume October 09, 2014 8:48pm 9.8 UM3 N 9.4-12.4 Monocytes # (Auto) October 09, 2014 8:48pm 0.6 T/MM3 N 0-0.8 Monocytes # (Manual) September 01, 2014 5:13am 0.1 T/MM3 N 0-0.8 Monocytes % (Manual) September 01, 2014 5:13am 1.0 % N 0-9.0 Monocytes (%) (Auto) October 09, 2014 8:48pm 12.6 % H 0-9.0 Neutrophils # (Auto) October 09, 2014 8:48pm 2.4 T/MM3 N 1.8-7.7 Neutrophils # (Manual) September 01, 2014 5:13am 9.0 T/MM3 H 1.8-7.7 Neutrophils % (Manual) September 01, 2014 5:13am 87.0 % H 33-66 Neutrophils (%) (Auto) October 09, 2014 8:48pm 53.9 % N 33-66 Platelet Count October 09, 2014 8:48pm 132 T/MM3 N 130-400 Potassium Level October 09, 2014 8:48pm 4.7 MEQ/L N 3.6-5 Prealbumin August 30, 2014 6:30am 18.5 MG/DL N 17.6-36.0 COMMENT blood in lab Prostate Specific Antigen Screen August 15, 2009 9:15am 0.53 NG/ML N 0- 4.0 Prothromb Time International Ratio October 09, 2014 8:47pm 3.78 H 0.81- 1.09 THERAPUTIC RANGE=2.00-3.00 FOR ANTI-THROMBOSIS THERAPUTIC RANGE=2.50- 3.50 FOR IMPLANTED VALVE RDW Standard Deviation October 09, 2014 8:48pm 48.9 FL N 36.9-50.2 Red Blood Count October 09, 2014 8:48pm 4.38 M/MM3 L 4.50-5.90 Sodium Level October 09, 2014 8:48pm 146 MEQ/L H 134-144 Tests Not Done March 09, 2009 8:42pm Not done - Has specimen been collected/obtained? Y Thyroid Stimulating Hormone (TSH) August 30, 2014 6:30am 2.09 MIU/L N 0.47-4.68 COMMENT blood in lab Total Bilirubin October 09, 2014 8:48pm 0.60 MG/DL N 0.20-1.30 Total Protein October 09, 2014 8:48pm 6.6 G/DL N 6.3-8.2 Triglycerides Level December 31, 2011 1:45pm 218 MG/DL H 40-160 Troponin I October 09, 2014 8:48pm 0.069 ng/ml N 0-0.12 Urine Bilirubin August 30, 2014 11:00am [...] previously reported as: SEND OUT Urine Specific [place] August 30, 2014 11:00am 1.010 L - [...] COMMENT blood in lab White Blood Count October 09, 2014 8:48pm 4.5 T/MM3 N 4.5-11.0 Chemistry Specimen Hemolysis October 09, 2014 8:48pm < 15 0-25 0-25 : No Hemolysis.26-70: [...] Report January 02, 2012 8:27am REFERENCE LAB [id number] - HDL Cholesterol Direct December 31, 2011 1:45pm 37 MG/DL L 40-60 Turbidity October 09, 2014 8:48pm < 20 0-20 Glomerular Filtration Rate Calc October 09, 2014 8:48pm 99 - Immature Granulocyte # (Auto) October 09, 2014 8:48pm 0.02 T/MM3 N 0.00 -0.03 Immature Granulocyte % (Auto) October 09, 2014 8:48pm 0.4 % N 0.0-0.5 Venous Blood Lactate August 30, 2014 7:14am 0.9 MMOL/L N 0.6-2.2 Icterus Index October 09, 2014 8:48pm < 2 0-7 UA-Qkd-C-Type Natriuretic Peptide October 09, 2014 8:48pm 79327 PG/ML H 0-175 Rule in cut points: <50 years old=450; 50-75 years old=900; >75 years old=1800; When utilizing ProBNP rule-in cut points, adjustment for impaired renal function is typically not required. Blood Culture Blood August 30, 2014 7:14am NO GROWTH AFTER 5 DAYS Gram Stain Sputum-Induced Sputum March 08, 2008 3:14pm Name: YOUNG SILVA Unit #: [id number] : [id number] Sex: M Loc / Svc: ED DOS: 09/15/14 Signed Report #: [id number] DIAGNOSTIC IMAGING REPORT TYPE OF EXAM: CHEST, PA & LATERAL Dictated By: VIRAJ STILES MD INDICATION: ITS.REASON: hemoptysis CHEST 2-VIEWS UPRIGHT (PA & LAT): COMPARISON: August 30, 2014 FINDINGS: Interstitial prominence is present, but decreased from the comparison study. No new areas of focal airspace consolidation, effusion or pneumothorax. Cardiac silhouette remains mildly enlarged. The central pulmonary arteries are severely enlarged, but unchanged. Mediastinal contours are stable. Old bilateral rib fractures. Impression: No focal pneumonia. Mild pulmonary vascular congestion. Enlargement of the central pulmonary arteries suggesting pulmonary arterial hypertension. . Procedures No known history of procedures. Encounters Encounter Location Date/Time Departed Emergency Room [facility] 10/09/14 8:16pm Departed Emergency Room [facility] 09/15/14 6:00pm Discharged Inpatient [facility] 08/30/14 8:13am Recent Diagnosis
--- OUTSIDE RECORDS SUMMARY | 2016-11-27 22:05 | XMS REPORT ---
Author Author Lynne Lanier [facility] eClinicalWorks Address Unknown Phone Unavailable Care Team Providers Care Veterans Employment Representative Name Role Phone Lynne Lanier CP Unavailable Allergies, Adverse Reactions, Alerts Substance Reaction Event Type Penicillin Info Not Available Drug Allergy Problems Problem Type Condition ICD-9 Code Onset Dates Condition Status Assessment Diabetes mellitus without mention of complication, type II or unspecified type, uncontrolled 250.02 Active Assessment COPD 496 Active Problem Tobacco abuse V15.82 Active Problem Impotence of organic origin 607.84 Active Problem Congestive heart failure, unspecified 428.0 Active Assessment Congestive heart failure, unspecified 428.0 Active Assessment Acute venous embolism and thrombosis of unspecified deep vessels of lower extremity 453.40 Active Problem Acute venous embolism and thrombosis of unspecified deep vessels of lower extremity 453.40 Active Problem Diabetes mellitus without mention of complication, type II or unspecified type, uncontrolled 250.02 Active Medications Medication Code System Code Instructions Start Date End Date Status Dosage Advair Diskus [facility] [place] [address]-79 250-50 MCG/DOSE Inhalation Twice a day May 25, 2014 Active 1 puff Metformin HCl [facility] [place] [address]-97 500 MG Orally Twice a day February 18, 2014 Active 1 tablet with meals Ventolin HFA [facility] [place] [address]-71 108 (90 Base) MCG/ACT Inhalation every 4 hrs Oct 23, 2013 Active 2 puffs as needed GlyBURIDE [facility] [place] [address]-47 5MG Orally Once a day Active TAKE ONE TABLET BY MOUTH ONCE DAILY Benadryl [facility] [place] [address]-80 25 MG Orally takesp in am 4 ca Active 1 capsule as needed Warfarin Sodium [facility] [place] [address]-03 7.5mg Orally every day Active 1 tablet Lasix [facility] [place] [address]-29 20 MG Orally Once a day Oct 11, 2014 Active 1 tablet Albuterol Sulfate [facility] [place] [address]-76 1.25 MG/3ML Inhalation qid Oct 12, 2014 Active 3 ml as needed Warfarin Sodium [facility] [place] [address]-13 5 MG Orally every day Active 1 tablet Viagra [facility] [place] [address]-73 100 MG Orally Once a day Oct 08, 2013 Active 1 tablet as needed Lisinopril [facility] [place] [address]-10 10 MG Orally Once a day Sep 20, 2014 Active 1 tablet Procedures Procedure Coding System Code Date HEMOGLOBIN A1C, IN HOUSE CPT-4 74839 Oct 12, 2014 OFFICE VISIT, EST-LOW COMPLEXITY (15 MIN.) CPT-4 33448 Oct 12, 2014 PROTIME INR, IN HOUSE CPT-4 61980 Oct 12, 2014 Vital Signs Date/Time: Oct 12, 2014 Height 71.5 inches Weight 217.8 lbs Temperature 98.1 F Blood Pressure Diastolic 82 mm Hg Blood Pressure Systolic 124 mm Hg Cardiac Monitoring Heart Rate 78 Beats per Minute BMI 29.95 Index Respiratory Rate 18 per Minute Results Name Result Date Reference Range Unit In House Hemoglobin A1c Summary Purpose eClinicalWorks Submission
--- OUTSIDE RECORDS SUMMARY | 2016-11-27 22:05 | XMS REPORT ---
Author Author Moreno León Organization [employer] Address Unknown Phone Unavailable Care Team Providers Care Pet Adoption Counselor Name Role Phone Moreno León CP Unavailable [...] therapy V58.61 Active Problem Coronary atherosclerosis of [place] coronary artery 414.01 Active Problem Impotence of organic origin 607.84 Active Problem Acute venous embolism and thrombosis of unspecified deep vessels of lower extremity 453.40 Active Problem Congestive heart failure, unspecified 428.0 Active Problem Tobacco abuse V15.82 Active Medications No Known Medications Results No Known Results Summary Purpose eClinicalWorks Submission
[2016-11-27 22:06] VITALS: Ht 182.9 cm; Wt 96.3 kg
--- OUTSIDE RECORDS SUMMARY | 2016-11-27 22:06 | XMS REPORT ---
Author Ata Heck [facility] eClinicalWorks Address Unknown Phone Unavailable Care Team Providers Care Glue Clamp Operator Name Role Phone Ata Ramirez CP Unavailable Allergies No Known Allergies Problems [...] Start Date End Date Status Dosage Lasix [facility] [address]-79 20 MG Orally Once a day Oct 11, 2014 Active 1 tablet Advair Diskus [facility] [address]-45 250-50 MCG/DOSE Inhalation Twice a day May 25, 2014 Active 1 puff Ventolin HFA [facility] [address]-72 108 (90 Base) MCG/ACT Inhalation every 4 hrs Oct 23, 2013 Active 2 puffs as needed Benadryl [facility] [address]-34 25 MG Orally takesp in am 4 ca Active 1 capsule as needed Viagra [facility] [address]-42 100 MG Orally Once a day Oct 08, 2013 Active 1 tablet as needed Metformin HCl [facility] [address]-10 500 MG Orally Twice a day February 18, 2014 Active 1 tablet with meals GlyBURIDE [facility] [address]-70 5MG Orally Once a day Active TAKE ONE TABLET BY MOUTH ONCE DAILY Warfarin Sodium [facility] [address]-97 7.5mg Orally every day Active 1 tablet Lisinopril [facility] [address]-75 10 MG Orally Once a day Sep 20, 2014 Active 1 tablet Vital Signs Date/Time: Sep 20, 2014 Height 71.5 inches Weight 217 lbs Temperature 98.3 F Blood Pressure Diastolic 84 mm Hg Blood Pressure Systolic 148 mm Hg Cardiac Monitoring Heart Rate 84 Beats per Minute BMI 29.84 Index Oximetry 96 % Respiratory Rate 20 per Minute Results No Known Results Summary Purpose eClinicalWorks Submission
--- OUTSIDE RECORDS SUMMARY | 2016-11-27 22:06 | XMS REPORT | Referral Summary ---
Author Author [facility] Organization [facility] Address Unknown Phone Unavailable Care Team Providers Care Shale Planer Operator Helper Name Role Phone Salma Lanier Primary Care Physician [phone] Encounter [facility] [id number] Date(s): 04/13/15 - 04/15/15 [facility] [address] [place] [address] Final: CONGESTIVE HEART FAILURE, UNSPECIFIED Final: Acute Kidney Failure, Unspecified Final: OTHER SPECIFIED FORMS OF CHRONIC ISCHEMIC HEART DISEASE Final: CORONARY ATHEROSCLEROSIS OF UNSPECIFIED TYPE OF VESSEL, YAVAPAI-APACHE OR GRAFT Final: CHRONIC AIRWAY OBSTRUCTION, NOT ELSEWHERE CLASSIFIED Final: Diabetes mellitus with neurological manifestations, type II or unspecified type, not stated as uncontrolled Final: UNSPECIFIED ESSENTIAL HYPERTENSION Final: DISORDERS OF MAGNESIUM METABOLISM Final: ACUTE MYOCARDIAL INFARCTION, UNSPECIFIED SITE, INITIAL EPISODE OF CARE Final: POLYNEUROPATHY IN DIABETES Final: POSTSURGICAL AORTOCORONARY BYPASS STATUS Final: Long-Term (Current) Use of Anticoagulants Final: OTHER SPECIFIED ANALGESICS AND ANTIPYRETICS CAUSING ADVERSE EFFECTS IN THERAPEUTIC USE Final: OTHER AND UNSPECIFIED AGENTS PRIMARILY AFFECTING THE CARDIOVASCULAR SYSTEM CAUSING ADVERSE EFFECTS IN THERAPEUTIC USE Discharge Disposition: 01-Home or Self Care Attending Physician: Navarro Conn MD Admitting Physician: Navarro Conn MD Vital Signs Most recent to 1 oldest [Reference Range]: Temperature Oral 37.0 degC [35.8-37.3 degC] (04/15/15 3:30 PM) Temperature Temporal 37.3 degC Artery [36.3-37.8 (04/15/15 11:50 AM) degC] Peripheral Pulse 96 bpm Rate [60-100 bpm] (04/15/15 3:30 PM) Heart Rate Monitored 73 bpm [60-100 bpm] (04/15/15 11:50 AM) Respiratory Rate 18 br/min [14-20 br/min] (04/15/15 3:30 PM) Blood Pressure 116/91 mmHg [90-140/60-90 mmHg] (04/15/15 3:30 PM) Mean Arterial 104 mmHg Pressure, Cuff (04/15/15 9:00 AM) SpO2 94 % (04/15/15 3:30 PM) Problem List Condition Effective Dates Status [...] to 1 oldest [Reference Range]: WBC [4.8-10.8 6.7 10*3/uL 10*3/uL] (04/13/15 7:40 PM) RBC [4.60-6.20 4.47 10*6/uL 10*6/uL] *LOW* (04/13/15 7:40 PM) Hgb [14.0-18.0 12.7 gm/dL gm/dL] *LOW* (04/13/15 7:40 PM) Hct [42.0-52.0 %] 40.1 % *LOW* (04/13/15 7:40 PM) MCV [82.0-99.0 fL] 89.7 fL (04/13/15 7:40 PM) MCH [27.0-32.0 pg] 28.4 pg (04/13/15 7:40 PM) MCHC [32.0-36.0 31.7 gm/dL gm/dL] *LOW* (04/13/15 7:40 PM) RDW [11.5-14.5 %] 17.2 % *HI* (04/13/15 7:40 PM) Platelet [150-400 204 10*3/uL 10*3/uL] (04/13/15 7:40 PM) MPV [9.4-12.3 fL] 9.3 fL *LOW* (04/13/15 7:40 PM) Coagulation Most recent to 1 oldest [Reference Range]: INR [0.9-1.2] 3.7 *HI* (04/15/15 5:11 AM) Chemistry Most recent to 1 oldest [Reference Range]: Sodium Lvl [136-144 132 mEq/L mEq/L] *LOW* (04/15/15 11:26 AM) Potassium Lvl 4.7 mEq/L [3.6-5.1 mEq/L] (04/15/15 11:26 AM) Chloride [99-109 96 mEq/L mEq/L] *LOW* (04/15/15 11: AM) CO2 [22-32 mEq/L] 28 mEq/L (04/15/15 11:26 AM) AGAP [3-20] 8 (04/15/15 11:26 AM) BUN [4-20 mg/dL] 56 mg/dL *HI* (04/15/15 11:26 AM) Glucose Lvl [70-100 363 mg/dL mg/dL] *HI* (04/15/15 11: AM) Creatinine Lvl 1.63 mg/dL [0.64-1.27 mg/dL] *HI* (04/15/15 11:26 AM) eGFR [>60] 43 1 *ABN* (04/15/15 11: AM) Calcium Lvl 8.4 mg/dL [8.6-10.0 mg/dL] *LOW* (04/15/15 11:26 AM) Albumin Lvl [3.5-4.8 3.2 gm/dL gm/dL] *LOW* (04/15/15 11: AM) Total Protein 6.2 gm/dL [6.1-7.9 gm/dL] (04/15/15 11: AM) Globulin [1.9-4.3 3.0 gm/dL gm/dL] (04/15/15 11: AM) ALT [17-63 U/L] 245 U/L *HI* (04/15/15 11: AM) AST [15-41 U/L] 225 U/L *HI* (04/15/15: AM) Alk Phos [26-104 48 U/L U/L] (04/15/15: AM) Bili Total [0.2-1.2 1.0 mg/dL 2 mg/dL] (04/15/15: AM) Magnesium Lvl 1.7 mg/dL [1.8-2.5 mg/dL] *LOW* (04/13/15 7:40 PM) BNP [0-99 pg/mL] 3018 pg/mL *HI* (04/15/15 11:25 AM) Troponin [<0.06 0.07 ng/mL 3 ng/mL] *HHI* (04/14/15 1:10 AM) Blood Glucose, 111 mg/dL Capillary [74-106 *HI* mg/dL] (04/14/15 9:10 PM) Chol [0-200 mg/dL] 107 mg/dL (04/14/15 1:10 AM) Trig [0-150 mg/dL] 59 mg/dL (04/14/15 1:10 AM) HDL [>40 mg/dL] 36 mg/dL *ABN* (04/14/15 1:10 AM) LDL [0-100 mg/dL] 59 mg/dL (04/14/15 1:10 AM) VLDL Cholesterol 12 mg/dL [0-30 mg/dL] (04/14/15 1:10 AM) Cardiac Risk 3.0 [0.0-5.7] (04/14/15 1:10 AM) TSH with Reflex Free 2.37 T4 [0.35-5.50] (04/13/15 7:40 PM) 1Result Comment: Multiply eGFR results by 1.21 for race. 2Result Comment: Naproxen, specifically the metabolite O-desmethylnaproxen, may cause spurious elevation in Total Bilirubin levels. 3Result Comment: Critical value called, and read-back verified. Called to Debbie Olson RN at 04/14/2015 01:44 Immunizations No data available for this section Procedures Procedure Date Related Diagnosis Body Site Bypass Graft Coronary Artery1 01/14/15 [place] Vein Endoscopic (Right)2 01/14/15 Pacemaker 1auto-populated from documented surgical case 2auto-populated from documented surgical case Social History Social History Type Response Smoking Status Former smoker Assessment and Plan No data available for this section
--- OUTSIDE RECORDS SUMMARY | 2016-11-27 22:06 | XMS REPORT ---
Author Author Lynne Lanier Organization [employer] Address Unknown Phone Unavailable Care Team Providers Care Frothing Machine Operator Name Role Phone Lynne Lanier CP [...]
--- OUTSIDE RECORDS SUMMARY | 2016-11-27 22:06 | XMS REPORT | Continuity of Care Document ---
Author Author [facility] Organization [facility] Address Unknown Phone Unavailable Support Name Relationship Address Phone ERICАЛЕКСАНДР COUGHLIN Salma HUDSON Caregiver [facility] Unknown [phone] FADIA MORRIS MD Caregiver [address] [place] [address] [place] [phone] STEPHEN MENG Next Of Kin [address] [place] [address] CP Insurance Providers Payer Name Policy Number Subscriber Name Relationship [facility] [id number] Young Silva 17 Self Problems Medical Problems Problem Onset Date Status [...] thromboembolism) 11/25/2014 Active COPD exacerbation Unknown Active Medications Medication Dose Route Sig [...] HOURS PRN DYSPNEA 1 Qty 10/09/14 Active Levofloxacin 1 Tab-Cap PO DAILY 7 Qty 12/27/14 Active Prednisone 10 Mg PO DIRECTED 24 Qty 5 Tablets by mouth daily for 2 days THEN, 12/27/14 Active Social History Social History Problem Response Recorded Date/Time Hx Substance Use No 12/27/2014 9:29am Hx Alcohol Use No 12/27/2014 9:29am Has the pt used tobacco in the last 12 months Yes 08/30/2014 10:36am Tobacco Usage none 08/30/2014 9:49am Query Response Start Date Stop Date Smoking Status Former smoker Hospital Discharge Instructions No hospital discharge instructions. Plan of Care No plan of care. Functional Status Query Response Date Recorded Physical Hygiene Self December 27, 2014 9:29am Disabilities None December 27, 2014 9:29am Devices Used None December 27, 2014 9:29am Dressing Self December 27, 2014 9:29am Ambulation Self December 27, 2014 9:29am Diet Self December 27, 2014 9:29am Mental Status Alert Oriented December 27, 2014 12:52pm Disabilities None December 27, 2014 9:29am Devices Used None December 27, 2014 9:29am Physical Hygiene Self December 27, 2014 9:29am Dressing Self December 27, 2014 9:29am Ambulation Self December 27, 2014 9:29am Diet Self December 27, 2014 9:29am Allergies, Adverse Reactions, Alerts Allergen Type Severity Reaction Status Last Updated Penicillin Adverse Reaction Unknown GET SICK Active 12/27/14 "MYCINS" Allergy Unknown Active 09/19/13 Immunizations Name Given Type Hx Influenza Vaccination Y AUG 2014 Historical Hx Pneumococcal Vaccination Y 09/2014 Historical Hx Tetanus, Diptheria, Pertussis Yes Historical Hx Influenza Vaccination Y AUG 2014 Historical Hx Tetanus, Diptheria, Pertussis Yes Historical Vital Signs Acute Vital Signs Vital Response Date/Time Temperature (Fahrenheit) 96.2 deg F (96.8 - 99.1) Temperature (Calculated Celsius) 35.68217 degrees C (36.0 - 37.3) Pulse Rate (adult) 85 bpm (60 - 100) Respiratory Rate 18 breaths/min (10 - 20) O2 Sat by Pulse Oximetry 92 % (90 - 100) Blood Pressure 139/99 mm Hg Height 6 ft 0 in Weight 226 lb Body Mass Index 30.0 kg/m^2 Results Test Source Date Result Interp. Ref. Range Comments Procalcitonin December 27, 2014 9:42am < 0.05 NG/ML - PCT </=0.5 ng/ mL - sepsis not likely;PCT >0.5 and </=2 ng/mL - sepsis possible; PCT >2 ng/mL - sepsis likely; PCT >/=10 ng/mL - systemic inflammatory response - sepsis or septic shock highly indicated. Activated Partial Thromboplast Time October 09, 2014 8:47pm 39.8 SEC H 24-36 Ordering r/o VTE Yes Alanine Aminotransferase (ALT/SGPT) December 27, 2014 9:42am 110 U/L H 21-72 Albumin December 27, 2014 9:42am 3.5 G/DL N 3.5-5.0 Albumin/Globulin Ratio December 27, 2014 9:42am 1.2 RATIO N 1.1-2.2 Alkaline Phosphatase December 27, 2014 9:42am 52 U/L N 38-126 Anion Gap December 27, 2014 9:42am 10 MEQ/L N 5-15 Aspartate Amino Transf (AST/SGOT) December 27, 2014 9:42am 52 U/L N 17- 59 BUN/Creatinine Ratio December 27, 2014 9:42am 16 RATIO N 6-26 Band Neutrophils # August 31, 2014 4:56am 0.1 T/MM3 - Band Neutrophils % August 31, 2014 4:56am 1.0 % N 0-6 Basophils # (Auto) December 27, 2014 9:42am 0.0 T/MM3 N 0-0.2 Basophils (%) (Auto) December 27, 2014 9:42am 0.6 % N 0-2 Blood Urea Nitrogen December 27, 2014 9:42am 14.0 MG/DL N 9-20 Calcium Level December 27, 2014 9:42am 9.0 MG/DL N 8.4-10.2 Calculated Osmolality December 27, 2014 9:42am 281 MOSM/KG H 261-280 Carbon Dioxide Level December 27, 2014 9:42am 29 MEQ/L N 22-30 Chemistry Specimen Hemolysis December 27, 2014 9:42am < 15 0-25 0-25 : No Hemolysis.26-70: [...] Phenytoin. Recommend specimen recollection. Chloride Level December 27, 2014 9:42am 105 MEQ/L N 98-107 Cholesterol Level December 31, 2011 1:45pm 260 MG/DL H 132-199 Cholesterol/HDL Ratio December 31, 2011 1:45pm 7.0 RATIO H 0-5.0 Creatinine December 27, 2014 9:42am 0.9 MG/DL N 0.8-1.5 D-Dimer October 09, 2014 8:47pm 186 NG/ML N 0-230 <230 NG/ML D-DU= PRESUMPTIVE NEGATIVE FOR PE OR DVT>230 NG/ML D-DU=ADDITIONAL EVAL FOR PE OR DVT RECOMMENDED Eosinophils # (Auto) December 27, 2014 9:42am 0.1 T/MM3 N 0-0.5 Eosinophils (%) (Auto) December 27, 2014 9:42am 1.7 % N 0-4 Globulin December 27, 2014 9:42am 2.9 G/DL N 2.4-3.6 Glomerular Filtration Rate Calc December 27, 2014 9:42am 86 - Glucometer September 01, 2014 10:08am 350 mg/dL H 75-110 Glucose Level December 27, 2014 9:42am 145 MG/DL H 75-110 HDL Cholesterol Direct December 31, 2011 1:45pm 37 MG/DL L 40-60 Hematocrit December 27, 2014 9:42am 42.2 % N 41-53 Hemoglobin December 27, 2014 9:42am 13.2 GM/DL L 13.5-17.5 Hemoglobin A1c August 31, 2014 4:56am 7.7 % H 6-7 <6.0 NON-DIABETIC RANGE6.0-7.0 ADA THERAPEUTIC RANGE >7.0 ACTION SUGGESTED Icterus Index December 27, 2014 9:42am < 2 0-7 Immature Granulocyte # (Auto) December 27, 2014 9:42am 0.02 T/MM3 N 0.00 -0.03 Immature Granulocyte % (Auto) December 27, 2014 9:42am 0.4 % N 0.0-0.5 Influenza Type A Antigen December 27, 2014 9:42am Negative - Negative for Flu A protein antigen. Assay sensitivity is90%. Influenza Type B Antigen December 27, 2014 9:42am Negative - Negative for Flu B protein antigen. Assay sensitivity is90%. LDL Cholesterol, Calculated December 31, 2011 1:45pm 179.4 H 66-159 Lab Scanned Report January 02, 2012 8:27am REFER[facility] LAB [id number] - Lymphocytes # (Auto) December 27, 2014 9:42am 1.8 T/MM3 N 1-4.8 Lymphocytes # (Manual) September 01, 2014 5:13am 1.2 T/MM3 N 1-4.8 Lymphocytes % (Manual) September 01, 2014 5:13am 12.0 % L 23-45 Lymphocytes (%) (Auto) December 27, 2014 9:42am 32.6 % N 23-45 Mean Corpuscular Hemoglobin December 27, 2014 9:42am 29.3 UUG N 26-34 Mean Corpuscular Hemoglobin Concent December 27, 2014 9:42am 31.3 GM/DL N 31-37 Mean Corpuscular Volume December 27, 2014 9:42am 93.6 UM3 N 80-100 Mean Platelet Volume December 27, 2014 9:42am 9.3 UM3 L 9.4-12.4 Monocytes # (Auto) December 27, 2014 9:42am 0.7 T/MM3 N 0-0.8 Monocytes # (Manual) September 01, 2014 5:13am 0.1 T/MM3 N 0-0.8 Monocytes % (Manual) September 01, 2014 5:13am 1.0 % N 0-9.0 Monocytes (%) (Auto) December 27, 2014 9:42am 12.3 % H 0-9.0 UT-Ebo-U-Type Natriuretic Peptide December 27, 2014 9:42am 71377 PG/ML H 0-175 Rule in cut points: <50 years old=450; 50-75 years old=900; >75 years old=1800; When utilizing ProBNP rule-in cut points, adjustment for impaired renal function is typically not required. Neutrophils # (Auto) December 27, 2014 9:42am 2.8 T/MM3 N 1.8-7.7 Neutrophils # (Manual) September 01, 2014 5:13am 9.0 T/MM3 H 1.8-7.7 Neutrophils % (Manual) September 01, 2014 5:13am 87.0 % H 33-66 Neutrophils (%) (Auto) December 27, 2014 9:42am 52.4 % N 33-66 Platelet Count December 27, 2014 9:42am 220 T/MM3 N 130-400 Potassium Level December 27, 2014 9:42am 4.4 MEQ/L N 3.6-5 Prealbumin August 30, 2014 6:30am 18.5 MG/DL N 17.6-36.0 COMMENT blood in lab Prostate Specific Antigen Screen August 15, 2009 9:15am 0.53 NG/ML N 0- 4.0 Prothromb Time International Ratio December 27, 2014 9:42am 2.17 H 0.81- 1.09 THERAPUTIC RANGE=2.00-3.00 FOR ANTI-THROMBOSIS THERAPUTIC RANGE=2.50- 3.50 FOR IMPLANTED VALVE RDW Standard Deviation December 27, 2014 9:42am 51.4 FL H 36.9-50.2 Red Blood Count December 27, 2014 9:42am 4.51 M/MM3 N 4.50-5.90 Sodium Level December 27, 2014 9:42am 144 MEQ/L N 134-144 Tests Not Done March 09, 2009 8:42pm Not done - Has specimen been collected/obtained? Y Thyroid Stimulating Hormone (TSH) August 30, 2014 6:30am 2.09 MIU/L N 0.47-4.68 COMMENT blood in lab Total Bilirubin December 27, 2014 9:42am 0.80 MG/DL N 0.20-1.30 Total Protein December 27, 2014 9:42am 6.4 G/DL N 6.3-8.2 Triglycerides Level December 31, 2011 1:45pm 218 MG/DL H 40-160 Troponin I December 27, 2014 9:42am 0.076 ng/ml N 0-0.12 Turbidity December 27, 2014 9:42am < 20 0-20 Urinalysis Comment August 30, [...] previously reported as: SEND OUT Urine Specific [place] August 30, 2014 11:00am 1.010 L - [...] 43.6 MG/DL H 0-28 Venous Blood Lactate December 27, 2014 9:42am 0.8 MMOL/L N 0.6-2.2 Vitamin B12 Level August 30, 2014 6:30am 563 PG/ML N 239-931 COMMENT blood in lab White Blood Count December 27, 2014 9:42am 5.4 T/MM3 N 4.5-11.0 Blood Culture Blood August 30, 2014 7:14am NO GROWTH AFTER 5 DAYS Gram Stain Sputum-Induced Sputum March 08, 2008 3:14pm Name: YOUNG SILVA Unit #: [id number] : [id number] Sex: M Loc / Svc: ED DOS: 12/27/14 Signed Report #: [id number] DIAGNOSTIC IMAGING REPORT TYPE OF EXAM: CHEST, PA & LATERAL Dictated By: VIRAJ STILES MD INDICATION: ITS.REASON: DYSPNEA, COUGH, HX COPD CHEST 2-VIEWS UPRIGHT (PA & LAT) COMPARISON: December 01, 2014 FINDINGS: Coarse interstitial markings consistent with the provided history of COPD are again noted. There is a small area of new focal consolidation in the posterior lung field overlying the lower thoracic spine seen on the lateral view only. It is difficult to determine whether this is in the right or left lower lobes. The remainder of the lung song are stable and grossly clear. No pneumothorax or effusion. Cardiomegaly remains with prominent central pulmonary arteries suggestive of pulmonary artery hypertension. Old bilateral rib fractures. Impression: Findings of COPD with a new subtle lower lobe infiltrate seen on the lateral view. . Procedures Procedure Status Date Provider(s) CHEST [...] completed 10/09/14 EMERGENCY DEPT VISIT completed 10/09/14 189721"INJECTION, FUROSEMIDE, UP TO 20 MG" completed 10/09/14 EXTREMITY STUDY completed 10/14/14 ROUTINE VENIPUNCTURE completed [...] completed 11/30/14 EMERGENCY DEPT VISIT completed 11/30/14 660883"INJECTION, METHYLPREDNISOLONE SODIUM SUCCINATE, UP TO completed Encounters Encounter Location Date/Time Registered Emergency Room [facility] 12/27/14 9:15am Departed Emergency Room [facility] 11/30/14 10:47pm Registered Clinic [facility] 10/14/14 1:39pm Departed Emergency Room [facility] 10/09/14 8:16pm Recent Diagnosis Acute Bronchitis
--- OUTSIDE RECORDS SUMMARY | 2016-11-27 22:06 | XMS REPORT ---
Author Author Lynne Lanier Organization [employer] Address Unknown Phone Unavailable Care Team Providers Care Customer Technical Services Manager Name Role Phone Lynne Lanier CP [...] Coronary atherosclerosis of unspecified type of vessel, [place] or graft 414.00 Active Problem Coronary atherosclerosis of [place] coronary artery 414.01 Active Problem Personal history [...] End Date Status Dosage Metformin HCl [facility] [address]-20 500 MG Orally Twice a day February 18, 2014 2 tablet with meals Warfarin Sodium [facility] [address]-13 5MG Orally as directed take 1 tablet every day exept Wed take 1.5 tablets for a dose of 7.5mg Budesonide [facility] [address]-43 Inhalation Twice a day not defined Albuterol Sulfate [facility] [address]-97 1.25 MG/3ML Inhalation qid Oct 12, 2014 3 ml as needed ProAir HFA [facility] [address]-54 108 (90 Base) MCG/ACT Inhalation every 4 hrs February 11, 2015 2 puffs as needed GlyBURIDE [facility] [address]-96 10 mg Orally Once a day TAKE ONE TABLET BY MOUTH ONCE DAILY Furosemide [facility] [address]-56 40 MG Orally Twice a day 1 tablet Atorvastatin Calcium [facility] [address]-10 40 MG Orally Once a day 1 tablet Benadryl [facility] [address]-58 25 MG Orally takesp in am 4 ca 1 capsule as needed Ventolin HFA [facility] [address]-13 108 (90 Base) MCG/ACT Inhalation every 4 hrs Oct 23, 2013 2 puffs as needed Metoprolol Tartrate [facility] [address]-79 25 MG Orally Twice a day 1 tablet Potassium Bicarb-Citric Acid [facility] [address]-74 20 MEQ Orally Once a day 1 tablet Lantus SoloStar [facility] [address]-76 100 UNIT/ML Subcutaneous Once a day Nov 19, 2014 15 units Lisinopril [facility] [address]-51 2.5 MG Orally Once a day 1 tablet Procedures Procedure Coding System Code Date PROTIME INR, IN HOUSE CPT-4 68388 March 07, 2015 Results No Known Results Summary Purpose [employer] Submission
--- OUTSIDE RECORDS SUMMARY | 2016-11-27 22:06 | XMS REPORT ---
Author Author Carisa Pastor Organization [employer] Address Unknown Phone Unavailable Care Team Providers Care Tag Machine Operator Name Role Phone Carisa Pastor CP Unavailable [...] of [place] coronary artery 414.01 Active Problem Personal history of venous thrombosis and embolism V12.51 Active Problem Anticoagulation therapy V58.61 Active Problem Congestive heart failure, unspecified 428.0 Active Problem Coronary atherosclerosis of [place] coronary [...]
--- OUTSIDE RECORDS SUMMARY | 2016-11-27 22:06 | XMS REPORT ---
Author Author Moreno León Organization [employer] Address Unknown Phone Unavailable Care Team Providers Care Mechanical Cad Drafter Name Role Phone Moreno León CP Unavailable [...] therapy V58.61 Active Problem Coronary atherosclerosis of [place] coronary artery 414.01 Active Problem Impotence of organic origin 607.84 Active Problem Acute venous embolism and thrombosis of unspecified deep vessels of lower extremity 453.40 Active Problem Congestive heart failure, unspecified 428.0 Active Problem Tobacco abuse V15.82 Active Medications No Known Medications Results No Known Results Summary Purpose [employer] Submission
--- OUTSIDE RECORDS SUMMARY | 2016-11-27 22:06 | XMS REPORT ---
Author Moreno Dugan Organization [employer] Address Unknown Phone Unavailable Care Team Providers Care Facility Manager Name Role Phone Moreno León CP [...] Coronary atherosclerosis of unspecified type of vessel, [place] or graft 414.00 Active Problem Coronary atherosclerosis of [place] coronary artery 414.01 Active Problem Personal history [...] Start Date End Date Status Dosage GlyBURIDE [facility] [address]-50 10 mg Orally Once a day TAKE ONE TABLET BY MOUTH ONCE DAILY Lantus SoloStar [facility] [address]-16 100 UNIT/ML Subcutaneous Once a day Nov 19, 2014 15 units Lisinopril [facility] [address]-43 2.5 MG Orally Once a day 1 tablet Albuterol Sulfate [facility] [address]-02 1.25 MG/3ML Inhalation qid Oct 12, 2014 3 ml as needed ProAir HFA [facility] [address]-99 108 (90 Base) MCG/ACT Inhalation every 4 hrs February 11, 2015 2 puffs as needed Warfarin Sodium [facility] [address]-94 5MG Orally as directed take 1 tablet saturday/saturday/saturday/. take one and one half tablet saturday/ saturday/saturday Atorvastatin Calcium [facility] [address]-51 40 MG Orally Once a day 1 tablet Budesonide [facility] [address]-89 Inhalation Twice a day not defined Benadryl [facility] [address]-60 25 MG Orally takesp in am 4 ca 1 capsule as needed Ventolin HFA [facility] [address]-48 108 (90 Base) MCG/ACT Inhalation every 4 hrs Oct 23, 2013 2 puffs as needed Furosemide [facility] [address]-67 40 MG Orally Twice a day 1 tablet Potassium Bicarb-Citric Acid [facility] [address]-98 20 MEQ Orally Once a day 1 tablet Metformin HCl [facility] [address]-73 500 MG Orally Twice a day February 18, 2014 2 tablet with meals Metoprolol Tartrate [facility] [address]-70 25 MG Orally Twice a day 1 tablet Procedures Procedure Coding System Code Date PROTIME INR, IN HOUSE CPT-4 70179 March 02, 2015 Results No Known Results Summary Purpose [employer] Submission
--- OUTSIDE RECORDS SUMMARY | 2016-11-27 22:06 | XMS REPORT ---
Author Author Lynne Lanier Organization [employer] Address Unknown Phone Unavailable Care Team Providers Care Depot Manager Name Role Phone Lynne Lanier CP Unavailable Allergies No Known Allergies Problems Problem Type Condition Code Onset Dates Condition Status Problem Acute venous embolism and thrombosis of unspecified deep vessels of lower extremity 453.40 Active Problem Tobacco abuse V15.82 Active Problem Impotence of organic origin 607.84 Active Problem Coronary atherosclerosis of unspecified type of vessel, [place] or graft 414.00 Active Problem Coronary atherosclerosis of [place] coronary artery 414.01 Active Problem Personal history of venous thrombosis and embolism V12.51 Active Problem Anticoagulation therapy V58.61 Active Problem Congestive heart failure, unspecified 428.0 Active Problem Coronary atherosclerosis of [place] coronary artery 414.01 Active Problem Diabetes Mellitus Type 2, not stated as uncontrolled 250.00 Active Assessment Mixed hyperlipidemia 272.2 Active Problem Mixed hyperlipidemia 272.2 Active Problem COPD 496 Active Problem Diabetes mellitus without mention of complication, type II or unspecified type, uncontrolled 250.02 Active Medications Medication Code System Code Instructions Start Date End Date Status Dosage Atorvastatin Calcium [facility] [address]-70 40 MG Orally Once a day 1 tablet Results No Known Results Summary Purpose [employer] Submission
--- OUTSIDE RECORDS SUMMARY | 2016-11-27 22:06 | XMS REPORT ---
Author Author Lynne Lanier Organization [employer] Address Unknown Phone Unavailable Care Team Providers Care Zipper Measurer Name Role Phone Lynne Lanier CP Unavailable [...] therapy V58.61 Active Problem Coronary atherosclerosis of [place] coronary artery 414.01 Active Problem Impotence of organic origin 607.84 Active Problem Acute venous embolism and thrombosis of unspecified deep vessels of lower extremity 453.40 Active Problem Congestive heart failure, unspecified 428.0 Active Problem Tobacco abuse V15.82 Active Medications Medication Code System Code Instructions Start Date End Date Status Dosage Warfarin Sodium [facility] [address]-48 5MG Orally Once daily 1 tablet every day except on Saturday and Saturday take 1.5 tablets for a dose of 7.5mg Results No Known Results Summary Purpose [employer] Submission
--- OUTSIDE RECORDS SUMMARY | 2016-11-27 22:06 | XMS REPORT ---
Author Author Carisa Pastor Organization [employer] Address Unknown Phone Unavailable Care Team Providers Care Materials Planner/Production Planner Name Role Phone Carisa Pastor CP Unavailable Allergies No Known Allergies Problems Problem Type Condition Code Onset Dates Condition Status Problem Acute venous embolism and thrombosis of unspecified deep vessels of lower extremity 453.40 Active Problem Tobacco abuse V15.82 Active Problem Impotence of organic origin 607.84 Active Problem Coronary atherosclerosis of unspecified type of vessel, [place] or graft 414.00 Active Problem Coronary atherosclerosis of [place] coronary artery 414.01 Active Problem Personal history of venous thrombosis and embolism V12.51 Active Problem Anticoagulation therapy V58.61 Active Problem Congestive heart failure, unspecified 428.0 Active Problem Coronary atherosclerosis of [place] coronary artery 414.01 Active Problem Diabetes Mellitus Type 2, not stated as uncontrolled 250.00 Active Assessment COPD 496 Active Problem Mixed hyperlipidemia 272.2 Active Problem COPD 496 Active Problem Diabetes mellitus without mention of complication, type II or unspecified type, uncontrolled 250.02 Active Medications Medication Code System Code Instructions Start Date End Date Status Dosage Ventolin HFA [facility] [address]-53 108 (90 Base) MCG/ACT Inhalation every 4 hrs Oct 23, 2013 2 puffs as needed Results No Known Results Summary Purpose [employer] Submission
[2016-11-27] MEDS ORDERED: INSU100I14 SQ (22:11)
[2016-11-27] MEDS ORDERED: ACETAMINOPHEN 325 MG TABLET PO PRN (22:15)
[2016-11-27] MEDS ORDERED: ONDANSETRON 4mg/2ml INJECTION IV PRN (22:15)
[2016-11-27 22:25] VITALS: O2SAT 94
[2016-11-27] MEDS ORDERED: GLUCOSE ORAL GEL 40% 37.5 G TUBE PO PRN (22:30)
[2016-11-27] MEDS ORDERED: DEXTROSE 50% SYRINGE 50ml (Eq. 1 AMP) IV PRN (22:30)
[2016-11-27] MEDS: ALBUTEROL/IPRATROPIUM INHAL. 2.5mg-0.5mg/3ml Neb. AEROSOL SCH (22:31)
--- NOTE | 2016-11-27 22:33 | HPPDOC ---
CAMERON FISHER MD 11/27/16 2221: HPI - Adult Date DATE: 11/27/16 TIME: 22:15 General Chief Complaint: Pneumonia History of Present Illness 61yo M with PMH of COPD on chronic O2 of 2-4L at home, CHF, DM, and CKD transferred from [facility] for PNA, and elevated troponin. He reports he started feeling bad about a week ago. He went to hsi PCP's office and was given a shot, he report that this made him feel better, until this AM when he woke up and "he had PNA". Patient reports a little fever at home, and cough productive of greyish sputum. He reports that he has not taken any ABX for this. He is no longer a smoker, he quit 2 years ago. Patient was admitted to [facility] this PM and was found to have increasing troponins from .66 to 1.5. Pt gang supervisor is Dr. Etienne, he was last seen in clinic in clinic 1 month ago. Patient was transferred for further evaluation and treatment. Past Medical History Surgical History Patient's Surgical History: Abdominal aneurysm repair concurrently with CABG 5 vessels (January 2015) Pacemaker Hernia repair Vasectomy Current Medications Home Meds Active Scripts Warfarin Sodium (Coumadin) 5 Mg Tablet, 5 MG PO 1700, #30 TAB 2 Refills hold the next schedule dose of coumadin. after this take the 5mg tablets 1 time per day (at 1700). Prov:KWESI WILSON DO 12/30/15 Levofloxacin (Levaquin) 750 Mg Tablet, 750 MG PO DAILY, #5 0 Refills Prov:KWESI WILSON DO 12/30/15 Prednisone (Prednisone) 10 Mg Tablet, 10 MG PO WB, #15 TAB 0 Refills take 2 tablets orally daily X5 days then take 1 tablet orally daily X5 days then stop. Prov:KWESI WILSON DO 12/30/15 Metoprolol Tartrate (Metoprolol Tartrate) 25 Mg Tablet, 25 MG PO BIDWM for 30 Days, TAB 2 Refills Prov:KWESI WILSON DO 12/30/15 Benzonatate (Benzonatate) 200 Mg Capsule, 200 MG PO Q8H Y for COUGH/CONGESTION for 14 Days, CAP 1 Refill Prov:KWESI WILSON DO 12/30/15 Tiotropium Wendel (Spiriva) 1 Cap Capsule, 1 CAP ORAL INH DAILY for COPD for 30 Days, INHALER Prov:PORFIRIO GEORGE MD 11/21/15 Reported Medications Insulin Lispro (Humalog) 100 Unit/1 Ml Insuln.pen, 12 UNIT SQ TIDWM, SYRINGE 11/27/16 Potassium Chloride (Klor-Con M20) 20 Meq Tablet, 10 MEQ PO DAILY 12/26/15 Insulin Glargine,Hum.rec.anlog (Lantus) 100 Unit/Ml Inj, 20 UNIT SQ HS 12/26/15 Albuterol Sulfate (Albuterol Sulfate) 2.5 Mg/3 Ml Vial.neb, 1 VIAL AEROSOL Q4HPRN 11/10/15 Multivitamin (Multi-Day Vitamins) 1 Each Tablet, 1 TAB PO DAILY 10/27/15 Bumetanide (Bumetanide) 1 Mg Tablet, 1 MG PO BID 04/29/15 Atorvastatin Calcium (Atorvastatin Calcium) 40 Mg Tablet, 40 MG PO DAILY 04/29/15 Spironolactone (Spironolactone) 25 Mg Tablet, 25 MG PO HS 04/29/15 Glyburide (Glyburide) 5 Mg Tablet, 5 MG PO DAILY 04/29/15 Metformin HCl (Metformin HCl) 500 Mg Tablet, 2 TAB PO BID 04/29/15 Allergies: Coded Allergies: tetracycline (Verified Allergy, Unknown, 12/26/15) PT SAYS HE IS ALLERGIC TO TERRMYCIN AND AUREOMYCIN (BOTH VETERINARY TETRACYCLINES) Penicillins (Verified Adverse Reaction, Unknown, GET SICK, 12/26/15) Uncoded Allergies: "MYCINS" (Allergy, Unknown, 09/19/13) Family History Family History: Positive for coronary artery disease in mother Social History # of Packs/Tins per Day: 1 # of Years: 50 Sexuality: female partner Advance Directives: No DPOA for Healthcare Only Review of Systems Constitutional: REPORTS: fever Eyes General: DENIES: burning, dryness, erythema, exudate, foreign body sensation, itching, other, pain, photophobia, see HPI, subconjunctival bleed, watering ENMT Ears: DENIES: drainage, erythema, foreign body, other, pain, see HPI Hearing: DENIES: hearing loss, other, see HPI, tinnitus Balance: DENIES: ataxia, falling to one side, other, see HPI, vertigo Cardiovascular DENIES: chest pain, dyspnea on exertion, hx of rheumatic fever, murmur, orthopnea, other, paroxysmal nocturnal dysp, see HPI Vascular: DENIES: Raynaud's, atrophy, intermittent claudication, other, pallor of an extremity, pedal edema, phlebitis, see HPI, unilateral swelling, varicosities Pulmonary Respiratory: see HPI GI Upper Abdomen: DENIES: abdominal swelling, dysphagia, food intolerances, heartburn/indigestion, hematemesis, nausea, other, pain, see HPI, vomiting Lower Abdomen: DENIES: blood in stool, beatris-colored stools, constipation, diarrhea, melena, other, pain, painful BM, see HPI Musculoskeletal General: DENIES: atrophy of muscles, cramps, edema, joint pain, joint swelling , other, pain, see HPI, spasm, tenderness, weakness Lumbar: DENIES: other, pain, see HPI, spasm Integumentary Skin: DENIES: color change, infections, itching, lesion, mole, other, rash, see HPI, sores, tumor, ulcers Neurological General: DENIES: aphasia, ataxia, blackouts, blindness, change in strength, dysarthria, dysesthesia, fainting, headache, memory disturbances, numbness, other, paralysis/paresis, poor coordination, see HPI, seizures, syncope, tics, tingling, tremor, vertigo, weakness Psychiatric Psychiatric: DENIES: anxiety, depression, emotional instability, hallucinations , irritability, memory impairment, nervousness, other, see HPI, suicidal ideation/attempt Endocrine DENIES: heat/cold intolerance, other, polydipsia, polyphagia, see HPI Physical Exam General General Nourishment: well nourished Vital Signs Vital Signs Date Time Temp Pulse Resp B/P Pulse Ox O2 Delivery O2 Flow Rate FiO2 11/27/16 22:04 99.8 109 28 130/96 95 Room Air 4.00 Height (Feet): 6 Height (Inches): 0.00 Respiratory Brief: FOUND: rales, wheezes Cardiovascular (brief) Cardiac Brief: FOUND: murmur, pedal edema (2+) Abdomen (brief) Abdominal Brief: NOT FOUND: BS normo active x4, distended, hepatosplenomegaly, other, pulsatile mass, soft, tender Neurologic RN Documented GCS Eye Opening: Verbal: Motor: Total: Psychiatric (brief) FOUND: alert, oriented Sepsis Diagnostic Criteria Sepsis Confirmed/Suspected Infection: Yes SIRS Criteria: Pulse >= 90 beats/min Assessment & Plan Problems: (1) Pneumonia involving right lung Status: Acute Assessment & Plan: could be due to underlying COPD exacerbation. start IV ABX ceftriaxone/azithromycin, solumedrol 125Q6H, duonebs Q4H. Supportive care and agressive pulmonary toilet. Repeat CXR, admit labs, lactic acid. check blood CX and sputum cx. (2) COPD exacerbation Status: Acute Assessment & Plan: IV steroids and duonebs. order IS and acapella valve. (3) Type II diabetes mellitus, uncontrolled Status: Chronic Assessment & Plan: correctional insulin, glucose check ACHS. (4) Hypertension Status: Chronic Assessment & Plan: continue home meds (5) CHF (congestive heart failure) Status: Chronic (6) Hypoxia Status: Acute Assessment & Plan: patient on supplemental oxygen at home. (7) Elevated troponin Status: Acute Assessment & Plan: check cardiac enzymes and consult cards in AM. Code Status Hospital Course Summary Disclaimer The hospital course summary below is not to be considered part of the above Progress Note. MIGDALIA ANGUIANO MD 11/28/16 1214: Past Medical History Current Medications Home Meds Active Scripts Warfarin Sodium (Coumadin) 5 Mg Tablet, 5 MG PO 1700, #30 TAB 2 Refills hold the next schedule dose of coumadin. after this take the 5mg tablets 1 time per day (at 1700). Prov:KWESI WILSON DO 12/30/15 Levofloxacin (Levaquin) 750 Mg Tablet, 750 MG PO DAILY, #5 0 Refills Prov:KWESI WILSON DO 12/30/15 Prednisone (Prednisone) 10 Mg Tablet, 10 MG PO WB, #15 TAB 0 Refills take 2 tablets orally daily X5 days then take 1 tablet orally daily X5 days then stop. Prov:KWESI WILSON DO 12/30/15 Metoprolol Tartrate (Metoprolol Tartrate) 25 Mg Tablet, 25 MG PO BIDWM for 30 Days, TAB 2 Refills Prov:KWESI WILSON DO 12/30/15 Benzonatate (Benzonatate) 200 Mg Capsule, 200 MG PO Q8H Y for COUGH/CONGESTION for 14 Days, CAP 1 Refill Prov:KWESI WILSON DO 12/30/15 Tiotropium Wendel (Spiriva) 1 Cap Capsule, 1 CAP ORAL INH DAILY for COPD for 30 Days, INHALER Prov:PORFIRIO GEORGE MD 11/21/15 Reported Medications Insulin Lispro (Humalog) 100 Unit/1 Ml Insuln.pen, 12 UNIT SQ TIDWM, SYRINGE 11/27/16 Potassium Chloride (Klor-Con M20) 20 Meq Tablet, 10 MEQ PO DAILY 12/26/15 Insulin Glargine,Hum.rec.anlog (Lantus) 100 Unit/Ml Inj, 20 UNIT SQ HS 12/26/15 Albuterol Sulfate (Albuterol Sulfate) 2.5 Mg/3 Ml Vial.neb, 1 VIAL AEROSOL Q4HPRN 11/10/15 Multivitamin (Multi-Day Vitamins) 1 Each Tablet, 1 TAB PO DAILY 10/27/15 Bumetanide (Bumetanide) 1 Mg Tablet, 1 MG PO BID 04/29/15 Atorvastatin Calcium (Atorvastatin Calcium) 40 Mg Tablet, 40 MG PO DAILY 04/29/15 Spironolactone (Spironolactone) 25 Mg Tablet, 25 MG PO HS 04/29/15 Glyburide (Glyburide) 5 Mg Tablet, 5 MG PO DAILY 04/29/15 Metformin HCl (Metformin HCl) 500 Mg Tablet, 2 TAB PO BID 04/29/15 Allergies: Coded Allergies: tetracycline (Verified Allergy, Unknown, 12/26/15) PT SAYS HE IS ALLERGIC TO TERRMYCIN AND AUREOMYCIN (BOTH VETERINARY TETRACYCLINES) Penicillins (Verified Adverse Reaction, Unknown, GET SICK, 12/26/15) Uncoded Allergies: "MYCINS" (Allergy, Unknown, 09/19/13) Assessment & Plan Problems: (1) Pneumonia involving right lung Status: Acute (2) COPD exacerbation Status: Acute (3) Systolic CHF, acute on chronic Status: Acute (4) Elevated troponin Status: Acute (5) Hypoxia Status: Acute (6) Hypertension Status: Chronic (7) Type II diabetes mellitus, uncontrolled Status: Chronic (8) Cardiomyopathy Status: Chronic (9) CAD (coronary artery disease) Status: Chronic Assessment & Plan: Prior CABG 5 vessels (10) History of pulmonary embolus (PE) Status: Chronic (11) Leg edema, left Status: Chronic Assessment & Plan: History DVT LLE Assessment Notes of Dr. Fisher reviewed, patient interviewed and examined. Discussed with Dr. Conn. Patient describes increasing cough productive of lizarraga/brown sputum in large amounts for 1 week with associated dyspnea, increased oxygen demand, increasing exertional dyspnea, wheezing, and fever for several days leading to hospitalization in [place] 4-5 days ago. Cough worsened with activities or when he was supine. He was treated with antibiotics as an inpatient for 2 days and improved after which he discharged with oral Levaquin but he could not afford it. He relapsed with recurrence of same symptoms and was reevaluated in the ER and [facility] yesterday were x-ray demonstrated right lower lobe infiltrate and troponin was elevated prompting transfer to [place] as previously noted. The patient denies chest pain but reports he never had chest pain before his bypass surgery. He typically uses oxygen only at night but has required continuous oxygen over the past week and has been on 4 L continuously as opposed to the 2-4 L he previously used at night. Even on 4 L oxygenation has been borderline. Patient denies increasing edema in his lower extremities and reports that left lower extremity edema is chronic. He additionally describes inability to take his usual cardiac medications are warfarin due to medication expense. He denies left lower extremity pain. Past medical history is positive for: Diabetes mellitus, congestive heart failure, coronary artery disease, chronic kidney disease, history PE and left lower extremity DVT, and current pneumonia Surgical history as previously described. Patient reports he would like his brother and sister to make medical decisions for him if he is unable to do so but has not completed OA paperwork. He requests a DO NOT RESUSCITATE order be written and does not wish to be on a ventilator or cardioverted/have CPR initiated in the event of cardiac or respiratory arrest. He was very animated in making this statement and spontaneously used the term DNR. Review of systems is as previously outlined with additional positives as noted above. Physical examination reveals an afebrile patient with normal blood pressure although oxygen saturation is 88% on 4 L. Patient is alert, cooperative, and coughing frequently. Speech is fluent Conjunctiva clear, sclera anicteric, gaze is conjugate. Pupils are round. Oral membranes are clear and neck is supple. Breath sounds are coarse at the right base without wheezing present airflow is good. Respirations are nonlabored. Heart tones are diminished but regular. Abdomen is soft and nontender, bowel sounds are diminished. There is trace edema at the right lower extremity and +2 edema left lower extremity, calves are nontender. Skin is without generalized rash or evidence of injury. Sensation is intact 4 extremity and patient is a motor tone is normal. Strength is grossly within normal limits. Chest x-ray has been reviewed by myself. There is infiltrate at the right base and evidence of heart failure. Heart is significantly enlarged. Repeat troponin has slightly improved at 1.26. Blood sugars are elevated and consistently above 200. White count is normal although there is 5% bands. Echocardiogram demonstrates cardiomyopathy with ejection fraction of proximal mid 20%. Sputum culture pending, continue Rocephin for community-acquired pneumonia. Consider conversion to Levaquin which was apparently what was utilized at [facility]. Patient does have COPD exacerbation but will convert from Solu- Medrol to prednisone orally to minimize hyperglycemia. Continue to hold metformin until medical stability is demonstrated; continue insulin as needed. Heart failure is clearly a component of patient's presentation-Dr. Conn consulted and case has been discussed with him. Cardiac catheterization planned today due to elevated troponin. EKG nonrevealing due to pacemaker and bundle branch block. Type II NM probable. Plan/Intensity of Service Chest x-ray and EKG reviewed by myself. Discussed with Dr. Conn. Laboratory data reviewed. Additional studies ordered. Discussed with nursing. CODE STATUS reviewed. Code Status DO NOT RESUSCITATE CAMERON FISHER MD Nov 27, 2016 22:21 MIGDALIA ANGUIANO MD Nov 28, 2016 12:14
[2016-11-27] MEDS: CEFTRIAXONE 1 G in NORMAL SALINE 100 ML IV SCH (23:08)
[2016-11-27] MEDS: NORMAL SALINE 1,000 ML IV SCH (23:13)
[2016-11-27] MEDS: BENZONATATE 200 MG CAPSULE PO PRN (23:30)
[2016-11-27 23:31] LABS: BASOPHILS % (AUTO) 0.2 % (0-2); EOSINOPHILS % (AUTO) 0.3 % (0-4); HCT - HEMATOCRIT 43.5 % (41-53); HGB - HEMOGLOBIN 13.9 GM/DL (13.5-17.5); IMMATURE GRANULOCYTE # (AUTO) 0.02 T/MM3 (0.00-0.03); IMMATURE GRANULOCYTE % (AUTO) 0.3 % (0.0-0.5); LYMPHOCYTES # (AUTO) 0.7 T/MM3 (1-4.8); LYMPHOCYTES % (AUTO) 10.4 % (23-45); MEAN CORPUSCULAR HGB 29.9 UUG (26-34); MEAN CORPUSCULAR VOLUME 93.5 UM3 (80-100); MEAN PLATELET VOLUME 10.3 UM3 (9.4-12.4); MONOCYTES % (AUTO) 15.2 % (0-9.0); NEUTROPHILS #(AUTO)-ABSOLUTE 4.7 T/MM3 (1.8-7.7); NEUTROPHILS % (AUTO) 73.6 % (33-66); RED BLOOD COUNT 4.65 M/MM3 (4.50-5.90); WBC - WHITE BLOOD COUNT 6.3 T/MM3 (4.5-11.0)
[2016-11-27 23:33] LABS: LACTATE - LACTIC ACID 1.2 MMOL/L (0.6-2.2)
[2016-11-27 23:34] LABS: ALBUMIN 3.7 G/DL (3.5-5.0); ALBUMIN/GLOBULIN RATIO 1.3 RATIO (1.1-2.2); ALKALINE PHOSPHATASE 51 U/L (38-126); ALT (SGPT) 53 U/L (21-72); ANION GAP 9 MEQ/L (5-15); AST (SGOT) 53 U/L (17-59); BUN/CREATININE RATIO 22 RATIO (6-26); CALCIUM 8.6 MG/DL (8.4-10.2); CHLORIDE 101 MEQ/L (98-107); CO2 - CARBON DIOXIDE 27 MEQ/L (22-30); CREATININE 1.2 MG/DL (0.8-1.5); GLOMERULAR FILTRATION RATE 61; GLUCOSE 278 MG/DL (75-110); SODIUM 137 MEQ/L (134-144); TOTAL PROTEIN 6.5 G/DL (6.3-8.2)
[2016-11-28] VITALS (24 sets, daily range): BP systolic 101–155; BP diastolic 72–103; PULSE 68–116; RESP 17–28; TEMP 97.7–99.5; O2SAT 88–99
[2016-11-28 00:02] LABS: INR 1.17 (0.76-1.04); PROTHROMBIN TIME 12.8 SEC (9.31-12.49)
[2016-11-28] MEDS: ALBUTEROL INH.SOLN. 2.5mg/3ml (0.083%) Neb. AEROSOL PRN ×3 (00:06→19:37)
--- NOTE | 2016-11-28 01:15 | NUR ---
LAB UPDATED DR. FISHER ABOUT TROP. LAB RESULTS.
[2016-11-28] MEDS: MENTHOL COUGH DROPS (RICOLA) MM PRN ×11 (01:54→23:20)
[2016-11-28] MEDS: ALBUTEROL/IPRATROPIUM INHAL. 2.5mg-0.5mg/3ml Neb. AEROSOL SCH ×6 (03:04→21:26)
[2016-11-28] MEDS: INSULIN LISPRO 100 UNIT/ML SQ PRN ×3 (05:58→20:47)
[2016-11-28 06:59] LABS: HCT - HEMATOCRIT 42.7 % (41-53); HGB - HEMOGLOBIN 13.6 GM/DL (13.5-17.5); MEAN CORPUSCULAR HGB 29.8 UUG (26-34); MEAN CORPUSCULAR HGB CONC(MCHC 31.9 GM/DL (31-37); MEAN CORPUSCULAR VOLUME 93.6 UM3 (80-100); MEAN PLATELET VOLUME 10.2 UM3 (9.4-12.4); RED BLOOD COUNT 4.56 M/MM3 (4.50-5.90); WBC - WHITE BLOOD COUNT 5.9 T/MM3 (4.5-11.0)
[2016-11-28 07:15] LABS: ANION GAP 13 MEQ/L (5-15); BUN/CREATININE RATIO 24 RATIO (6-26); CALCIUM 8.6 MG/DL (8.4-10.2); CHLORIDE 99 MEQ/L (98-107); CO2 - CARBON DIOXIDE 26 MEQ/L (22-30); CREATININE 1.1 MG/DL (0.8-1.5); GLOMERULAR FILTRATION RATE 68; GLUCOSE 261 MG/DL (75-110); MAGNESIUM 1.8 MG/DL (1.6-2.3); POTASSIUM 4.2 MEQ/L (3.6-5); SODIUM 138 MEQ/L (134-144)
[2016-11-28 07:45] LABS: ANISOCYTOSIS 1+; BAND NEUTROPHILS # 0.3 T/MM3; LYMPHOCYTES # (MANUAL) 0.7 T/MM3 (1-4.8); MONOCYTES # (MANUAL) 0.1 T/MM3 (0-0.8); NEUTROPHILS #(MANUAL)-ABSOLUTE 4.8 T/MM3 (1.8-7.7); OVALOCYTES 1+; TOTAL CELLS COUNTED 100 %
[2016-11-28] MEDS ORDERED: POTASSIUM CHLORIDE 10 MEQ TABLET PO SCH (08:00)
[2016-11-28] MEDS ORDERED: AZITHROMYCIN 500 MG in NORMAL SALINE 250 ML IV SCH (09:00)
[2016-11-28] MEDS ORDERED: SPIRONOLACTONE 25 MG TABLET PO SCH (09:00)
[2016-11-28] MEDS ORDERED: BUMETANIDE 1 MG TABLET PO SCH (09:00)
[2016-11-28] MEDS: CEFTRIAXONE 1 G in NORMAL SALINE 100 ML IV SCH (09:01)
[2016-11-28] MEDS: MULTIVITAMIN PLAIN TABLET PO SCH (09:29)
--- NOTE | 2016-11-28 10:22 | DI ---
INDICATION: ITS.REASON: cough, copd, pneumonia PROCEDURE: CHEST 2-VIEWS UPRIGHT (PA \T\ LAT) Encounter: Initial COMPARISON: December 26, 2015 FINDINGS: Airspace consolidation in the right lower lobe, not as significant as the prior study. The remaining lung song are grossly clear. No pneumothorax or pleural effusion. Severe enlargement of the cardiac silhouette has worsened. Prior sternotomy. Left cardiac pacemaker defibrillator. Multiple overlying monitoring leads. Pulmonary vascularity is unchanged. Impression: 1. Recurrent right lower lobe pneumonia or aspiration. 2. Worsening enlargement of the cardiac silhouette could be due to cardiomegaly, cardiomyopathy or pericardial effusion. .
[2016-11-28] MEDS: NORMAL SALINE 1,000 ML IV SCH ×2 (10:39→20:49)
--- NOTE | 2016-11-28 10:58 | ECHOF ---
ECHOCARDIOGRAM REPORT DATE OF PROCEDURE November 28, 2016 REFERRING ENTITY Elle Parmar MD This is a two-dimensional echo with spectral Doppler, color-flow and M-mode. It was obtained in a patient with congestive heart failure, coronary artery disease and cardiomyopathy. Left atrium is dilated. Left ventricle end-diastolic dimension is markedly increased. LV systolic function is reduced with severe global hypokinesia with ejection fraction no more than 20%. Left ventricular wall thickness is normal. Right atrium is dilated. Right ventricle is normal. Aortic root dimension is normal. Mitral valve is morphologically normal with moderate mitral regurgitation with mitral annulus calcification. Aortic valve shows mild fibrocalcific changes with no stenosis. Trace of aortic insufficiency is present. Tricuspid valve shows moderate tricuspid regurgitation with mild pulmonary hypertension with estimated pulmonary artery systolic pressure of 42. Pulmonary valve shows no pulmonary insufficiency. There is no pericardial effusion. Pacemaker or ICD lead is present in right heart. IMPRESSION 1. Biatrial dilation. 2. Marked left ventricle dilation. 3. Severe global hypokinesia with ejection fraction no more than 20%. 4. ICD or pacemaker lead present in right heart. 5. Mitral annulus calcification with moderate mitral regurgitation. 6. Aortic sclerosis with trace of aortic insufficiency. 7. Moderate tricuspid regurgitation with mild pulmonary hypertension with estimated pulmonary artery systolic pressure of 42. MTDD
[2016-11-28] MEDS ORDERED: HEPARIN 1,000units in NS 500ml BAG IV ONE (11:13)
[2016-11-28] MEDS ORDERED: LIDOCAINE 1% (10mg/ml) 30ml SDV ONE (11:14)
[2016-11-28] MEDS: LISINOPRIL 5 MG TABLET PO SCH ×2 (11:15→12:56)
[2016-11-28] MEDS ORDERED: CARVEDILOL 3.125 MG TABLET PO SCH (11:15)
--- NOTE | 2016-11-28 11:21 | NUR ---
OFF UNIT PATIENT OFF UNIT AT THIS TIME. PATIENT IS ALERT AND ORIENTED X3. PATIENT MOVED SELF FROM BED TO HEART CATH HEART. PATIENT DENIES CP, AND NAUSEA.
[2016-11-28] MEDS ORDERED: FENTANYL 100mcg/2ml INJECTION ONE (11:29)
[2016-11-28] MEDS ORDERED: MIDAZOLAM 2mg/2ml INJECTION ONE (11:30)
--- NOTE | 2016-11-28 11:44 | NUR ---
CM CM ATTEMPTED VISIT. PT IS AT PROCEDURE. NO FAMILY IS PRESENT AT THE BEDSIDE. CM CONTACT INFORMATION IS LEFT AT THE BEDSIDE.
[2016-11-28] MEDS ORDERED: ACETAMINOPHEN 325 MG TABLET PO PRN (11:45)
[2016-11-28] MEDS ORDERED: MAG-AL + SIM LIQUID 30 ML UDC PO PRN (11:45)
[2016-11-28] MEDS ORDERED: BISACODYL 10 MG SUPPOSITORY RECTALLY PRN (11:45)
[2016-11-28] MEDS ORDERED: BISACODYL 5 MG E.C. TABLET PO PRN (11:45)
[2016-11-28] MEDS ORDERED: ATROPINE 1 MG/ML VIAL IV PRN (11:45)
[2016-11-28] MEDS ORDERED: PROMETHAZINE 25 MG INJECTION IV PRN (11:45)
[2016-11-28] MEDS ORDERED: NITROGLYCERIN 0.4 MG SUBLINGUAL TABLET SL PRN (11:45)
[2016-11-28] MEDS ORDERED: METOCLOPRAMIDE 10mg/2ml INJECTION IV PRN (11:45)
[2016-11-28] MEDS ORDERED: MILK OF MAGNESIA 30 ML SUSP PO PRN (11:45)
[2016-11-28] MEDS ORDERED: ONDANSETRON 4mg/2ml INJECTION IV PRN (11:45)
[2016-11-28] MEDS ORDERED: HYDROCODONE/APAP 5 mg/325 mg TABLET PO PRN (11:45)
[2016-11-28] MEDS ORDERED: MORPHINE SULFATE 4 MG SYRINGE IV PRN ×2 (11:45)
--- NOTE | 2016-11-28 12:05 | NUR ---
BACK PT RECIEVED TO ROOM 124 AT THIS TIME. PT SETTLED AND ASSESSED AT THIS TIME. PT MOVED FROM CART TO BED WITH ASSISTX3 AND SLIDE BOARD. PT INSTRUCTED NOT MOVE HIS LEGS, PT THEN WIGGLED HIS LEGS.
[2016-11-28] MEDS ORDERED: HYDROCODONE/CHLORPHENIRAMINE ER 5 ML LIQUID PO PRN (12:30)
--- NOTE | 2016-11-28 12:52 | NUR ---
COOPER CATHETER INSERTION COOPER CATHETER INSERTED AT THIS TIME BY NURSE CAMMY CHANDLER. INSERTION WAS DONE UNDER STERILE TECHNIQUE. CLEAR YELLOW URINE FOUND TO BE DRAINING AT THIS TIME. PT INSTRUCTED WHY COOPER CATHETER WAS TO BE INSERTED AND IT'S PURPOSE. PT INSTRUCTED THAT HE WILL BE RECEIVING MEDICATION THAT WILL HELP PULL EXCESS FLUID OFF.
[2016-11-28] MEDS: SPIRONOLACTONE 50 MG TABLET PO SCH (12:55)
--- NOTE | 2016-11-28 12:55 | NUR ---
REFUSAL MEDICATION PATIENT REFUSED LISINOPRIL AT THIS TIME. PATIENT STATED "I DON'T WANT IT BECAUSE IT GIVES ME CRAMPS." PATIENT EDUCATED ON MEDICATION USES AND STILL DECLINED MEDICATION. PATIENT IS ALERT AND ORIENTED X3.
[2016-11-28] MEDS: PredniSONE 20 MG TABLET PO SCH (12:56)
[2016-11-28] MEDS: POTASSIUM CHLORIDE 20 MEQ TABLET PO SCH ×2 (12:57→17:58)
[2016-11-28] MEDS: FUROSEMIDE 100 MG/10 ML INJECTION IV SCH ×2 (12:57→18:00)
--- NOTE | 2016-11-28 13:02 | CVPROF ---
DATE OF PROCEDURE November 28, 2016. REFERRING PHYSICIAN Dorothy Gracia MD PRIMARY CARE PHYSICIAN Moreno León, DO INDICATIONS The patient is a pleasant 61-year-old gentleman with coronary artery disease and coronary artery bypass graft with cardiomyopathy who was admitted with congestive heart failure, shortness of breath and elevation in troponin and was referred for further evaluation by cardiac catheterization and possible intervention. INFORMED CONSENT Informed consent was obtained after explaining the procedure and the potential risks to the patient who agreed to proceed with the procedure. PROCEDURE 1. Left heart catheterization. 2. Coronary angiography. 3. Bypass angiography. 4. Selective BARRAZA angiography. 5. Right femoral angiography to visualize the vessel for Mynx deployment. 6. Successful Mynx deployment for hemostasis. TECHNIQUE The patient was prepped and draped in the usual sterile techniques. Conscious sedation was performed using Versed and fentanyl. 1% lidocaine was used for local anesthesia. Using modified Seldinger technique, arterial access was obtained into the right femoral artery with placement of a 6-[place] arterial sheath. CORONARY ANGIOGRAPHY Left main was free of significant lesions. The left anterior descending artery was occluded after the first diagonal. Left circumflex artery was occluded. Right coronary artery had about 70-80% stenosis. Left internal mammary angiography showed no connection to coronary bed. A vein graft to right coronary artery was patent with excellent flow. A vein graft to second and third marginals was patent with excellent flow. Right femoral angiography showed patent common femoral, proximal SFA and profunda and therefore Mynx was used for hemostasis. Proximal SFA also had about 75% eccentric lesion. IMPRESSION 1. Coronary artery disease as described above. The patient has no bypasses to LAD, but the other bypasses are patent. 2. Successful Mynx deployment for hemostasis. 3. Incidental finding of peripheral arterial disease involving right SFA. PLAN Will continue medical management for coronary artery disease. The patient may require further workup for peripheral arterial disease in future. JENNIFER
--- NOTE | 2016-11-28 14:34 | DI ---
Indication: ITS.REASON: edema, history of DVT PROCEDURE: US VENOUS DUPLEX, LOWER EXT LT: Encounter: Initial Comparison: July 08, 2015 Technique: Color Doppler duplex and grayscale sonographic imaging of the left lower extremity was performed. Findings: Chronic nonocclusive thrombus is again noted in the mid superficial femoral vein. No new or acute appearing DVT identified. Specifically, serial graded compression was performed from the inguinal ligament to the popliteal bifurcation, on the left thigh, demonstrating appropriate compressibility of the remaining deep venous system. In addition, color and pulsed Doppler demonstrate appropriate spontaneous flow, variation with respiration, and augmentation with calf compression. At the ankle, normal flow is identified in the posterior tibial veins; these vessels are also normal in caliber. Impression: No evidence of acute DVT in the left lower limb. Chronic nonocclusive DVT in the left superficial femoral vein. .
--- NOTE | 2016-11-28 14:37 | CONSPD ---
GAYLA RODRIGUEZ PRINTING SUPERVISOR 11/28/16 1333: Consultation Info Date DATE: 11/28/16 TIME: 13: Date of Consultation: Nov 28, 2016 Attending Physician: Dr. Gracia Reason for Consultation: Elevated Troponin HPI - Adult Date DATE: 11/28/16 TIME: 13:27 General Date of Admission Date of Admission: Nov 27, 2016 at 22:03 Chief Complaint: Pneumonia History of Present Illness Mr. Garcia is a 61 yo male that is well known to Dr. Oro with a hx of COPD, home O2 of 2-4L, CHF, DM, CAD, Ischemic cardiomyopathy DVT, cardiac defibrillator, bypass, hyperlipidemia. He has had a one week history of shortness of air, productive cough, and fever to which he as admitted to an outside hospital and was diagnosed with pneumonia given antibiotics. [facility] his troponin spiked to 1.56 and was then transfer to [facility]. Patient was examined in his room by Dr. Oro and was decided to cath him due to labored breathing, increased oxygen demand, elevated troponin, history of CAD and bypass, and severe ischemic caridomegaly Past Medical History Past Medical History Metabolic: diabetes, hypercholesterolemia, hypertension ENMT: allergies Cardiac: CAD, CHF, OH, aortic aneurysm Respiratory: COPD, other (home O2 2-4Liters), pulmonary embolus Hematologic: DVT Surgical History General: hernia Cardiac: aneurysm repair, cardiac bypass, pacemaker Current Medications Home Meds Active Scripts Warfarin Sodium (Coumadin) 5 Mg Tablet, 5 MG PO 1700, #30 TAB 2 Refills hold the next schedule dose of coumadin. after this take the 5mg tablets 1 time per day (at 1700). Prov:KWESI WILSON DO 12/30/15 Levofloxacin (Levaquin) 750 Mg Tablet, 750 MG PO DAILY, #5 0 Refills Prov:KWESI WILSON DO 12/30/15 Prednisone (Prednisone) 10 Mg Tablet, 10 MG PO WB, #15 TAB 0 Refills take 2 tablets orally daily X5 days then take 1 tablet orally daily X5 days then stop. Prov:KWESI WILSON DO 12/30/15 Metoprolol Tartrate (Metoprolol Tartrate) 25 Mg Tablet, 25 MG PO BIDWM for 30 Days, TAB 2 Refills Prov:KWESI WILSON DO 12/30/15 Benzonatate (Benzonatate) 200 Mg Capsule, 200 MG PO Q8H Y for COUGH/CONGESTION for 14 Days, CAP 1 Refill Prov:KWESI WILSON DO 12/30/15 Tiotropium Dyess (Spiriva) 1 Cap Capsule, 1 CAP ORAL INH DAILY for COPD for 30 Days, INHALER Prov:PORFIRIO GEORGE MD 11/21/15 Reported Medications Insulin Lispro (Humalog) 100 Unit/1 Ml Insuln.pen, 12 UNIT SQ TIDWM, SYRINGE 11/27/16 Potassium Chloride (Klor-Con M20) 20 Meq Tablet, 10 MEQ PO DAILY 12/26/15 Insulin Glargine,Hum.rec.anlog (Lantus) 100 Unit/Ml Inj, 20 UNIT SQ HS 12/26/15 Albuterol Sulfate (Albuterol Sulfate) 2.5 Mg/3 Ml Vial.neb, 1 VIAL AEROSOL Q4HPRN 11/10/15 Multivitamin (Multi-Day Vitamins) 1 Each Tablet, 1 TAB PO DAILY 10/27/15 Bumetanide (Bumetanide) 1 Mg Tablet, 1 MG PO BID 04/29/15 Atorvastatin Calcium (Atorvastatin Calcium) 40 Mg Tablet, 40 MG PO DAILY 04/29/15 Spironolactone (Spironolactone) 25 Mg Tablet, 25 MG PO HS 04/29/15 Glyburide (Glyburide) 5 Mg Tablet, 5 MG PO DAILY 04/29/15 Metformin HCl (Metformin HCl) 500 Mg Tablet, 2 TAB PO BID 04/29/15 Allergies: Coded Allergies: tetracycline (Verified Allergy, Unknown, 12/26/15) PT SAYS HE IS ALLERGIC TO TERRMYCIN AND AUREOMYCIN (BOTH VETERINARY TETRACYCLINES) Penicillins (Verified Adverse Reaction, Unknown, GET SICK, 12/26/15) Uncoded Allergies: "MYCINS" (Allergy, Unknown, 09/19/13) Family History FOUND: CAD, OH, other (TIA) Vaccines NOVEMBER 2016 FEW YEARS BACK "3-4 YEARS AGO" UNKNOWN Social History Smoking Status: Former smoker Does patient use chewing tobac: No # of Packs/Tins per Day: 1 # of Years: 50 Substance Use Type: does not use Alcohol Intake: none Marital Status: Single Sexuality: female partner Current Occupational Status: unemployed, disabled Advance Directives: No DPOA for Healthcare Only Review of Systems Constitutional: REPORTS: fatigue Cardiovascular chest pain, dyspnea on exertion, orthopnea Rhythm/Rate: DENIES: irregular beat, tachycardia Vascular: pedal edema Pulmonary Respiratory: cough, dyspnea, sputum Musculoskeletal General: edema (right leg 3+ left leg2+) Neurological General: weakness Psychiatric Psychiatric: DENIES: depression, nervousness Endocrine DENIES: heat/cold intolerance Hematologic/Lymphatic DENIES: anemia Allergic/Immunological DENIES: sneezing Physical Exam General General Nourishment: obese, adult General Body Habitus: disheveled Vital Signs Vital Signs Date Time Temp Pulse Resp B/P Pulse Ox O2 Delivery O2 Flow Rate FiO2 11/28/16 13:15 81 22 125/89 99 Nasal Cannula 3.00 11/28/16 08:00 98.7 Height (Feet): 6 Height (Inches): 0.00 Telemetry Rhythm: Apaced Eyes Brief: FOUND: PERRL Respiratory Brief: FOUND: other (expiratory rales) Cardiovascular (brief) Cardiac Brief: FOUND: pedal edema, regular rate, NOT FOUND: regular rhythm Abdomen (brief) Abdominal Brief: FOUND: BS normo active x4 Musculoskeletal (brief) Musculoskeletal Brief: NOT FOUND: spasm, tenderness Integumentary (brief) Integumentary Brief: NOT FOUND: pink, warm Neurologic RN Documented GCS Eye Opening: Verbal: Motor: Total: Psychiatric (brief) FOUND: alert, normal affect, oriented Laboratory Laboratory Tests Test 11/27/16 23:06 11/27/16 23:07 11/27/16 23:28 11/28/16 05:53 Prothromb Time International Ratio 1.17 Procalcitonin 0.05NG/ML White Blood Count 6.3T/MM3 Red Blood Count 4.65M/MM3 Hemoglobin 13.9GM/DL Hematocrit 43.5% Mean Corpuscular Volume 93.5UM3 Mean Corpuscular Hemoglobin 29.9UUG Mean Corpuscular Hemoglobin Concent 32.0GM/DL RDW Standard Deviation 52.5FL Platelet Count 158T/MM3 Mean Platelet Volume 10.3UM3 Immature Granulocyte % (Auto) 0.3% Neutrophils (%) (Auto) 73.6% Lymphocytes (%) (Auto) 10.4% Monocytes (%) (Auto) 15.2% Eosinophils (%) (Auto) 0.3% Basophils (%) (Auto) 0.2% Absolute Immature Granulocyte (auto 0.02T/MM3 Absolute Neutrophils (auto) 4.7T/MM3 Absolute Lymphocytes (auto) 0.7T/MM3 Absolute Monocytes (auto) 1.0T/MM3 Absolute Eosinophils (auto) 0.0T/MM3 Absolute Basophils (auto) 0.0T/MM3 Turbidity < 20 Sodium Level 137MEQ/L Potassium Level 4.0MEQ/L Chloride Level 101MEQ/L Carbon Dioxide Level 27MEQ/L Anion Gap 9MEQ/L Blood Urea Nitrogen 26.0MG/DL Creatinine 1.2MG/DL Glomerular Filtration Rate Calc 61 BUN/Creatinine Ratio 22RATIO Glucose Level 278MG/DL Calculated Osmolality 279MOSM/KG Calcium Level 8.6MG/DL Total Bilirubin 1.40MG/DL Icterus Index < 2 Aspartate Amino Transf (AST/SGOT) 53U/L Alanine Aminotransferase (ALT/SGPT) 53U/L Alkaline Phosphatase 51U/L Troponin I 1.560ng/ml Total Protein 6.5G/DL Albumin 3.7G/DL Globulin 2.8G/DL Albumin/Globulin Ratio 1.3RATIO Plasma Lactate 1.2MMOL/L Chemistry Specimen Hemolysis < 15 Adenovirus (PCR) Negative Bordetella parapertussis DNA (PCR) Negative Chlamydia pneumoniae DNA (PCR) Negative Coronavirus Type OC43 (PCR) Negative Coronavirus Type HKU1 (PCR) Negative Coronavirus Type 229E (PCR) Negative Coronavirus Type NL63 (PCR) Negative Human Metapneumovirus (PCR) Negative Influenza Virus Type A (PCR) Negative Influenza Virus Type B (PCR) Negative Mycoplasma pneumoniae (PCR) Negative Parainfluenza Type 1 (PCR) Negative Parainfluenza Type 2 (PCR) Negative Parainfluenza Type 3 (PCR) Negative Parainfluenza Type 4 (PCR) Negative Respiratory Syncytial Virus (PCR) Negative Enterovirus/Rhinovirus (PCR) Negative Glucometer 219mg/dL Test 11/28/16 06:33 White Blood Count 5.9T/MM3 Red Blood Count 4.56M/MM3 Hemoglobin 13.6GM/DL Hematocrit 42.7% Mean Corpuscular Volume 93.6UM3 Mean Corpuscular Hemoglobin 29.8UUG Mean Corpuscular Hemoglobin Concent 31.9GM/DL RDW Standard Deviation 52.5FL Platelet Count 135T/MM3 Mean Platelet Volume 10.2UM3 Immature Granulocyte % (Auto) % Neutrophils (%) (Auto) % Lymphocytes (%) (Auto) % Monocytes (%) (Auto) % Eosinophils (%) (Auto) % Basophils (%) (Auto) % Absolute Immature Granulocyte (auto T/MM3 Absolute Neutrophils (auto) T/MM3 Absolute Lymphocytes (auto) T/MM3 Absolute Monocytes (auto) T/MM3 Absolute Eosinophils (auto) T/MM3 Absolute Basophils (auto) T/MM3 Neutrophils % (Manual) 82.0% Band Neutrophils % 5.0% Lymphocytes % (Manual) 12.0% Monocytes % (Manual) 1.0% Absolute Neutrophils (Manual) 4.8T/MM3 Band Neutrophils # 0.3T/MM3 Lymphocytes # (Manual) 0.7T/MM3 Monocytes # (Manual) 0.1T/MM3 Anisocytosis 1+ Ovalocytes 1+ Red Cell Morphology Comment Abnormal Turbidity < 20 Sodium Level 138MEQ/L Potassium Level 4.2MEQ/L Chloride Level 99MEQ/L Carbon Dioxide Level 26MEQ/L Anion Gap 13MEQ/L Blood Urea Nitrogen 26.0MG/DL Creatinine 1.1MG/DL Glomerular Filtration Rate Calc 68 BUN/Creatinine Ratio 24RATIO Glucose Level 261MG/DL Hemoglobin A1c 8.9% Calculated Osmolality 280MOSM/KG Calcium Level 8.6MG/DL Magnesium Level 1.8MG/DL Icterus Index < 2 Troponin I 1.260ng/ml Chemistry Specimen Hemolysis < 15 EKG 11-28-16 Paced 71 Radiology DATE OF EXAM: 11/27/16 ORDERING DOCTOR: YOLANDA READ MD TYPE OF EXAM: CHEST, PA & LATERAL REASON FOR EXAM: cough, copd, pneumonia INDICATION: ITS.REASON: cough, copd, pneumonia PROCEDURE: CHEST 2-VIEWS UPRIGHT (PA \\T\\ LAT) Encounter: Initial COMPARISON: December 26, 2015 FINDINGS: Airspace consolidation in the right lower lobe, not as significant as the prior study. The remaining lung song are grossly clear. No pneumothorax or pleural effusion. Severe enlargement of the cardiac silhouette has worsened. Prior sternotomy. Left cardiac pacemaker defibrillator. Multiple overlying monitoring leads. Pulmonary vascularity is unchanged. Impression: 1. Recurrent right lower lobe pneumonia or aspiration. 2. Worsening enlargement of the cardiac silhouette could be due to cardiomegaly, cardiomyopathy or pericardial effusion. Impression/Recommendation Problems: (1) NSTEMI (non-ST elevated myocardial infarction) Status: Acute Assessment & Plan: Start coreg, losartan, atorvastatin and ASA, heart cath (2) Systolic CHF, acute on chronic Status: Acute Assessment & Plan: Start coreg, losartan, atorvastatin, furosemide, spironolactone, potassium replacement and ASA (3) Pneumonia involving right lung Status: Acute Assessment & Plan: Antibiotics managed by Dr. Gracia (4) Hypoxia Status: Chronic Assessment & Plan: oxygen per NC 4L (5) Cardiomyopathy Status: Chronic Assessment & Plan: Start coreg, losartan, atorvastatin, furosemide, spironolactone, potassium replacement and ASA (6) CAD (coronary artery disease) Status: Chronic Assessment & Plan: coreg, ASA, Atorvastatin Recommendation Left heart cath today, see report. Plan medical management NSTEMI: Troponin 1) 1.56, 2) 1.260. Stop Metoprolol, Start coreg, losartan, atorvastatin and ASA, lasix, potassium, spironolactone. Thank you for allowing us to participate in the care of this patient. TRINITY ORO MD 12/07/16 7049: Past Medical History Current Medications Home Meds Active Scripts Warfarin Sodium (Coumadin) 5 Mg Tablet, 5 MG PO 1700, #30 TAB 2 Refills hold the next schedule dose of coumadin. after this take the 5mg tablets 1 time per day (at 1700). Prov:KWESI WILSON DO 12/30/15 Levofloxacin (Levaquin) 750 Mg Tablet, 750 MG PO DAILY, #5 0 Refills Prov:KWESI WILSON DO 12/30/15 Prednisone (Prednisone) 10 Mg Tablet, 10 MG PO WB, #15 TAB 0 Refills take 2 tablets orally daily X5 days then take 1 tablet orally daily X5 days then stop. Prov:KWESI WILSON DO 12/30/15 Metoprolol Tartrate (Metoprolol Tartrate) 25 Mg Tablet, 25 MG PO BIDWM for 30 Days, TAB 2 Refills Prov:KWESI WILSON DO 12/30/15 Benzonatate (Benzonatate) 200 Mg Capsule, 200 MG PO Q8H Y for COUGH/CONGESTION for 14 Days, CAP 1 Refill Prov:KWESI WILSON DO 12/30/15 Tiotropium Dyess (Spiriva) 1 Cap Capsule, 1 CAP ORAL INH DAILY for COPD for 30 Days, INHALER Prov:PORFIRIO GEORGE MD 11/21/15 Reported Medications Insulin Lispro (Humalog) 100 Unit/1 Ml Insuln.pen, 12 UNIT SQ TIDWM, SYRINGE 11/27/16 Potassium Chloride (Klor-Con M20) 20 Meq Tablet, 10 MEQ PO DAILY 12/26/15 Insulin Glargine,Hum.rec.anlog (Lantus) 100 Unit/Ml Inj, 20 UNIT SQ HS 12/26/15 Albuterol Sulfate (Albuterol Sulfate) 2.5 Mg/3 Ml Vial.neb, 1 VIAL AEROSOL Q4HPRN 11/10/15 Multivitamin (Multi-Day Vitamins) 1 Each Tablet, 1 TAB PO DAILY 10/27/15 Bumetanide (Bumetanide) 1 Mg Tablet, 1 MG PO BID 04/29/15 Atorvastatin Calcium (Atorvastatin Calcium) 40 Mg Tablet, 40 MG PO DAILY 04/29/15 Spironolactone (Spironolactone) 25 Mg Tablet, 25 MG PO HS 04/29/15 Glyburide (Glyburide) 5 Mg Tablet, 5 MG PO DAILY 04/29/15 Metformin HCl (Metformin HCl) 500 Mg Tablet, 2 TAB PO BID 04/29/15 Allergies: Coded Allergies: tetracycline (Verified Allergy, Unknown, 12/26/15) PT SAYS HE IS ALLERGIC TO TERRMYCIN AND AUREOMYCIN (BOTH VETERINARY TETRACYCLINES) Penicillins (Verified Adverse Reaction, Unknown, GET SICK, 12/26/15) Uncoded Allergies: "MYCINS" (Allergy, Unknown, 09/19/13) Impression/Recommendation Recommendation After examining the patient I agree with the above assessment. I am involved in the formulation of the patient's plan of care. GAYLA RODRIGUEZ APRN Nov 28, 2016 13:33 TRINITY ORO MD Dec 07, 2016 13:49
[2016-11-28] MEDS: LOSARTAN 50 MG TABLET PO SCH (15:19)
--- NOTE | 2016-11-28 18:48 | NUR ---
STATUS PT RESTED WELL TODAY FOR STAFF. PT HAS BEEN UP IN THE BED SINCE THE HEART CATH PROCEDURE. PT HAS NOT HAD ANY COMPLAINTS OF PAIN FOR STAFF. PT RESTED WELL. COOPER CATHETER DRAINING WELL, WITH CLEAR, YELLOW URINE. PT CURRENTLY ON 3L OF O2 PER NC. PT IS AWARE OF HOW TO USE HIS CALL LIGHT TO GET A HOLD OF STAFF. PT DOES NOT HAVE ANY QUESTIONS FOR STAFF RELATED TO CARES.
[2016-11-28] MEDS: ATORVASTATIN 40 MG TABLET PO SCH (20:35)
[2016-11-28] MEDS: BENZONATATE 200 MG CAPSULE PO PRN (22:12)
[2016-11-29] VITALS (13 sets, daily range): BP systolic 106–123; BP diastolic 81–85; PULSE 80–98; RESP 22–41; TEMP 97.9–99.1; O2SAT 92–100
[2016-11-29] MEDS: FUROSEMIDE 100 MG/10 ML INJECTION IV SCH ×3 (00:23→17:13)
[2016-11-29] MEDS: MENTHOL COUGH DROPS (RICOLA) MM PRN ×11 (00:29→22:38)
[2016-11-29] MEDS: ALBUTEROL/IPRATROPIUM INHAL. 2.5mg-0.5mg/3ml Neb. AEROSOL SCH ×6 (01:07→21:02)
[2016-11-29 05:29] LABS: BASOPHILS % (AUTO) 0.2 % (0-2); HCT - HEMATOCRIT 42.6 % (41-53); HGB - HEMOGLOBIN 13.5 GM/DL (13.5-17.5); IMMATURE GRANULOCYTE # (AUTO) 0.02 T/MM3 (0.00-0.03); IMMATURE GRANULOCYTE % (AUTO) 0.3 % (0.0-0.5); LYMPHOCYTES # (AUTO) 0.3 T/MM3 (1-4.8); LYMPHOCYTES % (AUTO) 4.8 % (23-45); MEAN CORPUSCULAR HGB 29.7 UUG (26-34); MEAN CORPUSCULAR HGB CONC(MCHC 31.7 GM/DL (31-37); MEAN CORPUSCULAR VOLUME 93.6 UM3 (80-100); MEAN PLATELET VOLUME 10.8 UM3 (9.4-12.4); MONOCYTES # (AUTO) 0.8 T/MM3 (0-0.8); MONOCYTES % (AUTO) 12.2 % (0-9.0); NEUTROPHILS #(AUTO)-ABSOLUTE 5.1 T/MM3 (1.8-7.7); NEUTROPHILS % (AUTO) 82.5 % (33-66); RED BLOOD COUNT 4.55 M/MM3 (4.50-5.90); WBC - WHITE BLOOD COUNT 6.2 T/MM3 (4.5-11.0)
[2016-11-29 05:41] LABS: ANION GAP 9 MEQ/L (5-15); BUN/CREATININE RATIO 35 RATIO (6-26); CALCIUM 8.8 MG/DL (8.4-10.2); CHLORIDE 99 MEQ/L (98-107); CO2 - CARBON DIOXIDE 28 MEQ/L (22-30); CREATININE 1.2 MG/DL (0.8-1.5); GLOMERULAR FILTRATION RATE 61; GLUCOSE 405 MG/DL (75-110); POTASSIUM 4.5 MEQ/L (3.6-5); SODIUM 136 MEQ/L (134-144)
[2016-11-29] MEDS: INSULIN LISPRO 100 UNIT/ML SQ PRN ×4 (05:47→21:12)
[2016-11-29] MEDS: POTASSIUM CHLORIDE 20 MEQ TABLET PO SCH ×3 (08:17→17:14)
[2016-11-29] MEDS: PredniSONE 20 MG TABLET PO SCH (08:18)
[2016-11-29] MEDS: ASPIRIN *EC* 81mg TABLET PO SCH (08:18)
[2016-11-29] MEDS: MULTIVITAMIN PLAIN TABLET PO SCH (08:18)
[2016-11-29] MEDS: SPIRONOLACTONE 50 MG TABLET PO SCH (08:18)
[2016-11-29] MEDS: LOSARTAN 50 MG TABLET PO SCH (08:19)
[2016-11-29] MEDS: CEFTRIAXONE 1 G in NORMAL SALINE 100 ML IV SCH (08:25)
[2016-11-29] MEDS: CARVEDILOL 3.125 MG TABLET PO SCH ×2 (08:27→17:14)
[2016-11-29] MEDS: NORMAL SALINE 500 ML IV SCH (08:55)
--- NOTE | 2016-11-29 13:20 | PNPDOC ---
GAYLA RODRIGUEZ BOX HINGE AND LOCK ATTACHER 11/29/16 1320: Subjective Date DATE: 11/29/16 TIME: 13:18 Subjective Domenico is sitting up in a chair in his room. He reports frequent productive cough. He denies chest pain, palpitations, lightheadedness, Nausea or vomiting. Objective Vital Signs Vital signs Vital Signs 11/29/16 11/29/16 11/29/16 11/29/16 04:19 04:42 04:42 04:51 Temp 98.1 Pulse 80 84 82 Resp 22 22 B/P 110/83 Pulse Ox 100 94 O2 Delivery Nasal Cannula O2 Flow Rate 3.00 11/29/16 11/29/16 11/29/16 11/29/16 08:00 10:30 10:32 10:36 Temp 97.9 Pulse 90 90 89 Resp 30 22 B/P 123/85 Pulse Ox 95 92 O2 Delivery Nasal Cannula O2 Flow Rate 3.00 Telemetry Rhythm: Vpaced Height (Feet): 6 Height (Inches): 0.00 Weight (Kilograms): 105.000 General Alert, Orientated x 3, Cooperative ENMT (Brief) mucosa moist Neck (Brief) NOT FOUND: JVD, carotid bruits Respiratory (Brief) rales (right>left), NOT FOUND: clear all song, equal bilaterally Cardiovascular (Brief) pedal edema, regular rate, NOT FOUND: click, gallop, murmur, regular rhythm, rub Abdomen (Brief) BS normo active x4, soft, NOT FOUND: tender Integumentary (Brief) dry, pink, warm Psychiatric (Brief) alert, attentive, oriented Laboratory Laboratory Intake and Output 11/29/16 07:00 Intake Total 4479.7 ml Output Total 9080.0 ml Balance -4600.3 ml Intake Oral 2030.0 ml IV Total 2449.7 ml Output Urine Total 9080.0 ml Stool Total 0 ml # Bowel Movements 1 Laboratory Tests 11/29/16 04:45 Laboratory Tests 11/29/16 04:44 Medications Current Medications Sodium Chloride (Normal Saline IV) 1,000 ml @ 100 mls/hr Q10H IV Last administered on 11/28/16t 20:49; Start 11/27/16 at 22:03; Stop 11/29/16 at 08:50 ; Status DC Methylprednisolone Sodium Succinate 125 mg 125 mg Q6HR IV Last administered on 11/28/16 09:02; Start 11/28/16 at 03:00; Stop 11/28/16 at 11:02; Status DC Ceftriaxone Sodium 1 g/Sodium Chloride 100 ml @ 200 mls/hr DAILY IV Last administered on 11/29/16 08:25; Start 11/28/16 at 09:00 Azithromycin/ Sodium Chloride (Zithromax/NS) 250 ml @ 250 mls/hr DAILY IV ; Start 11/28/16 at 09:00; Stop 11/28/16 at 09:00; Status DC Albuterol/ Ipratropium (Duoneb) 3 ml Q4HR AEROSOL Last administered on 10:32; Start 11/28/16 at 01:00 Albuterol Sulfate (Proventil 2.5 Mg/3 ml) 2.5 mg Q2H PRN AEROSOL COUGH/ CONGESTION Last administered on 11/28/16 19:37; Start 11/27/16 at 22:30 Glucose (Glutose 15) 37.5 g PRN PRN PO HYPOGLYCEMIA; Start 11/27/16 at 22:30 Dextrose (D50w) 25 ml PRN PRN IV HYPOGLYCEMIA; Start 11/27/16 at 22:30 Insulin Human Lispro (Humalog) SS PRN SQ Last administered on 11/29/16 11:00 ; Start 11/27/16 at 22:30 Atorvastatin Calcium (LIPITOR 40 mg) 40 mg HS PO Last administered on 20:35; Start 11/28/16 at 22:00 Benzonatate (TESSALON PERLES 200 mg) 200 mg Q8H PRN PO COUGH/CONGESTION Last administered on 11/28/16 22:12; Start 11/27/16 at 22:45 Bumetanide (BUMEX 1 mg TAB) 1 mg BID. PO Last administered on 11/28/16 09:02; Start 11/28/16 at 09:00; Stop 11/28/16 at 11:49; Status DC Multivitamins Therapeutic (Theragran) 1 tab DAILY PO Last administered on 08:18; Start 11/28/16 at 09:00 Menthol (Ricola Sf) 1 babatunde PRN PRN MM Last administered on 11/29/16 08:59; Start 11/28/16 at 02:00 Prednisone (PredniSONE) 40 mg WB PO Last administered on 11/29/16 08:18; Start 11/28/16 at 11:00 Carvedilol (Coreg) 3.125 mg BIDWM PO Last administered on 11/28/16 12:55; Start 11/28/16 at 11:15; Stop 11/28/16 at 16:54; Status DC Lisinopril (Prinivil) 5 mg DAILY PO ; Start 11/28/16 at 11:15; Stop 11/28/16 at 14:31; Status DC Furosemide (Lasix) 80 mg Q8HR IV Last administered on 11/29/16 08:19; Start at 11:15 Spironolactone (Aldactone) 50 mg DAILY PO Last administered on 11/29/16 08:18 ; Start 11/28/16 at 11:15 Potassium Chloride (Kdur) 20 meq TIDWM PO Last administered on 11/29/16 12:57 ; Start 11/28/16 at 12:02 Heparin Sodium/ Sodium Chloride (HEPARIN 1,000units in NS 500ml) 1,000 unit STK- MED ONCE IV ; Start 11/28/16 at 11:13; Stop 11/28/16 at 11:14; Status DC Aspirin (Ecotrin) 81 mg DAILY PO Last administered on 11/29/16 08:18; Start at 09:00 Lidocaine HCl (Xylocaine 1%) 300 mg STK-MED ONCE .ROUTE ; Start 11/28/16 at 11: 14; Stop 11/28/16 at 11:15; Status DC Fentanyl (Fentanyl) 100 mcg STK-MED ONCE .ROUTE ; Start 11/28/16 at 11:29; Stop 11/28/16 at 11:30; Status DC Midazolam HCl (Versed) 2 mg STK-MED ONCE .ROUTE ; Start 11/28/16 at 11:30; Stop 11/28/16 at 11:31; Status DC Iodixanol (Visipaque) 1 bottle STK-MED ONCE IV ; Start 11/28/16 at 11:40; Stop 11/28/16 at 11:41; Status DC Atropine Sulfate (ATROPINE 1mg INJ) 0.5 mg Q5M PRN IV pulse<40 bpm AND symptomatic; Start 11/28/16 at 11:45 Acetaminophen (Tylenol Regular Strength) 325-650 mg Q5H PRN PO PAIN; Start at 11:45 Morphine Sulfate (Morphine) 2-4 mg Q5MIN PRN IV ANGINA; Start 11/28/16 at 11:45 Acetaminophen/ Hydrocodone Bitart (Inwood 5/325) 1-2 tabs Q5H PRN PO PAIN; Start 11/28/16 at 11:45 Promethazine HCl (Phenergan) 12.5-25 mg Q6H PRN IV NAUSEA &/OR VOMITING; Start 11/28/16 at 11:45 Nitroglycerin (Nitrostat) 0.4 mg Q5MIN PRN SL ANGINA; Start 11/28/16 at 11:45 Magnesium Hydroxide (Mom) 30 ml DAILY PRN PO CONSTIPATION; Start 11/28/16 at 11 :45 Bisacodyl (Dulcolax) 5-10 mg DAILY PRN PO CONSTIPATION; Start 11/28/16 at 11:45 Al Hydroxide/Mg Hydroxide (Maalox) 30 ml Q3H PRN PO INDIGESTION; Start at 11:45 Lorazepam (Ativan) 0.5-1 mg Q4H PRN IV ANXIETY; Start 11/28/16 at 11:45 Metoclopramide HCl (REGLAN Inj) 5-10 mg Q6H PRN IV NAUSEA &/OR VOMITING; Start 11/28/16 at 11:45 Ondansetron HCl (Zofran) 4 mg Q6H PRN IV NAUSEA &/OR VOMITING; Start 11/28/16 at 11:45 Chlorphenir/ Hydrocodone Polistirex (Tussionex) 5 ml Q12HR PRN PO ; Start 11/28 at 12:30 Losartan Potassium (COZAAR 50 mg) 25 mg DAILY PO Last administered on 08:19; Start 11/28/16 at 14:30 Metoprolol Tartrate (Lopressor) 25 mg BIDWM PO Last administered on 11/28/16 17:57; Start 11/28/16 at 17:30; Stop 11/29/16 at 08:15; Status DC Carvedilol 3.125 mg 3.125 mg BIDWM PO Last administered on 11/29/16 08:27; Start 11/29/16 at 08:15 Sodium Chloride (NS) 500 ml @ 0 mls/hr Q0M IV Last administered on 11/29/16 08 :55; Start 11/29/16 at 09:00 Microbiology Microbiology Microbiology Date/Time Source Procedure Growth Status 11/27/16 23:07 Peripheral/Iv Start Blood Culture - Preliminary NO GROWTH AFTER 24 HOURS Resulted 11/27/16 22:57 Peripheral/Iv Start Blood Culture - Preliminary NO GROWTH AFTER 24 HOURS Resulted 11/28/16 19:05 Sputum Expectorated Sputum Gram Stain - Final Resulted 11/28/16 19:05 Sputum Expectorated Sputum Sputum Culture - Preliminary EARLY GROWTH Resulted Sepsis Diagnostic Criteria Sepsis Confirmed/Suspected Infection: Yes SIRS Criteria: Pulse >= 90 beats/min Assessment & Plan Problems: (1) NSTEMI (non-ST elevated myocardial infarction) Status: Acute Assessment & Plan: Start coreg, losartan, atorvastatin and ASA, heart cath (2) Systolic CHF, acute on chronic Status: Acute Assessment & Plan: Start coreg, losartan, atorvastatin, furosemide, spironolactone, potassium replacement and ASA (3) Pneumonia involving right lung Status: Acute Assessment & Plan: Antibiotics managed by Dr. Gracia (4) Hypoxia Status: Chronic Assessment & Plan: oxygen per NC 4L (5) Cardiomyopathy Status: Chronic Assessment & Plan: Start coreg, losartan, atorvastatin, furosemide, spironolactone, potassium replacement and ASA (6) CAD (coronary artery disease) Status: Chronic Assessment & Plan: coreg, ASA, Atorvastatin Plan/Intensity of Service 11/28/16 Left heart cath today, see report. Plan medical management NSTEMI: Troponin 1) 1.56, 2) 1.260. Stop Metoprolol, Start coreg, losartan, atorvastatin and ASA, lasix, potassium, spironolactone. Thank you for allowing us to participate in the care of this patient. 11/29/16 Changes Lasix to 80mg po BID, stop potassium supplementation at this time, monitor labs. TRINITY ORO MD 12/07/16 0332: Assessment & Plan Plan/Intensity of Service After examining the patient I agree with the above assessment. I am involved in the formulation of the patient's plan of care. GAYLA RODRIGUEZ [employer] ATT[employer]ER Nov 29, 2016 13:20 TRINITY ORO MD Dec 07, 2016 13:58
--- NOTE | 2016-11-29 13:42 | NUR ---
INABILITY TO REST Patient stated after lunch "I'm too tired to even think really. I just need to sleep". Opts to wait on his bath and oral care until later. Nurse and patient arranged to close door until 1430 with only quick checks to allow him to rest with HOB up 40 degrees. At check patient is sitting up in bed, panting, and states that he woke up unable to breathe. RR is 35, sats were 93% on 3L and patient requested oxgyen to be increased to 4L/NC, also requested a cough drop. Discussed Ativan for anxiety related to air hunger, and he at this point does not want to try this option. D[place] from [facility] was called and is here for a breathing treatment.
[2016-11-29] MEDS: LORAZEPAM 1 MG TABLET PO PRN ×2 (14:05→22:52)
--- NOTE | 2016-11-29 14:09 | NUR ---
FOLLOW UP Discussed Ativan with Dr Gracia, and again with the patient, who now opts to try 0.5 mg and see whether this helps him. He says that he is breathing a bit easier since the breathing treatment but still feels irritable.
--- NOTE | 2016-11-29 14:45 | NUR ---
CM THIS WORKER VISITED PT, ALONG WITH MAR[employer]. PT WAS SITTING UP IN BED WATCHING TV. THIS PT ASSESSED PT AND HIS NEEDS. PT STATED HIS CONCERNS WERE NOT HAVING ANY MONEY FOR MEDICATION AND TO PAY HIS BILLS. PT STATED [employer] NEEDED A LETTER FROM ON PT'S MEDICAL NEEDS. PT STATED HE HAS LITTLE FAMILY SUPPORT, HAS A FRIEND IN [place] THAT HELPS HIM WITH MONEY AND DR HUDSON. PT STATED HE HAS BEEN UTILIZING THE [employer] IN [place] AND WAS INTERESTED IN [employer]. PT STATED HE HOPES TO GET ON DISABILITY AND WILL BEGIN THE PROCESS SOON. PT STATED HE HAS USED [employer] IN THE PAST AND IS INTERESTED IN UTILIZING THEIR SERVICES AGAIN. PT STATED HE DOES NOT QUALIFY FOR MAP PROGRAM. PT GAVE CONSENT FOR THIS WORKER TO CALL RESOURCES. THIS WORKER CALLED [facility] AT [phone] AND SPOKE WITH VERA GALINDO. VERA SUGGESTED THE FIRST STEPS PROGRAM FOR THE PT. [facility] WILL NEED TO CALL VERA AT [phone] WHEN PT IS READY TO DISMISS AND A WORKER WILL BE ASSESS PT AND HELP PT WITH OTHER RESOURCES IN THE FUTURE. THIS WORKER CALLED [employer] IN [place] AT [phone] AND SPOKE WITH FIONA CONNER. FIONA STATED PT WILL BE ABLE TO HAVE FOOD DELIVERED AT HIS RESIDENCE FROM 10:45-11:30AM EVERY DAY AND TO INFORM THE DELIVERER N EXTRA FROZEN MEALS FOR THE WEEKEND/AN EXTRA HOT MEAL. FIONA STATED FOR [facility] TO CALL HER/LEAVE A VOICEMAIL OF PT'S NAME AND ADDRESS AND SHE WILL MAKE SURE A MEAL IS PREPARED FOR PT ON THE NEXT DAY. THIS WORKER CALLED [facility] AT [phone] AND SPOKE WITH EVELIN HAZEL. THIS WORKER STATED PT IS INQUIRING ABOUT HELP WITH MEDICATIONS, A LETTER FROM TO HAVE [employer] CONTINUED, MAP PROGRAM. EVELIN STATED PT WAS LAST SEEN BY EV AT [facility] IN MAY. EVELIN SUGGESTED PT HAVE A FOLLOW UP APPT AND EV WOULD ASSIST PT WITH A LETTER, MEDICATIONS AND ANY OTHER RESOURCES PT WILL NEED IN THE FUTURE. EVELIN REQUESTED A LIST OF MEDICATIONS BE FAXED OVER TO [facility] AT [phone] AND HE WOULD BE IN CONTACT AFTER REVIEW. WORKER FAXED OVER LIST OF MEDICATIONS TO [facility] AND RECEIVED FAX CONFIRMATION. THIS WORKER CALLED [employer] AT EXT. [phone] AND LEFT A VOICEMAIL INQUIRING ABUT DISABILITIES AND THE PROCESS. THIS WORKER MET WITH PT IN ROOM. WORKER GAVE RESOURCE INFORMATION ON [employer], [facility], [facility], [employer] AND [employer].
--- NOTE | 2016-11-29 15:25 | NUR ---
ATIVAN FOLLOW UP Patient is still sitting upright in bed, however he presents as less restless and does acknowledge that he feels that the Ativan "helped my breathing a little bit", and that he feels a little less pent up. He has not become drowsy since the dose, and is frustrated by his inability to rest. He feels that this is steroid induced. Continue supportive care.
--- NOTE | 2016-11-29 15:42 | NUR ---
TANA THIS PT CALLED [facility] AT [phone] AND SET UP AN APPT FOR PT ON 12/03/16 AT 1:45.
--- NOTE | 2016-11-29 16:54 | PNPDOC ---
Subjective Date DATE: 11/29/16 TIME: 16:26 Subjective Mr. Garcia complains of ongoing cough interfering with sleep. Sputum is lizarraga but he thinks he's clearing secretions more effectively today than he did yesterday. He's had no fever. He denies chest pain, nausea, or vomiting. Nursing reports significant anxiety aggravating patient's insomnia and worsening dyspnea. Objective Vital Signs Vital signs Vital Signs Date Time Temp Pulse Resp B/P Pulse Ox O2 Delivery O2 Flow Rate FiO2 11/29/16 13:48 22 95 11/29/16 10:36 89 11/29/16 08:00 97.9 123/85 Nasal Cannula 3.00 I/O 3340/7105 weight unchanged from admission EXAM General-alert, in mild respiratory distress-slightly labored sitting upright HEENT-conjunctiva clear, sclera anicteric, facial structure symmetric Lungs-good airflow, crackles at the left base and faint expiratory wheezing bilaterally Cardiac-regular rhythm, S1 and S2 Abdomen-soft, mild tenderness in the right upper quadrant, bowel sounds present Extremities-no edema RLE, +2 LLE Neuro-MAEW Psych-anxious Telemetry Rhythm: Apaced Height (Feet): 6 Height (Inches): 0.00 Weight (Kilograms): 105.000 Laboratory Laboratory Laboratory Tests 11/27/16 23:07 11/28/16 06:33 11/29/16 04:45 Laboratory Tests 11/27/16 23:07 11/28/16 06:33 11/29/16 04:44 Blood sugars consistently elevated [phone] today EKG Today's EKG reviewed by myself demonstrating significant baseline artifact, occasional PVC, paced rhythm. Microbiology Microbiology Microbiology Date/Time Source Procedure Growth Status 11/27/16 23:07 Peripheral/Iv Start Blood Culture - Preliminary NO GROWTH AFTER 24 HOURS Resulted 11/27/16 22:57 Peripheral/Iv Start Blood Culture - Preliminary NO GROWTH AFTER 24 HOURS Resulted 11/28/16 19:05 Sputum Expectorated Sputum Gram Stain - Final Resulted 11/28/16 19:05 Sputum Expectorated Sputum Sputum Culture - Preliminary EARLY GROWTH Resulted Sepsis Diagnostic Criteria Sepsis Confirmed/Suspected Infection: Yes SIRS Criteria: Pulse >= 90 beats/min Assessment & Plan Problems: (1) Systolic CHF, acute on chronic Status: Acute (2) NSTEMI (non-ST elevated myocardial infarction) Status: Acute (3) Pneumonia involving right lung Status: Acute (4) COPD exacerbation Status: Acute (5) Hypoxia Status: Chronic (6) Hypertension Status: Chronic (7) Type II diabetes mellitus, uncontrolled Status: Chronic Qualifiers: Diabetes mellitus complication status: with hyperglycemia 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 (12) Anxiety Status: Acute Assessment Persistent cough with early growth of mixed species on sputum culture. Continue current antibiotics. Multiple cough suppressants available, continue current prednisone dose. Continue oxygen and titrate as heart failure/pneumonia permits Continue diuresis for CHF. Multiple medication changes per cardiology for cardiomyopathy have been made. Blood sugars uncontrolled, scheduled insulin was resumed. Social work assisting with community resources so medications can be continued after discharge. When necessary Ativan to assist with anxiety and insomnia. Plan/Intensity of Service Discussed with nursing and cardiology, chest x-ray ordered for a.m. Laboratory data reviewed. EKG is reviewed by myself. DVT Prophylaxis: SCD'S Code Status Do Not Resuscitate Hospital Course Summary Disclaimer The hospital course summary below is not to be considered part of the above Progress Note. Hospital Course Summary 11/27-11/28 Patient admitted with recurrent cough, exertional dyspnea, hypoxia, and wheezing after he was hospitalized in [place] for several days and treated with antibiotics. Following discharge she was unable to continue prescribed medications resulting in relapse. On reevaluation troponin was elevated and he was referred to [facility] for further management. Patient denies chest pain but reports he never had chest pain before his bypass surgery. He typically uses oxygen only at night but has required continuous oxygen over the past week. He additionally describes inability to take his usual cardiac medications and warfarin due to medication expense. Chest x-ray revealed infiltrate at the right base/CHF and the patient was treated with Rocephin in addition to cough suppressants and steroids for COPD exacerbation. Initial troponin was slightly elevated at 1.26. Dr. Conn was consulted. Echocardiogram demonstrated cardiomyopathy with ejection fraction of approximately 20%. Diuresis was initiated and the patient was taken to the [facility] where complete occlusion of the LAD was identified. This vessel had not been previously bypassed. Bypasses were all patent. Medical management of CAD was recommended. 11/29/16 Persistent cough with early growth of mixed species on sputum culture. Continue current antibiotics. Multiple cough suppressants available, continue current prednisone dose. Continue oxygen and titrate as heart failure/pneumonia permits Continue diuresis for CHF. Multiple medication changes per cardiology for cardiomyopathy have been made. Blood sugars uncontrolled, scheduled insulin was resumed. Social work assisting with community resources so medications can be continued after discharge. When necessary Ativan to assist with anxiety and insomnia. MIGDALIA ANGUIANO MD Nov 29, 2016 16:32
[2016-11-29] MEDS: INSULIN LISPRO 100 UNIT/ML SQ SCH (18:28)
[2016-11-29] MEDS: INSULIN GLARGINE 100 UNIT/ML SQ SCH (20:38)
[2016-11-29] MEDS: ATORVASTATIN 40 MG TABLET PO SCH (20:39)
[2016-11-29] MEDS: ALBUTEROL INH.SOLN. 2.5mg/3ml (0.083%) Neb. AEROSOL PRN (23:51)
[2016-11-30] VITALS (35 sets, daily range): BP systolic 103–141; BP diastolic 71–101; PULSE 69–105; RESP 15–36; TEMP 97.2–99.8; O2SAT 89–100
[2016-11-30] MEDS: ALBUTEROL/IPRATROPIUM INHAL. 2.5mg-0.5mg/3ml Neb. AEROSOL SCH ×6 (01:28→21:39)
[2016-11-30] MEDS: MENTHOL COUGH DROPS (RICOLA) MM PRN ×2 (03:25→05:12)
[2016-11-30] MEDS: ALBUTEROL INH.SOLN. 2.5mg/3ml (0.083%) Neb. AEROSOL PRN (03:34)
[2016-11-30] MEDS: LORAZEPAM 1 MG TABLET PO PRN ×2 (04:28→09:30)
[2016-11-30] MEDS: INSULIN LISPRO 100 UNIT/ML SQ PRN ×2 (05:34→20:57)
[2016-11-30 05:48] LABS: ALBUMIN 3.9 G/DL (3.5-5.0); ANION GAP 10 MEQ/L (5-15); BUN/CREATININE RATIO 36 RATIO (6-26); CALCIUM 8.9 MG/DL (8.4-10.2); CHLORIDE 95 MEQ/L (98-107); CO2 - CARBON DIOXIDE 34 MEQ/L (22-30); CREATININE 1.2 MG/DL (0.8-1.5); GLOMERULAR FILTRATION RATE 61; GLUCOSE 167 MG/DL (75-110); MAGNESIUM 2.1 MG/DL (1.6-2.3); POTASSIUM 4.8 MEQ/L (3.6-5); SODIUM 139 MEQ/L (134-144)
--- NOTE | 2016-11-30 06:02 | NUR ---
STATUS UPDATE TELEMETRY NOTIFIED THIS RN THAT PT SATS WERE GOING INTO THE 70S AND MAINTAINING. THIS RN INCREASED O2 VIA NC WITH NO RELIEF. RT CALLED AND ASSESSED PT NEED FOR BIPAP. ORDERED BIPAP TO BE PLACED. RN HELPED PT BACK TO BED AND BIPAP PLACED. PT BREATHING IS LESS LABORED AND SATS ARE MAINTAINING IN THE UPPER 90S TO 100. WILL CONTINUE TO MONITOR.
--- NOTE | 2016-11-30 06:32 | NUR ---
SHIFT SUMMARY PT WAS RESTLESS THROUGHOUT THE NIGHT. UP BACK AND FORTH TO THE CHAIR AND TO THE BED. SOA INSUED DURING HIS TIME MOVING BACK AND FORTH. ENCOURAGED PT TO STAY IN BED BUT HE REFUSED. PT VOICED CONCERNS WITH HIS RELATIONSHIP AND TROUBLES AT HOME WHICH HE BELIEVES IS LEADING TO HIS ANXIETY THROUGH THE NIGHT. PRN ATIVAN GIVEN TWICE ON THIS SHIFT PER PATIENTS REQUEST. PT HAS SLEPT ONLY AROUND AN HOUR AND A HALF TONIGHT. WILL CONTINUE TO MONITOR.
[2016-11-30] MEDS ORDERED: FUROSEMIDE 80 MG TABLET PO SCH (09:00)
--- NOTE | 2016-11-30 09:27 | DI ---
INDICATION: ITS.REASON: pneumonia, CHF PROCEDURE: CHEST 2-VIEWS UPRIGHT (PA \T\ LAT) Encounter: Initial COMPARISON: November 27, 2016 FINDINGS: Left cardiac pacemaker defibrillator. Prior sternotomy. Pulmonary vascular congestion is unchanged. Right lower lobe airspace disease is again noted without interval change. No pneumothorax or new infiltrate. Severely enlarged cardiac silhouette is redemonstrated. Mediastinal contours are stable. Impression: No change. .
[2016-11-30] MEDS: CEFTRIAXONE 1 G in NORMAL SALINE 100 ML IV SCH (09:28)
[2016-11-30] MEDS: NORMAL SALINE 500 ML IV SCH (09:28)
[2016-11-30] MEDS: INSULIN LISPRO 100 UNIT/ML SQ SCH ×3 (09:29→17:09)
[2016-11-30] MEDS: CARVEDILOL 3.125 MG TABLET PO SCH ×2 (09:29→17:09)
[2016-11-30] MEDS: ASPIRIN *EC* 81mg TABLET PO SCH (09:29)
[2016-11-30] MEDS: PredniSONE 20 MG TABLET PO SCH (09:29)
[2016-11-30] MEDS: SPIRONOLACTONE 50 MG TABLET PO SCH (09:29)
[2016-11-30] MEDS: LOSARTAN 50 MG TABLET PO SCH (09:29)
[2016-11-30] MEDS: MULTIVITAMIN PLAIN TABLET PO SCH (09:30)
--- NOTE | 2016-11-30 10:39 | NUR ---
TANA THIS WORKER MET BRIEFLY WITH PT ON THIS DATE. PT DENIED NEEDS AT THIS TIME HE REQUESTED A NURSE TO ASSIST IN BREATHING. THIS WORKER CONTACTED NURSE AT THIS TIME AND NOTIFIED OF PT'S REQUEST. SPOKE TO MONITORING TECH, EVELIN, AT [facility]. THEY WILL BE ABLE TO ASSIST PT IN PREVIOUSLY DISCUSSED MEDICATION LIST. WILL DISCUSS ADDITIONAL MEDICATIONS IF NEEDED. THIS WORKER CALLED AND SPOKE TO AB AT THIS TIME PT HAS OXYGEN THROUGH THIS COMPANY. AB WILL NOT BE ABLE TO ASSIST PT IN A BIPAP IF NEEDED DUE TO PT NOT HAVING INSURANCE/OR ABILITY TO PAY. CASE MANAGEMENT WILL CONTINUE TO ASSIST IN DISCHARGE PLANNING.
--- NOTE | 2016-11-30 11:58 | PNPDOC ---
GAYLA RODRIGUEZ FILM WAXER 11/30/16 1155: Subjective Date DATE: 11/30/16 TIME: 11:51 Subjective Domenico is in the bed, on Bi-pap, does not respond to voice or touch. Objective Vital Signs Vital signs Vital Signs 11/29/16 11/30/16 11/30/16 11/30/16 23:56 00:34 01:24 01:24 Temp 98.9 Pulse 100 99 107 Resp 32 24 B/P 122/92 Pulse Ox 92 96 O2 Delivery Nasal Cannula O2 Flow Rate 3.00 11/30/16 11/30/16 11/30/16 11/30/16 01:33 03:25 03:30 03:30 Temp 97.2 Pulse 98 105 103 Resp 36 24 B/P 122/86 Pulse Ox 95 98 O2 Delivery Nasal Cannula O2 Flow Rate 4.00 11/30/16 11/30/16 11/30/16 11/30/16 03:39 06:15 06:15 06:15 Pulse 103 107 107 Resp 32 Pulse Ox 100 99 O2 Delivery Spontaneous/Timed FiO2 50 11/30/16 11/30/16 11/30/16 11/30/16 06:32 07:57 08:30 08:30 Temp 97.9 Pulse 112 112 102 102 Resp 28 B/P 123/89 Pulse Ox 93 95 O2 Delivery Spontaneous/Timed Bi-pap FiO2 35 11/30/16 11/30/16 11/30/16 11/30/16 11:00 11:00 11:07 11:10 Pulse 102 99 100 Resp 18 Pulse Ox 99 100 O2 Delivery Spontaneous/Timed FiO2 40 Telemetry Rhythm: Vpaced Height (Feet): 6 Height (Inches): 0.00 Weight (Kilograms): 102.500 General No Acute Distress, Other (unresponsive to voice or touch) Respiratory (Brief) equal bilaterally (diminished, right>left), wheezes (throughout), NOT FOUND: clear all song Cardiovascular (Brief) pedal edema (LLE), regular rate, NOT FOUND: click, gallop, murmur, regular rhythm, rub Abdomen (Brief) BS normo active x4, soft, NOT FOUND: tender Integumentary (Brief) dry, pink, warm Laboratory Laboratory Laboratory Tests 11/30/16 04:55 Medications Current Medications Sodium Chloride (Normal Saline IV) 1,000 ml @ 100 mls/hr Q10H IV Last administered on 11/28/16 20:49; Start 11/27/16 at 22:03; Stop 11/29/16 at 08:50 ; Status DC Methylprednisolone Sodium Succinate 125 mg 125 mg Q6HR IV Last administered on 11/28/16 09:02; Start 11/28/16 at 03:00; Stop 11/28/16 at 11:02; Status DC Ceftriaxone Sodium 1 g/Sodium Chloride 100 ml @ 200 mls/hr DAILY IV Last administered on 11/30/16 09:28; Start 11/28/16 at 09:00 Azithromycin/ Sodium Chloride (Zithromax/NS) 250 ml @ 250 mls/hr DAILY IV ; Start 11/28/16 at 09:00; Stop 11/28/16 at 09:00; Status DC Albuterol/ Ipratropium (Duoneb) 3 ml Q4HR AEROSOL Last administered on 09:00; Start 11/28/16 at 01:00 Albuterol Sulfate (Proventil 2.5 Mg/3 ml) 2.5 mg Q2H PRN AEROSOL COUGH/ CONGESTION Last administered on 11/30/16 03:34; Start 11/27/16 at 22:30 Glucose (Glutose 15) 37.5 g PRN PRN PO HYPOGLYCEMIA; Start 11/27/16 at 22:30 Dextrose (D50w) 25 ml PRN PRN IV HYPOGLYCEMIA; Start 11/27/16 at 22:30 Atorvastatin Calcium (LIPITOR 40 mg) 40 mg HS PO Last administered on 20:39; Start 11/28/16 at 22:00 Benzonatate (TESSALON PERLES 200 mg) 200 mg Q8H PRN PO COUGH/CONGESTION Last administered on 11/28/16 22:12; Start 11/27/16 at 22:45 Bumetanide (BUMEX 1 mg TAB) 1 mg BID. PO Last administered on 11/28/16 09:02; Start 11/28/16 at 09:00; Stop 11/28/16 at 11:49; Status DC Multivitamins Therapeutic (Theragran) 1 tab DAILY PO Last administered on 09:30; Start 11/28/16 at 09:00 Menthol (Ricola Sf) 1 babatunde PRN PRN MM Last administered on 11/30/16 05:12; Start 11/28/16 at 02:00 Prednisone (PredniSONE) 40 mg WB PO Last administered on 11/30/16 09:29; Start 11/28/16 at 11:00 Carvedilol (Coreg) 3.125 mg BIDWM PO Last administered on 11/28/16 12:55; Start 11/28/16 at 11:15; Stop 11/28/16 at 16:54; Status DC Lisinopril (Prinivil) 5 mg DAILY PO ; Start 11/28/16 at 11:15; Stop 11/28/16 at 14:31; Status DC Spironolactone (Aldactone) 50 mg DAILY PO Last administered on 11/30/16 09:29 ; Start 11/28/16 at 11:15 Potassium Chloride (Kdur) 20 meq TIDWM PO Last administered on 11/29/16 17:14 ; Start 11/28/16 at 12:02; Stop 11/29/16 at 19:02; Status DC Heparin Sodium/ Sodium Chloride (HEPARIN 1,000units in NS 500ml) 1,000 unit STK- MED ONCE IV ; Start 11/28/16 at 11:13; Stop 11/28/16 at 11:14; Status DC Aspirin (Ecotrin) 81 mg DAILY PO Last administered on 11/30/16 09:29; Start at 09:00 Lidocaine HCl (Xylocaine 1%) 300 mg STK-MED ONCE .ROUTE ; Start 11/28/16 at 11: 14; Stop 11/28/16 at 11:15; Status DC Fentanyl (Fentanyl) 100 mcg STK-MED ONCE .ROUTE ; Start 11/28/16 at 11:29; Stop 11/28/16 at 11:30; Status DC Midazolam HCl (Versed) 2 mg STK-MED ONCE .ROUTE ; Start 11/28/16 at 11:30; Stop 11/28/16 at 11:31; Status DC Iodixanol (Visipaque) 1 bottle STK-MED ONCE IV ; Start 11/28/16 at 11:40; Stop 11/28/16 at 11:41; Status DC Atropine Sulfate (ATROPINE 1mg INJ) 0.5 mg Q5M PRN IV pulse<40 bpm AND symptomatic; Start 11/28/16 at 11:45 Acetaminophen (Tylenol Regular Strength) 325-650 mg Q5H PRN PO PAIN; Start at 11:45 Morphine Sulfate (Morphine) 2-4 mg Q5MIN PRN IV ANGINA; Start 11/28/16 at 11:45 Acetaminophen/ Hydrocodone Bitart ([place] 5/325) 1-2 tabs Q5H PRN PO PAIN; Start 11/28/16 at 11:45 Promethazine HCl (Phenergan) 12.5-25 mg Q6H PRN IV NAUSEA &/OR VOMITING; Start 11/28/16 at 11:45 Nitroglycerin (Nitrostat) 0.4 mg Q5MIN PRN SL ANGINA; Start 11/28/16 at 11:45 Magnesium Hydroxide (Mom) 30 ml DAILY PRN PO CONSTIPATION; Start 11/28/16 at 11 :45 Bisacodyl (Dulcolax) 5-10 mg DAILY PRN PO CONSTIPATION; Start 11/28/16 at 11:45 Al Hydroxide/Mg Hydroxide (Maalox) 30 ml Q3H PRN PO INDIGESTION; Start at 11:45 Lorazepam (Ativan) 0.5-1 mg Q4H PRN IV ANXIETY; Start 11/28/16 at 11:45 Metoclopramide HCl (REGLAN Inj) 5-10 mg Q6H PRN IV NAUSEA &/OR VOMITING; Start 11/28/16 at 11:45 Ondansetron HCl (Zofran) 4 mg Q6H PRN IV NAUSEA &/OR VOMITING; Start 11/28/16 at 11:45 Chlorphenir/ Hydrocodone Polistirex (Tussionex) 5 ml Q12HR PRN PO ; Start 11/28 at 12:30 Losartan Potassium (COZAAR 50 mg) 25 mg DAILY PO Last administered on 09:29; Start 11/28/16 at 14:30 Metoprolol Tartrate (Lopressor) 25 mg BIDWM PO Last administered on 11/28/16 17:57; Start 11/28/16 at 17:30; Stop 11/29/16 at 08:15; Status DC Carvedilol 3.125 mg 3.125 mg BIDWM PO Last administered on 11/30/16 09:29; Start 11/29/16 at 08:15 Sodium Chloride (NS) 500 ml @ 0 mls/hr Q0M IV Last administered on 11/30/16 09 :28; Start 11/29/16 at 09:00 Insulin Glargine (Lantus) 20 unit HS SQ Last administered on 11/29/16 20:38; Start 11/29/16 at 22:00 Insulin Human Lispro (Humalog) 12 unit TIDWM SQ Last administered on 11/30/16 09:29; Start 11/29/16 at 17:30 Furosemide (Lasix) 80 mg BID PO Last administered on 11/30/16 09:30; Start at 09:00 Microbiology Microbiology Microbiology Date/Time Source Procedure Growth Status 11/27/16 23:07 Peripheral/Iv Start Blood Culture - Preliminary NO GROWTH AFTER 48 HOURS Resulted 11/27/16 22:57 Peripheral/Iv Start Blood Culture - Preliminary NO GROWTH AFTER 48 HOURS Resulted 11/28/16 19:05 Sputum Expectorated Sputum Gram Stain - Final Resulted 11/28/16 19:05 Sputum Expectorated Sputum Sputum Culture - Preliminary EARLY GROWTH Resulted Radiology INDICATION: ITS.REASON: pneumonia, CHF PROCEDURE: CHEST 2-VIEWS UPRIGHT (PA \T\ LAT) Encounter: Initial COMPARISON: November 27, 2016 FINDINGS: Left cardiac pacemaker defibrillator. Prior sternotomy. Pulmonary vascular congestion is unchanged. Right lower lobe airspace disease is again noted without interval change. No pneumothorax or new infiltrate. Severely enlarged cardiac silhouette is redemonstrated. Mediastinal contours are stable. Impression: No change. Sepsis Diagnostic Criteria Sepsis Confirmed/Suspected Infection: Yes SIRS Criteria: Pulse >= 90 beats/min Assessment & Plan Problems: (1) NSTEMI (non-ST elevated myocardial infarction) Status: Acute Assessment & Plan: Start coreg, losartan, atorvastatin and ASA, heart cath (2) Systolic CHF, acute on chronic Status: Acute Assessment & Plan: Start coreg, losartan, atorvastatin, furosemide, spironolactone, potassium replacement and ASA (3) Pneumonia involving right lung Status: Acute Assessment & Plan: Antibiotics managed by Dr. Gracia (4) Hypoxia Status: Chronic Assessment & Plan: oxygen per NC 4L (5) Cardiomyopathy Status: Chronic Assessment & Plan: Start coreg, losartan, atorvastatin, furosemide, spironolactone, potassium replacement and ASA (6) CAD (coronary artery disease) Status: Chronic Assessment & Plan: coreg, ASA, Atorvastatin Plan/Intensity of Service 11/28/16 Left heart cath today, see report. Plan medical management NSTEMI: Troponin 1) 1.56, 2) 1.260. Stop Metoprolol, Start coreg, losartan, atorvastatin and ASA, lasix, potassium, spironolactone. Thank you for allowing us to participate in the care of this patient. 11/29/16 Changes Lasix to 80mg po BID, stop potassium supplementation at this time, monitor labs. 11/30/16 Change Lasix to 80mg IV BID for today due to encephalopathy TRINITY ORO MD 12/12/16 4776: Assessment & Plan Plan/Intensity of Service After examining the patient I agree with the above assessment. I am involved in the formulation of the patient's plan of care. GAYLA RODRIGUEZ APRN Nov 30, 2016 11:55 TRINITY ORO MD Dec 12, 2016 16:57
[2016-11-30 12:17] LABS: ALBUMIN 3.9 G/DL (3.5-5.0); ALBUMIN/GLOBULIN RATIO 1.3 RATIO (1.1-2.2); ALKALINE PHOSPHATASE 45 U/L (38-126); ALT (SGPT) 57 U/L (21-72); AST (SGOT) 79 U/L (17-59); TOTAL PROTEIN 6.8 G/DL (6.3-8.2)
--- NOTE | 2016-11-30 13:32 | NUR ---
DM screen A1c: 8.9, Diet: CC 1999; ate 100% previous day, but refused lunch tray. Pt was sleeping soundly, and did not want to be wakened because he not slept well for several nights, per RTT. RD will continue to monitor x 1406.
--- NOTE | 2016-11-30 14:13 | PNPDOC ---
HELIO LEVY [employer] 11/30/16 1402: Subjective Date DATE: 11/30/16 TIME: 13:58 Subjective Domenico was sleeping comfortably ; BiPAP in place. I did not awaken him - I spoke with Dr. Gracia who noticed acute encephalopathy during her rounds earlier this morning. He had hardly slept for the last 48 hours, and received some ativan to help him relax. RT was just leaving the room, and again reiterated not to wake him up. Objective Vital Signs Vital signs Vital Signs Date Time Temp Pulse Resp B/P Pulse Ox O2 Delivery O2 Flow Rate FiO2 11/30/16 13:03 73 95 Spontaneous/Timed 35 11/30/16 12:39 98.0 20 103/71 11/30/16 03:25 4.00 Telemetry Rhythm: Vpaced Height (Feet): 6 Height (Inches): 0.00 Weight (Kilograms): 102.500 General General Appearance: No Acute Distress Comments comfortably sleeping on BiPAP Respiratory (Brief) Comments clear anteriorly Cardiovascular (Brief) Cardiac: FOUND: regular rate, regular rhythm Abdomen (Brief) Abdominal: FOUND: BS normo active x4, soft Extremities (Brief) Extremity : Comments 2+ edema to LLE; no edema appreciated on RLE Musculoskeletal (Brief) Musculoskeletal: NOT FOUND: deformity Integumentary (Brief) Integumentary: FOUND: dry, warm Comments chronic PVD changes to BLE Psychiatric (Brief) Psychiatric: FOUND: other Laboratory Laboratory Laboratory Tests 11/29/16 04:45 11/30/16 04:55 Laboratory Tests 11/29/16 04:44 Microbiology Microbiology Microbiology Date/Time Source Procedure Growth Status 11/27/16 23:07 Peripheral/Iv Start Blood Culture - Preliminary NO GROWTH AFTER 48 HOURS Resulted 11/27/16 22:57 Peripheral/Iv Start Blood Culture - Preliminary NO GROWTH AFTER 48 HOURS Resulted 11/28/16 19:05 Sputum Expectorated Sputum Gram Stain - Final Resulted 11/28/16 19:05 Sputum Expectorated Sputum Sputum Culture - Preliminary EARLY GROWTH Resulted Sepsis Diagnostic Criteria Sepsis Confirmed/Suspected Infection: Yes SIRS Criteria: Pulse >= 90 beats/min Assessment & Plan Problems: (1) Systolic CHF, acute on chronic Status: Acute (2) NSTEMI (non-ST elevated myocardial infarction) Status: Acute (3) Pneumonia involving right lung Status: Acute (4) COPD exacerbation Status: Acute (5) Hypoxia Status: Chronic (6) Hypertension Status: Chronic (7) Type II diabetes mellitus, uncontrolled Status: Chronic Qualifiers: Diabetes mellitus complication status: with hyperglycemia Diabetes mellitus recruiting team lead insulin use: with senior care use Qualified Codes: E11.65 - Type 2 diabetes mellitus with hyperglycemia; 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 (12) Anxiety Status: Acute Plan/Intensity of Service Acute encephalopathy, suspect secondary to insomnia - Dr. Gracia ordered Ativan and he's currently sleeping. ABG showed hypercarbia but minimal acidosis. Pneumonia - continue Rocephin, Prednisone - consider tapering steroids. Results still pending on sputum culture. BC neg at 48 hours. Acute CHF - continue with diuresis per Dr. Conn (Lasix 80 mg PO BID). K and renal function holding steady but BUN increased slightly to 43. CO2 is up to 34. Continue medical mgt for NSTEMI - Coreg, Losartan, atorvastatin, ASA, spironolactone, K, Lasix. Hyperglycemia - improvement noted today with scheduled insulin - monitor for hypoglycemia if he doesn't eat well. DVT PPX - SCDs. Consider Hep/LMWH given coronary disease and previous hx of VTE. Discussed with CM - approved for [facility] program in which he will get weekly visits for 90 days. Looking into BiPAP for the home. DVT Prophylaxis: SCD'S Code Status Do Not Resuscitate Hospital Course Summary Disclaimer The hospital course summary below is not to be considered part of the above Progress Note. Hospital Course Summary 11/27-11/28 Patient admitted with recurrent cough, exertional dyspnea, hypoxia, and wheezing after he was hospitalized in [place] for several days and treated with antibiotics. Following discharge she was unable to continue prescribed medications resulting in relapse. On reevaluation troponin was elevated and he was referred to [facility] for further management. Patient denies chest pain but reports he never had chest pain before his bypass surgery. He typically uses oxygen only at night but has required continuous oxygen over the past week. He additionally describes inability to take his usual cardiac medications and warfarin due to medication expense. Chest x-ray revealed infiltrate at the right base/CHF and the patient was treated with Rocephin in addition to cough suppressants and steroids for COPD exacerbation. Initial troponin was slightly elevated at 1.26. Dr. Conn was consulted. Echocardiogram demonstrated cardiomyopathy with ejection fraction of approximately 20%. Diuresis was initiated and the patient was taken to the [facility] where complete occlusion of the LAD was identified. This vessel had not been previously bypassed. Bypasses were all patent. Medical management of CAD was recommended. 11/29/16 Persistent cough with early growth of mixed species on sputum culture. Continue current antibiotics. Multiple cough suppressants available, continue current prednisone dose. Continue oxygen and titrate as heart failure/pneumonia permits Continue diuresis for CHF. Multiple medication changes per cardiology for cardiomyopathy have been made. Blood sugars uncontrolled, scheduled insulin was resumed. Social work assisting with community resources so medications can be continued after discharge. When necessary Ativan to assist with anxiety and insomnia. 11/30/16 Acute encephalopathy, suspect secondary to insomnia - Dr. Gracia ordered Ativan and he's currently sleeping. ABG showed hypercarbia but minimal acidosis. Pneumonia - continue Rocephin, Prednisone - consider tapering steroids. Results still pending on sputum culture. BC neg at 48 hours. Acute CHF - continue with diuresis per Dr. Conn (Lasix 80 mg PO BID). K and renal function holding steady but BUN increased slightly to 43. CO2 is up to 34. Continue medical mgt for NSTEMI - Coreg, Losartan, atorvastatin, ASA, spironolactone, K, Lasix. Hyperglycemia - improvement noted today with scheduled insulin - monitor for hypoglycemia if he doesn't eat well. DVT PPX - SCDs. Consider Hep/LMWH given coronary disease and previous hx of VTE. Discussed with CM - approved for [facility] program in which he will get weekly visits for 90 days. Looking into BiPAP for the home. MIGDALIA GRACIA MD 11/30/16 9500: Assessment & Plan Assessment I have independently evaluated and examined this patient. I reviewed the chart, the patient's history, and the FARM PRODUCT PURCHASER's documented findings as above. We discussed and formulated the assessment and plan as above with additions as below: Antonio was seen earlier today at which time he was tapping his thumb and index finger together repeatedly reporting he was trying to figure things out. Patient did not look up or regard me and answered no to virtually any question he was asked although did acknowledge that his cough was "pretty bad" and that he didn't sleep well. He denied chest pain or nausea. Nursing reports that he was eating his napkin and and a little earlier. Nursing reports use of BiPAP for brief periods early this morning and that O2 demand has increased. Patient was very vague and glassy eyed. He did not respond when asked where he was or what year it was. He appears very drowsy. Respirations are moderately labored although airflow was good. There are crackles at the bases. Cardiac rhythm is regular and edema in the left lower extremity is improved from prior days. There is no edema on the right. Chest x-rays been reviewed by myself again demonstrating cardiomegaly with small right infiltrate and vascular congestion. Blood gas was obtained demonstrating minor respiratory acidosis and a CO2 of 69. Encephalopathy likely due to combination of sleep deprivation and mild hypercarbia. Minimally acidotic but bicarbonate has climbed from 26-34 and chemistries over the past 2 days and blood gas obtained on bi-Pap. Continue BiPAP with intent to use continuously today. Blood gas in the morning. I've asked nursing to sedate the patient today to improve his tolerance of BiPAP and to enhance sleep as the patient has had minimal sleep since admission. Lovenox initiated for DVT prophylaxis, will discuss long-term anticoagulation with cardiology in light of cardiomyopathy/history DVT-PE. In addition to above diagnoses please add: #1 encephalopathy #2 insomnia Plan/Intensity of Service X-ray reviewed by myself, laboratory data reviewed. Discussed with cardiology, and nursing. BiPAP initiated due to altered mental status. HELIO LEVY APRN Nov 30, 2016 14:02 MIGDALIA GRACIA MD Nov 30, 2016 14:46
--- NOTE | 2016-11-30 17:17 | NUR ---
END OF SHIFT REPORT DURING BEGINNING OF SHIFT, PATIENT WAS A/OX3. PATIENT ABLE TO COMMUNICATE WITH RN. THROUGHOUT MORNING CARES AND INTO THE AFTERNOON, PATIENT BECAME CONFUSED, WAS EATING [place] ON LUNCH PLATE, HALLUCINATING, PLAYING AN IMAGINARY TRUMPET, ETC. PATIENT IS FREQUENTLY NAKED BUT HE IS CONFUSED. PATIENT WAS ABLE TO SLEEP FOUR TO FIVE HOURS DURING THE AFTERNOON AFTER PRN PO ATIVAN WAS ADMINISTERED BY THIS RN. PATIENT NONCOMPLIANT WITH BIPAP. PATIENT DID WEAR BIPAP DURING NAP HOWEVER, IT WAS IMMEDIATELY TAKEN OFF WHEN HE WOKE UP. WHEN PT IS NOT ON BIPAP, PT WEARS HIGH FLOW NASAL CANNULA AT 10-12 LITERS. AGGRESSIVE DIURESIS WITH ADEQUATE URINARY OUTPUT FROM [place]. AT THE BEGINNING OF SHIFT, URINE WAS DARK YOU. URINE IS NOW LIGHT YELLOW TO STRAW COLOR. PATIENT DENIES PAIN AND N/V. PT DOES STATE HE IS SOA WHEN NOT ON BIPAP BUT REFUSES NURSING STAFF TO PUT BIPAP BACK ON. PT UP WITH ASSIST X1-2. NO BM DURING THE SHIFT. WILL CONTINUE TO MONITOR.
--- NOTE | 2016-11-30 20:20 | NUR ---
TRANSFER PT TRANSFERRED THE CRITICAL CARE UNIT AT THIS TIME. PT TRANSFERRED BY BED, WAS TRANSFERRED TO THE CCU BED WITHOUT COMPLICATIONS. ZACK WOOTEN GAVE REPORT TO ZACK MERCHANT IN CRITICAL CARE. WILL CONTINUE TO MONITOR.
--- NOTE | 2016-11-30 20:20 | NUR ---
transfer pt received from [facility] into [facility] 5. pt hooked to continuous patient monitor. placed on bipap.
[2016-11-30] MEDS: ATORVASTATIN 40 MG TABLET PO SCH (21:01)
[2016-11-30] MEDS: INSULIN GLARGINE 100 UNIT/ML SQ SCH (21:02)
--- NOTE | 2016-11-30 21:03 | NUR ---
ativan admin pt restless pulling on bipap Ativan 1mg iv admin
[2016-11-30] MEDS: LORAZEPAM 2 MG/ML INJECTION IV PRN (21:11)
[2016-11-30] MEDS: FUROSEMIDE 100 MG/10 ML INJECTION IV SCH (21:34)
[2016-12-01] VITALS (56 sets, daily range): BP systolic 63–140; BP diastolic 47–93; PULSE 70–100; RESP 14–41; TEMP 97.1–98.5; O2SAT 83–100
[2016-12-01] MEDS: ALBUTEROL/IPRATROPIUM INHAL. 2.5mg-0.5mg/3ml Neb. AEROSOL SCH ×5 (00:53→15:49)
--- NOTE | 2016-12-01 01:10 | NUR ---
Ativan admin pt pulling on bipap. Ativan 1 mg iv admin.
[2016-12-01] MEDS: LORAZEPAM 2 MG/ML INJECTION IV PRN ×2 (01:12→06:15)
--- NOTE | 2016-12-01 05:04 | NUR ---
resting well Pt resting with eyes closed. Bipap fio2 increased to 40% Spo2 89%.
[2016-12-01 05:45] LABS: HCT - HEMATOCRIT 45.9 % (41-53); HGB - HEMOGLOBIN 14.2 GM/DL (13.5-17.5); MEAN CORPUSCULAR HGB 29.3 UUG (26-34); MEAN CORPUSCULAR HGB CONC(MCHC 30.9 GM/DL (31-37); MEAN CORPUSCULAR VOLUME 94.8 UM3 (80-100); MEAN PLATELET VOLUME 10.9 UM3 (9.4-12.4); RED BLOOD COUNT 4.84 M/MM3 (4.50-5.90); WBC - WHITE BLOOD COUNT 4.2 T/MM3 (4.5-11.0)
[2016-12-01 05:49] LABS: ANION GAP 5 MEQ/L (5-15); BUN/CREATININE RATIO 44 RATIO (6-26); CALCIUM 8.2 MG/DL (8.4-10.2); CHLORIDE 96 MEQ/L (98-107); CO2 - CARBON DIOXIDE 39 MEQ/L (22-30); GLOMERULAR FILTRATION RATE 76; GLUCOSE 127 MG/DL (75-110); POTASSIUM 4.6 MEQ/L (3.6-5); SODIUM 140 MEQ/L (134-144)
[2016-12-01 06:21] LABS: BAND NEUTROPHILS # 0.1 T/MM3; LYMPHOCYTES # (MANUAL) 0.3 T/MM3 (1-4.8); MONOCYTES # (MANUAL) 0.9 T/MM3 (0-0.8); NEUTROPHILS #(MANUAL)-ABSOLUTE 2.8 T/MM3 (1.8-7.7); TOTAL CELLS COUNTED 100 %
--- NOTE | 2016-12-01 07:30 | NUR ---
STATUS Patient rests. Bipap on.
[2016-12-01] MEDS: INSULIN LISPRO 100 UNIT/ML SQ SCH ×2 (08:00→12:00)
[2016-12-01] MEDS: PredniSONE 20 MG TABLET PO SCH (08:00)
[2016-12-01] MEDS: CARVEDILOL 3.125 MG TABLET PO SCH (08:00)
[2016-12-01] MEDS: CEFTRIAXONE 1 G in NORMAL SALINE 100 ML IV SCH (08:57)
[2016-12-01] MEDS: ASPIRIN *EC* 81mg TABLET PO SCH (09:00)
[2016-12-01] MEDS: SPIRONOLACTONE 50 MG TABLET PO SCH (09:00)
[2016-12-01] MEDS ORDERED: ENOXAPARIN 40 MG/0.4 ML INJECTION SQ SCH (09:00)
[2016-12-01] MEDS: LOSARTAN 50 MG TABLET PO SCH (09:00)
[2016-12-01] MEDS: MULTIVITAMIN PLAIN TABLET PO SCH (09:00)
--- NOTE | 2016-12-01 09:15 | NUR ---
STATUS AM cares provided. Patient obtunded. Indicates he needs to use bedpan. No results. Not alert enough to take po meds this am.
[2016-12-01] MEDS: FUROSEMIDE 100 MG/10 ML INJECTION IV SCH (09:27)
--- NOTE | 2016-12-01 10:15 | NUR ---
RESP Dr. Butler here and wants to intubate. Patient's brother notified via phone. Dr. Butler visits w/ patient's brother via phone. Will await family arrival.
--- NOTE | 2016-12-01 10:44 | PNPDOC ---
Subjective Date DATE: 12/01/16 TIME: 10:27 Subjective Pt not responding to any questions but does open eyes to verbal stimuli. Unable to obtain any relevant hx. Objective Vital Signs Vital signs Vital Signs Date Time Temp Pulse Resp B/P Pulse Ox O2 Delivery O2 Flow Rate FiO2 12/01/16 09:09 84 98 Spontaneous/Timed 40 12/01/16 08:31 97.6 12/01/16 08:27 22 115/87 3.00 Telemetry Rhythm: Vpaced Height (Feet): 6 Height (Inches): 0.00 Weight (Kilograms): 96.300 General General Appearance: Confused, Uncooperative ENMT (Brief) ENMT: FOUND: mucosa moist Neck (Brief) Neck: NOT FOUND: nuchal rigidity, tenderness Respiratory (Brief) Respiratory: FOUND: wheezes Comments decreased breath sounds diffusely Cardiovascular (Brief) Cardiac: FOUND: regular rate, regular rhythm Abdomen (Brief) Abdominal: FOUND: soft, NOT FOUND: tender Extremities (Brief) Extremity : Extremity Finding: FOUND: edema, NOT FOUND: clubbing, cyanosis Integumentary (Brief) Integumentary: FOUND: dry, NOT FOUND: rash Laboratory Laboratory Laboratory Tests 11/30/16 04:55 12/01/16 05:21 Laboratory Tests 12/01/16 05:21 Microbiology Microbiology Microbiology Date/Time Source Procedure Growth Status 11/28/16 19:05 Sputum Expectorated Sputum Gram Stain - Final Complete 11/28/16 19:05 Sputum Culture - Final Normal Kacey Complete Sepsis Diagnostic Criteria Sepsis Confirmed/Suspected Infection: Yes SIRS Criteria: Pulse >= 90 beats/min Assessment & Plan Problems: (1) Systolic CHF, acute on chronic Status: Acute (2) NSTEMI (non-ST elevated myocardial infarction) Status: Acute (3) Pneumonia involving right lung Status: Acute (4) COPD exacerbation Status: Acute (5) Hypoxia Status: Chronic (6) Hypertension Status: Chronic (7) Type II diabetes mellitus, uncontrolled Status: Chronic Qualifiers: Diabetes mellitus complication status: with hyperglycemia Diabetes mellitus mcfp insulin use: with mcfp use Qualified Codes: E11.65 - Type 2 diabetes mellitus with hyperglycemia; Z79.4 - FPC (current) use of insulin Assessment & Plan: A1c 8.9 on 11/28/16 (8) Cardiomyopathy Status: Chronic (9) CAD (coronary artery disease) Status: Chronic Assessment & Plan: Prior CABG 5 vessels (10) History of pulmonary embolus (PE) Status: Chronic (11) Leg edema, left Status: Chronic Assessment & Plan: History DVT LLE; chronic nonocclusive thrombus present mid superficial femoral vein but no acute DVT. (12) Anxiety Status: Acute Assessment Acute hypoxic hypercapnic respiratory failure -Multifactorial-->COPD, CHF, PNA (aspiration?) -On home O2 2-4L per chart -Not much improvement on bipap, 20/8 FiO2 40%, hypercapnia worsening -Some concern for bipap use as mentation is worsening and pt may be aspirating Acute encephalopathy -Multifactorial-->Likely respiratory failure per above, icu delirium and possibly steroids contributing -Need to stabilize respiratory status, will consider intubation if continues to get worse COPD exacerbation -RCAT, prednisone, Rocephin + Azithro PNA -RLL Infiltrate on cxr -Viral panel negative -Abx-->Azithro + Rocephin -Will consider adding aspiration coverage although some question about pna as wbc count and procal not elevated CHF Exacerbation -Order BNP, Echo 11/2016 shows EF 20% -Has pacemaker, on Coreg and spironalactone, lasix 80mg IV BID -Daily weights, strict I/O's, fluid restriction -No MICHAEL-I?? DM -On 20U lantus, 12U humalog -accu checks, SSI Ppx -DVT-Lovenox Plan/Intensity of Service X-ray reviewed by myself, laboratory data reviewed. Discussed with cardiology, and nursing. BiPAP initiated due to altered mental status. Code Status Do Not Resuscitate Hospital Course Summary Disclaimer The hospital course summary below is not to be considered part of the above Progress Note. Hospital Course Summary 11/27-11/28 Patient admitted with recurrent cough, exertional dyspnea, hypoxia, and wheezing after he was hospitalized in [place] for several days and treated with antibiotics. Following discharge she was unable to continue prescribed medications resulting in relapse. On reevaluation troponin was elevated and he was referred to [facility] for further management. Patient denies chest pain but reports he never had chest pain before his bypass surgery. He typically uses oxygen only at night but has required continuous oxygen over the past week. He additionally describes inability to take his usual cardiac medications and warfarin due to medication expense. Chest x-ray revealed infiltrate at the right base/CHF and the patient was treated with Rocephin in addition to cough suppressants and steroids for COPD exacerbation. Initial troponin was slightly elevated at 1.26. Dr. Conn was consulted. Echocardiogram demonstrated cardiomyopathy with ejection fraction of approximately 20%. Diuresis was initiated and the patient was taken to the [facility] where complete occlusion of the LAD was identified. This vessel had not been previously bypassed. Bypasses were all patent. Medical management of CAD was recommended. 11/29/16 Persistent cough with early growth of mixed species on sputum culture. Continue current antibiotics. Multiple cough suppressants available, continue current prednisone dose. Continue oxygen and titrate as heart failure/pneumonia permits Continue diuresis for CHF. Multiple medication changes per cardiology for cardiomyopathy have been made. Blood sugars uncontrolled, scheduled insulin was resumed. Social work assisting with community resources so medications can be continued after discharge. When necessary Ativan to assist with anxiety and insomnia. 11/30/16 Acute encephalopathy, suspect secondary to insomnia - Dr. Gracia ordered Ativan and he's currently sleeping. ABG showed hypercarbia but minimal acidosis. Pneumonia - continue Rocephin, Prednisone - consider tapering steroids. Results still pending on sputum culture. BC neg at 48 hours. Acute CHF - continue with diuresis per Dr. Conn (Lasix 80 mg PO BID). K and renal function holding steady but BUN increased slightly to 43. CO2 is up to 34. Continue medical mgt for NSTEMI - Coreg, Losartan, atorvastatin, ASA, spironolactone, K, Lasix. Hyperglycemia - improvement noted today with scheduled insulin - monitor for hypoglycemia if he doesn't eat well. DVT PPX - SCDs. Consider Hep/LMWH given coronary disease and previous hx of VTE. Discussed with CM - approved for [facility] Aging program in which he will get weekly visits for 90 days. Looking into BiPAP for the home. YESSENIA JOYCE MD Dec 01, 2016 10:44
[2016-12-01 11:14] LABS: ALBUMIN/GLOBULIN RATIO 1.2 RATIO (1.1-2.2); ALKALINE PHOSPHATASE 32 U/L (38-126); ALT (SGPT) 57 U/L (21-72); AST (SGOT) 64 U/L (17-59); TOTAL PROTEIN 5.6 G/DL (6.3-8.2)
[2016-12-01] MEDS ORDERED: AZITHROMYCIN 500 MG in NORMAL SALINE 250 ML IV SCH (11:17)
[2016-12-01 11:32] LABS: PROBNP 16900 PG/ML (0-175)
--- NOTE | 2016-12-01 12:30 | NUR ---
STATUS Patient awake and states he is hungry. Tolerates sips of water. Family now at bedside and patient awake and able to feed himself.
--- NOTE | 2016-12-01 13:00 | NUR ---
FAMILY Dr. Butler here and visited w/ family and patient at length.
--- NOTE | 2016-12-01 14:42 | PNPDOC ---
HELIO SALAS EMPLOYEE WELLNESS/FITNESS COORDINATOR 12/01/16 1442: Subjective Date DATE: 12/01/16 TIME: 14:41 Subjective Resting quietly in bed with BiPap on. Denies chest discomfort. Objective Vital Signs Vital signs Vital Signs 12/01/16 12/01/16 12/01/16 12/01/16 03:00 03:00 03:13 03:13 Pulse 74 74 73 73 Resp 17 17 16 16 B/P 131/85 110/70 110/70 Pulse Ox 97 97 96 96 O2 Delivery Bi-pap Bi-pap FiO2 40 40 12/01/16 12/01/16 12/01/16 12/01/16 03:30 03:53 03:53 03:54 Pulse 74 75 77 Resp 17 16 B/P 109/77 Pulse Ox 95 95 90 O2 Delivery Bi-pap Spontaneous/Timed FiO2 40 40 12/01/16 12/01/16 12/01/16 12/01/16 04:00 04:00 04:04 04:30 Temp 98.5 Pulse 75 74 78 75 Resp 18 17 16 B/P 120/87 118/82 Pulse Ox 95 93 O2 Delivery Bi-pap Bi-pap FiO2 40 40 12/01/16 12/01/16 12/01/16 12/01/16 05:00 05:17 05:30 06:00 Pulse 73 75 86 78 Resp 17 41 21 B/P 110/72 110/76 Pulse Ox 97 96 97 98 O2 Delivery Bi-pap Spontaneous/Timed Bi-pap Bi-pap FiO2 40 40 40 40 12/01/16 12/01/16 12/01/16 12/01/16 06:04 06:30 07:00 07:07 Pulse 83 75 75 72 Resp 27 19 16 B/P 129/90 125/86 126/90 Pulse Ox 99 94 91 90 O2 Delivery Bi-pap Bi-pap Bi-pap Spontaneous/Timed FiO2 40 40 40 40 12/01/16 12/01/16 12/01/16 12/01/16 07:12 07:12 07:24 07:30 Pulse 75 72 71 Resp 20 16 B/P 108/70 Pulse Ox 90 90 O2 Delivery Bi-pap FiO2 40 12/01/16 12/01/16 12/01/16 12/01/16 08:00 08:27 08:31 09:00 Temp 97.6 Pulse 70 82 90 Resp 17 22 32 B/P 115/87 115/87 Pulse Ox 91 83 96 O2 Delivery Bi-pap Nasal Cannula Nasal Cannula O2 Flow Rate 3.00 3.00 FiO2 40 12/01/16 12/01/16 12/01/16 12/01/16 09:09 10:00 11:00 11:27 Temp 97.1 Pulse 84 78 77 Resp 20 17 Pulse Ox 98 98 97 O2 Delivery Spontaneous/Timed Bi-pap Bi-pap FiO2 40 40 40 12/01/16 12/01/16 12/01/16 12/01/16 11:50 11:50 11:57 11:59 Pulse 76 80 78 Resp 16 Pulse Ox 99 99 O2 Delivery Spontaneous/Timed FiO2 40 12/01/16 12/01/16 12/01/16 12:00 13:00 13:38 Pulse 78 100 80 Resp 20 34 Pulse Ox 100 100 95 O2 Delivery Bi-pap Bi-pap Spontaneous/Timed FiO2 40 40 40 Telemetry Rhythm: Vpaced Height (Feet): 6 Height (Inches): 0.00 Weight (Kilograms): 96.300 General Alert Eyes (Brief) EOMI ENMT (Brief) mucosa moist Respiratory (Brief) other (decreased breath sounds both bases) Cardiovascular (Brief) pedal edema (LLE), regular rate, NOT FOUND: click, gallop, murmur, regular rhythm, rub Abdomen (Brief) soft Extremities (Brief) Extremity : Extremity Finding: edema (Left LE) Integumentary (Brief) dry, pink, warm Neurologic (Brief) FOUND: other (Alert) Laboratory Laboratory Laboratory Tests Test 11/29/16 20:43 11/30/16 04:55 11/30/16 05:21 11/30/16 10:30 Glucometer 276mg/dL 164mg/dL 139mg/dL Turbidity < 20 Sodium Level 139MEQ/L Potassium Level 4.8MEQ/L Chloride Level 95MEQ/L Carbon Dioxide Level 34MEQ/L Anion Gap 10MEQ/L Blood Urea Nitrogen 43.0MG/DL Creatinine 1.2MG/DL Glomerular Filtration Rate Calc 61 BUN/Creatinine Ratio 36RATIO Glucose Level 167MG/DL Calculated Osmolality 283MOSM/KG Calcium Level 8.9MG/DL Phosphorus Level 4.0MG/DL Magnesium Level 2.1MG/DL Total Bilirubin 0.70MG/DL Conjugated Bilirubin 0.00MG/DL Unconjugated Bilirubin 0.30MG/DL Icterus Index < 2 Aspartate Amino Transf (AST/SGOT) 79U/L Alanine Aminotransferase (ALT/SGPT) 57U/L Alkaline Phosphatase 45U/L Total Protein 6.8G/DL Albumin 3.9G/DL Globulin 2.9G/DL Albumin/Globulin Ratio 1.3RATIO Chemistry Specimen Hemolysis 21 Test 11/30/16 11:30 11/30/16 14:48 11/30/16 20:50 12/01/16 05:13 Arterial Blood pH 7.340 Arterial Blood Partial Pressure CO2 69MMHG Arterial Blood pO2 at Patient Temp 69MMHG Arterial Blood HCO3 37MEQ/L Arterial Blood Total CO2 39.3MEQ/L Arterial Blood Oxygen Saturation 92.0% Arterial Blood Base Excess 9.0MMOL/L Oxygen Delivery Method (LAB) Bpap, % Blood Gas Oxygen Liter Flow Blood Gas Oxygen Percent Given 35 Blood Gas Vent Rate Blood Gas Tidal Volume ML Glucometer 112mg/dL 267mg/dL Turbidity < 20 Total Bilirubin 0.60MG/DL Conjugated Bilirubin 0.00MG/DL Unconjugated Bilirubin 0.20MG/DL Icterus Index < 2 Aspartate Amino Transf (AST/SGOT) 64U/L Alanine Aminotransferase (ALT/SGPT) 57U/L Alkaline Phosphatase 32U/L FR-Uvs-O-Type Natriuretic Peptide 81398SM/ML Total Protein 5.6G/DL Albumin 3.0G/DL Globulin 2.6G/DL Albumin/Globulin Ratio 1.2RATIO Chemistry Specimen Hemolysis 66 Test 12/01/16 05:20 12/01/16 05:21 12/01/16 06:25 12/01/16 08:55 Glucometer 113mg/dL White Blood Count 4.2T/MM3 Red Blood Count 4.84M/MM3 Hemoglobin 14.2GM/DL Hematocrit 45.9% Mean Corpuscular Volume 94.8UM3 Mean Corpuscular Hemoglobin 29.3UUG Mean Corpuscular Hemoglobin Concent 30.9GM/DL RDW Standard Deviation 53.1FL Platelet Count 113T/MM3 Mean Platelet Volume 10.9UM3 Immature Granulocyte % (Auto) % Neutrophils (%) (Auto) % Lymphocytes (%) (Auto) % Monocytes (%) (Auto) % Eosinophils (%) (Auto) % Basophils (%) (Auto) % Absolute Immature Granulocyte (auto T/MM3 Absolute Neutrophils (auto) T/MM3 Absolute Lymphocytes (auto) T/MM3 Absolute Monocytes (auto) T/MM3 Absolute Eosinophils (auto) T/MM3 Absolute Basophils (auto) T/MM3 Neutrophils % (Manual) 67.0% Band Neutrophils % 3.0% Lymphocytes % (Manual) 8.0% Monocytes % (Manual) 22.0% Absolute Neutrophils (Manual) 2.8T/MM3 Band Neutrophils # 0.1T/MM3 Lymphocytes # (Manual) 0.3T/MM3 Monocytes # (Manual) 0.9T/MM3 Red Cell Morphology Comment Normal Turbidity < 20 Sodium Level 140MEQ/L Potassium Level 4.6MEQ/L Chloride Level 96MEQ/L Carbon Dioxide Level 39MEQ/L Anion Gap 5MEQ/L Blood Urea Nitrogen 44.0MG/DL Creatinine 1.0MG/DL Glomerular Filtration Rate Calc 76 BUN/Creatinine Ratio 44RATIO Glucose Level 127MG/DL Calculated Osmolality 282MOSM/KG Calcium Level 8.2MG/DL Icterus Index < 2 Chemistry Specimen Hemolysis 65 Arterial Blood pH 7.380 7.310 Arterial Blood Partial Pressure CO2 75MMHG 92MMHG Arterial Blood pO2 at Patient Temp 76MMHG 65MMHG Arterial Blood HCO3 44MEQ/L 46MEQ/L Arterial Blood Total CO2 46.7MEQ/L 49.1MEQ/L Arterial Blood Oxygen Saturation 95.0% 90.0% Arterial Blood Base Excess 15.8MMOL/L 15.9MMOL/L Oxygen Delivery Method (LAB) Bpap, % Nasal cannula,liters Blood Gas Oxygen Liter Flow 4 Blood Gas Oxygen Percent Given 40 Blood Gas Vent Rate Blood Gas Tidal Volume ML ML Test 12/01/16 09:57 12/01/16 11:35 12/01/16 11:40 12/01/16 13:58 Glucometer 105mg/dL 168mg/dL Arterial Blood pH 7.380 Arterial Blood Partial Pressure CO2 78MMHG Arterial Blood pO2 at Patient Temp 87MMHG Arterial Blood HCO3 46MEQ/L Arterial Blood Total CO2 48.5MEQ/L Arterial Blood Oxygen Saturation 96.0% Arterial Blood Base Excess 17.2MMOL/L Oxygen Delivery Method (LAB) Bpap, % Blood Gas Oxygen Liter Flow Blood Gas Oxygen Percent Given 40.0 Blood Gas Vent Rate Blood Gas Tidal Volume ML Procalcitonin < 0.05NG/ML Laboratory Tests 12/01/16 05:21 Laboratory Tests 12/01/16 05:21 Medications Current Medications Sodium Chloride (Normal Saline IV) 1,000 ml @ 100 mls/hr Q10H IV Last administered on 11/28/16 20:49; Start 11/27/16 at 22:03; Stop 11/29/16 at 08:50 ; Status DC Methylprednisolone Sodium Succinate 125 mg 125 mg Q6HR IV Last administered on 11/28/16 09:02; Start 11/28/16 at 03:00; Stop 11/28/16 at 11:02; Status DC Ceftriaxone Sodium/Sodium Chloride (Rocephin/NS) 100 ml @ 200 mls/hr DAILY IV Last administered on 12/01/16 08:57; Start 11/28/16 at 09:00 Albuterol/ Ipratropium (Duoneb) 3 ml Q4HR AEROSOL Last administered on 11:50; Start 11/28/16 at 01:00 Albuterol Sulfate (Proventil 2.5 Mg/3 ml) 2.5 mg Q2H PRN AEROSOL COUGH/ CONGESTION Last administered on 11/30/16 03:34; Start 11/27/16 at 22:30 Glucose (Glutose 15) 37.5 g PRN PRN PO HYPOGLYCEMIA; Start 11/27/16 at 22:30 Dextrose (D50w) 25 ml PRN PRN IV HYPOGLYCEMIA; Start 11/27/16 at 22:30 Atorvastatin Calcium (LIPITOR 40 mg) 40 mg HS PO Last administered on 21:01; Start 11/28/16 at 22:00 Benzonatate (TESSALON PERLES 200 mg) 200 mg Q8H PRN PO COUGH/CONGESTION Last administered on 11/28/16 22:12; Start 11/27/16 at 22:45 Bumetanide (BUMEX 1 mg TAB) 1 mg BID. PO Last administered on 11/28/16 09:02; Start 11/28/16 at 09:00; Stop 11/28/16 at 11:49; Status DC Multivitamins Therapeutic (Theragran) 1 tab DAILY PO Last administered on 09:30; Start 11/28/16 at 09:00 Menthol (Ricola Sf) 1 babatunde PRN PRN MM Last administered on 11/30/16 05:12; Start 11/28/16 at 02:00 Prednisone (PredniSONE) 40 mg WB PO Last administered on 11/30/16 09:29; Start 11/28/16 at 11:00 Carvedilol (Coreg) 3.125 mg BIDWM PO Last administered on 11/28/16 12:55; Start 11/28/16 at 11:15; Stop 11/28/16 at 16:54; Status DC Lisinopril (Prinivil) 5 mg DAILY PO ; Start 11/28/16 at 11:15; Stop 11/28/16 at 14:31; Status DC Spironolactone (Aldactone) 50 mg DAILY PO Last administered on 11/30/16 09:29 ; Start 11/28/16 at 11:15 Potassium Chloride (Kdur) 20 meq TIDWM PO Last administered on 11/29/16 17:14 ; Start 11/28/16 at 12:02; Stop 11/29/16 at 19:02; Status DC Heparin Sodium/ Sodium Chloride (HEPARIN 1,000units in NS 500ml) 1,000 unit STK- MED ONCE IV ; Start 11/28/16 at 11:13; Stop 11/28/16 at 11:14; Status DC Aspirin (Ecotrin) 81 mg DAILY PO Last administered on 11/30/16 09:29; Start at 09:00 Lidocaine HCl (Xylocaine 1%) 300 mg STK-MED ONCE .ROUTE ; Start 11/28/16 at 11: 14; Stop 11/28/16 at 11:15; Status DC Fentanyl (Fentanyl) 100 mcg STK-MED ONCE .ROUTE ; Start 11/28/16 at 11:29; Stop 11/28/16 at 11:30; Status DC Midazolam HCl (Versed) 2 mg STK-MED ONCE .ROUTE ; Start 11/28/16 at 11:30; Stop 11/28/16 at 11:31; Status DC Iodixanol (Visipaque) 1 bottle STK-MED ONCE IV ; Start 11/28/16 at 11:40; Stop 11/28/16 at 11:41; Status DC Atropine Sulfate (ATROPINE 1mg INJ) 0.5 mg Q5M PRN IV pulse<40 bpm AND symptomatic; Start 11/28/16 at 11:45 Acetaminophen (Tylenol Regular Strength) 325-650 mg Q5H PRN PO PAIN; Start at 11:45; Stop 12/01/16 at 09:26; Status DC Morphine Sulfate (Morphine) 2-4 mg Q5MIN PRN IV ANGINA; Start 11/28/16 at 11:45 Acetaminophen/ Hydrocodone Bitart ([place] 5/325) 1-2 tabs Q5H PRN PO PAIN; Start 11/28/16 at 11:45; Stop 12/01/16 at 09:26; Status DC Promethazine HCl (Phenergan) 12.5-25 mg Q6H PRN IV NAUSEA &/OR VOMITING; Start 11/28/16 at 11:45 Nitroglycerin (Nitrostat) 0.4 mg Q5MIN PRN SL ANGINA; Start 11/28/16 at 11:45 Magnesium Hydroxide (Mom) 30 ml DAILY PRN PO CONSTIPATION; Start 11/28/16 at 11 :45 Bisacodyl (Dulcolax) 5-10 mg DAILY PRN PO CONSTIPATION; Start 11/28/16 at 11:45 Al Hydroxide/Mg Hydroxide (Maalox) 30 ml Q3H PRN PO INDIGESTION; Start at 11:45 Lorazepam (Ativan) 0.5-1 mg Q4H PRN IV ANXIETY Last administered on 12/01/16 06:15; Start 11/28/16 at 11:45; Stop 12/01/16 at 09:26; Status DC Metoclopramide HCl (REGLAN Inj) 5-10 mg Q6H PRN IV NAUSEA &/OR VOMITING; Start 11/28/16 at 11:45 Ondansetron HCl (Zofran) 4 mg Q6H PRN IV NAUSEA &/OR VOMITING; Start 11/28/16 at 11:45 Chlorphenir/ Hydrocodone Polistirex (Tussionex) 5 ml Q12HR PRN PO ; Start 11/28 at 12:30; Stop 12/01/16 at 09:26; Status DC Losartan Potassium (COZAAR 50 mg) 25 mg DAILY PO Last administered on 09:29; Start 11/28/16 at 14:30 Metoprolol Tartrate (Lopressor) 25 mg BIDWM PO Last administered on 11/28/16 17:57; Start 11/28/16 at 17:30; Stop 11/29/16 at 08:15; Status DC Carvedilol 3.125 mg 3.125 mg BIDWM PO Last administered on 11/30/16 17:09; Start 11/29/16 at 08:15 Sodium Chloride (NS) 500 ml @ 0 mls/hr Q0M IV Last administered on 11/30/16 09 :28; Start 11/29/16 at 09:00 Insulin Glargine (Lantus) 20 unit HS SQ Last administered on 11/30/16 21:02; Start 11/29/16 at 22:00 Insulin Human Lispro (Humalog) 12 unit TIDWM SQ Last administered on 11/30/16 17:09; Start 11/29/16 at 17:30 Furosemide (Lasix) 80 mg BID PO Last administered on 11/30/16 09:30; Start at 09:00; Stop 11/30/16 at 15:50; Status DC Enoxaparin Sodium (Lovenox) 40 mg DAILY SQ Last administered on 12/01/16 10:38 ; Start 12/01/16 at 09:00 Furosemide 80 mg 80 mg Q12HR IV Last administered on 12/01/16 09:27; Start at 21:00 Azithromycin/ Sodium Chloride (Zithromax/NS) 250 ml @ 250 mls/hr DAILY IV Last administered on 12/01/16 11:43; Start 12/01/16 at 11:17 Microbiology Microbiology Microbiology Date/Time Source Procedure Growth Status 11/28/16 19:05 Sputum Expectorated Sputum Gram Stain - Final Complete 11/28/16 19:05 Sputum Culture - Final Normal [facility] Complete Radiology DATE OF EXAM: 11/30/16 ORDERING DOCTOR: MIGDALIA GRACIA MD TYPE OF EXAM: CHEST, PA & LATERAL REASON FOR EXAM: pneumonia, CHF INDICATION: ITS.REASON: pneumonia, CHF PROCEDURE: CHEST 2-VIEWS UPRIGHT (PA \T\ LAT) Encounter: Initial COMPARISON: November 27, 2016 FINDINGS: Left cardiac pacemaker defibrillator. Prior sternotomy. Pulmonary vascular congestion is unchanged. Right lower lobe airspace disease is again noted without interval change. No pneumothorax or new infiltrate. Severely enlarged cardiac silhouette is redemonstrated. Mediastinal contours are stable. Impression: No change. Sepsis Diagnostic Criteria Sepsis Confirmed/Suspected Infection: Yes SIRS Criteria: Pulse >= 90 beats/min Assessment & Plan Problems: (1) NSTEMI (non-ST elevated myocardial infarction) Status: Acute Assessment & Plan: Start coreg, losartan, atorvastatin and ASA, heart cath (2) Systolic CHF, acute on chronic Status: Acute Assessment & Plan: Start coreg, losartan, atorvastatin, furosemide, spironolactone, potassium replacement and ASA (3) Pneumonia involving right lung Status: Acute Assessment & Plan: Antibiotics managed by Dr. Gracia (4) Hypoxia Status: Chronic Assessment & Plan: oxygen per [place] 4L (5) Cardiomyopathy Status: Chronic Assessment & Plan: Start coreg, losartan, atorvastatin, furosemide, spironolactone, potassium replacement and ASA (6) CAD (coronary artery disease) Status: Chronic Assessment & Plan: coreg, ASA, Atorvastatin Plan/Intensity of Service 11/28/16 Left heart cath today, see report. Plan medical management NSTEMI: Troponin 1) 1.56, 2) 1.260. Stop Metoprolol, Start coreg, losartan, atorvastatin and ASA, lasix, potassium, spironolactone. Thank you for allowing us to participate in the care of this patient. 11/29/16 Changes Lasix to 80mg po BID, stop potassium supplementation at this time, monitor labs. 11/30/16 Change Lasix to 80mg IV BID for today due to encephalopathy 12/01/16 Resting quietly in bed with BiPap on. Denies chest discomfort. Vitals stable. In paced rhythm with stable vitals. Has diuresed 2 liters in the past 24 hours. BUN slightly elevated; creatinine stable. Wt down 9 KG since admission. continue coreg, losartan, atorvastatin and ASA, lasix, potassium, spironolactone. Continue to monitor closely. Thank you for this consult! We will follow with you. TRINITY ORO MD 12/07/16 1400: Assessment & Plan Plan/Intensity of Service After examining the patient I agree with the above assessment. I am involved in the formulation of the patient's plan of care. HELIO SALAS APRN Dec 01, 2016 14:42 TRINITY ORO MD Dec 07, 2016 14:00
[2016-12-01] MEDS ORDERED: HALOPERIDOL 5 MG/ML INJECTION IV ONE (15:45)
--- NOTE | 2016-12-01 16:15 | NUR ---
STATUS Patient restless and pulls off bipap. Unable to reason w/ patient. Applied O2 per NC d/t sats dropping to 65% after pulling off bipap. Update given to Dr. Butler. Will try Haldol for restlessness.
--- NOTE | 2016-12-01 18:00 | NUR ---
RESP Patient intubated per MD. RT at bedside. Update given to family.
[2016-12-01] MEDS ORDERED: PROPOFOL 1000mg 100 ML IV SCH (19:00)
[2016-12-01] MEDS ORDERED: MIDAZOLAM 5mg/5ml INJECTION IV ONE (20:11)
--- NOTE | 2016-12-01 20:12 | NUR ---
DISCHARGE Patient dismissed to [facility] per orders. Report called to Haley DIXON. Stepdaughter, brother and sister notified of transfer. Dr. Butler spoke w/ patient's sister as well.
--- NOTE | 2016-12-02 10:15 | DI ---
Indication: ITS.REASON: post et tube placement PROCEDURE: CHEST 1 VIEW: Encounter: Initial Comparison: November 30, 2016 Findings: New endotracheal tube in place with the tip projecting 2.7 cm above the fidencio. Pulmonary edema has slightly improved. No new areas of airspace consolidation. No pneumothorax. Heart size and mediastinal contours are stable. Left cardiac pacemaker defibrillator. Impression: New endotracheal tube appears appropriately positioned. .
== END 2016-12-01 20:12 | disposition short-term general hospital (02) | DRG 280 ==
LOC: SRG 21:54 → OBSVTOIN 22:03 → SRG 11-28 13:56 → CCU 11-30 20:20
PROVIDERS: ADMIT Internal Medicine; ATTEND Internal Medicine
PROC: B24BZZZ Ultrasonography of Heart with Aorta (ICD-10-PCS; principal; 2016-11-28)
PROC: 4A023N7 Measurement of Cardiac Sampling and Pressure, Left Heart, Percutaneous Approach (ICD-10-PCS; 2016-11-28)
PROC: B2111ZZ Fluoroscopy of Multiple Coronary Arteries using Low Osmolar Contrast (ICD-10-PCS; 2016-11-28)
PROC: B2151ZZ Fluoroscopy of Left Heart using Low Osmolar Contrast (ICD-10-PCS; 2016-11-28)
PROC: B2121ZZ Fluoroscopy of Single Coronary Artery Bypass Graft using Low Osmolar Contrast (ICD-10-PCS; 2016-11-28)
PROC: B41F1ZZ Fluoroscopy of Right Lower Extremity Arteries using Low Osmolar Contrast (ICD-10-PCS; 2016-11-28)
PROC: 5A09457 Assistance with Respiratory Ventilation, 24-96 Consecutive Hours, Continuous Positive Airway Pressure (ICD-10-PCS; 2016-11-30)
DX: I21.4 Non-ST elevation (NSTEMI) myocardial infarction (principal); I50.23 Acute on chronic systolic (congestive) heart failure; J96.01 Acute respiratory failure with hypoxia; G93.40 Encephalopathy, unspecified; J44.1 Chronic obstructive pulmonary disease with (acute) exacerbation; J18.9 Pneumonia, unspecified organism; I13.0 Hypertensive heart and chronic kidney disease with heart failure and stage 1 through stage 4 chronic kidney disease, or unspecified chronic kidney disease; I25.810 Atherosclerosis of coronary artery bypass graft(s) without angina pectoris; J44.0 Chronic obstructive pulmonary disease with (acute) lower respiratory infection; E11.65 Type 2 diabetes mellitus with hyperglycemia; E11.22 Type 2 diabetes mellitus with diabetic chronic kidney disease; Z66 Do not resuscitate; I25.5 Ischemic cardiomyopathy; N18.9 Chronic kidney disease, unspecified; F41.9 Anxiety disorder, unspecified; G47.00 Insomnia, unspecified; I73.9 Peripheral vascular disease, unspecified; Z99.81 Dependence on supplemental oxygen; Z86.718 Personal history of other venous thrombosis and embolism; Z86.711 Personal history of pulmonary embolism; Z79.84 Long term (current) use of oral hypoglycemic drugs; Z79.01 Long term (current) use of anticoagulants; Z79.899 Other long term (current) drug therapy; Z95.0 Presence of cardiac pacemaker
CPT/HCPCS: 36415; 36600; 80048; 80053; 80069; 80076; 82803; 82948; 83036; 83605; 83735; 83880; 84145; 84484; 85025; 85610; 87040; 87070; 87205; 87486; 87581; 87633; 87798; 93005; 93306; 93455; 93458; 94002; 94003; 94640